=== PATIENT | male | born 1955 | race African-American/Black ===

== ENCOUNTER 2021-05-01 15:08 | Inpatient (IN) | payer OTHER ==
[2021-05-01] MEDS ORDERED: SODIUM CHLORIDE 2,313 ML IV ONE (16:30)
[2021-05-01] MEDS ORDERED: PIPERACILLIN/TAZOBACTAM 4.5 GM VIAL IVPB ONE (16:31)
[2021-05-01] MEDS ORDERED: VANCOMYCIN 1,000 MG in DEXTROSE 5%-WATER - 250 ML IVPB ONE (16:31)
[2021-05-01] MEDS ORDERED: VANCOMYCIN 1 GRAM (PRE-DOCKED) 1,000 MG/250 ML BAG IVPB ONE (16:40)
[2021-05-01] MEDS ORDERED: PIPERACILLIN/TAZOB 4.5 GM 4.5 GM/100 ML BAG IVPB ONE (16:40)
[2021-05-01 18:06] LABS: BASO % 0.8 % (0-2.0); EOS % 4.8 % (0-4.5); HEMATOCRIT 34.9 % (35.4-49); HEMOGLOBIN 11.3 GM/dL (11.7-16.9); LYMPH % 12.3 % (8-40); MCH 25.9 pg (25.7-33.7); MCHC 32.4 g/dl (32.0-35.9); MEAN PLT VOLUME 7.1 fl (7.5-11.1); MONO % 12.2 % (3.8-10.2); NEUT % 69.9 % (42.8-82.8); PLATELET COUNT 203 10^3/uL (134-434); RBC 4.37 M/mm3 (4.00-5.60); RDW 14.5 % (11.9-15.9); WHITE BLOOD COUNT 5.8 K/mm3 (4.0-10.0)
[2021-05-01 18:10] LABS: EPI CELLS >36 /uL (0-25.1); HYALINE CASTS 59 /uL (0-3.1); URINE APPEARANCE TURBID; URINE BACTERIA >9,000 /uL (0-1359); URINE BILIRUBIN NEGATIVE (NEGATIVE); URINE COLOR YELLOW; URINE GLUCOSE (UA) NEGATIVE (NEGATIVE); URINE KETONE NEGATIVE (NEGATIVE); URINE LEUK ESTERASE 3+ (NEGATIVE); URINE NITRITE POSITIVE (NEGATIVE); URINE PROTEIN 2+ (NEGATIVE); URINE UROBILINOGEN 0.2 mg/dL (0.2-1.0); URINE WBC 26550 /uL (0-25.8)
[2021-05-01 18:14] LABS: INR 1.19 (0.83-1.09); PROTHROMBIN TIME (PATIENT) 13.3 SEC (9.7-13.0)
[2021-05-01 18:16] LABS: ACTIVATED PTT 37.3 SECONDS (25.2-36.5)
[2021-05-01 18:25] LABS: URINE RBC 149.3 /uL (0-23.9)
[2021-05-01 18:31] LABS: CHLORIDE 104 mmol/L (98-107); SODIUM 138 mmol/L (136-145)
[2021-05-01 18:32] LABS: ANION GAP 9 MMOL/L (8-16); BLOOD UREA NITROGEN 10.2 mg/dL (7-18); CO2 25 mmol/L (21-32); GLUCOSE,RANDOM 90 mg/dL (74-106)
[2021-05-01 18:36] LABS: CREATININE 1.4 mg/dL (0.55-1.3); SGPT/ALT < 6 U/L (13-61)
[2021-05-01 18:37] LABS: SGOT/AST 13 U/L (15-37)
[2021-05-01 18:38] LABS: ALK PHOS 44 U/L (45-117); BILIRUBIN,TOTAL 1.4 mg/dL (0.2-1); TOT PROT 7.6 g/dl (6.4-8.2)
[2021-05-01] MEDS ORDERED: ENOXAPARIN NA (PORCINE) 80 MG/0.8 ML DISP.SYRIN SQ SCH (22:30)
[2021-05-01] MEDS ORDERED: SODIUM CHLORIDE 1,000 ML IV SCH (22:30)
[2021-05-01] MEDS ORDERED: HEPARIN NA (PORCINE) 5,000 UNITS/ML 1ML VIAL IVPUSH PRN (23:59)
[2021-05-02] MEDS ORDERED: HEPARIN INFUSION - 25,000 UNITS/500 ML INFUS.BAG IVPB ONE (00:42)
[2021-05-02] MEDS ORDERED: HEPARIN NA (PORCINE) 5,000 UNITS/ML 1ML VIAL ONE (00:42)
[2021-05-02] MEDS: HEPARIN INFUSION - 25,000 UNITS/500 ML INFUS.BAG IVPB SCH (00:48)
[2021-05-02] MEDS: HEPARIN NA (PORCINE) 5,000 UNITS/ML 1ML VIAL IVPUSH PRN ×2 (00:48→21:10)
[2021-05-02] MEDS ORDERED: PIPERACILLIN/TAZOBACTAM 3.375 GM VIAL IVPB ONE ×3 (01:50→17:30)
[2021-05-02] MEDS ORDERED: DEXTROSE 5%-WATER - 50 ML IVPB ONE ×3 (01:51→17:30)
[2021-05-02] MEDS: PIPERACILLIN/TAZOB 3.375 GM 3.375 GM in DEXTROSE 5%-WATER - 50 ML IVPB SCH ×3 (01:57→17:34)
[2021-05-02] MEDS ORDERED: ZINC OXIDE/PANTHENOL/VITAMIN E 56 GM TUBE TP SCH (04:00)
[2021-05-02] MEDS ORDERED: ACETAMINOPHEN 325 MG TABLET (FP) PO PRN (05:22)
[2021-05-02] MEDS ORDERED: VANCOMYCIN 1 GM in D5W (PRE-DOCKED) 1,000 MG/250 ML IVPB SCH (07:00)
[2021-05-02] MEDS ORDERED: PT OWN MED DRAWER 7, Y5N ONE ×2 (09:17→14:49)
[2021-05-02] MEDS: POLYETHYLENE GLYCOL (HEALTHYLAX) 3350 17 GM PACKET PO SCH (09:22)
[2021-05-02] MEDS: PANTOPRAZOLE 40 MG TABLET PO SCH (09:23)
[2021-05-02] MEDS: ZINC OXIDE/PANTHENOL/VITAMIN E 56 GM TUBE TP SCH (09:24)
[2021-05-02] MEDS ORDERED: FLU VACC QS2021-22(6MOS UP)/PF 60 MCG/0.5 ML SYRINGE IM ONE (10:00)
[2021-05-02 10:32] LABS: BASO % 0.5 % (0-2.0); EOS % 5.9 % (0-4.5); HEMATOCRIT 33.3 % (35.4-49); LYMPH % 10.6 % (8-40); MCH 26.4 pg (25.7-33.7); MCHC 32.9 g/dl (32.0-35.9); MEAN CELL VOLUME 80.4 fl (80-96); MEAN PLT VOLUME 7.7 fl (7.5-11.1); MONO % 14.8 % (3.8-10.2); NEUT % 68.2 % (42.8-82.8); PLATELET COUNT 193 10^3/uL (134-434); RBC 4.14 M/mm3 (4.00-5.60); RDW 14.5 % (11.9-15.9); WHITE BLOOD COUNT 5.7 K/mm3 (4.0-10.0)
[2021-05-02 11:36] LABS: ALBUMIN 2.5 g/dl (3.4-5.0); ALK PHOS 41 U/L (45-117); ANION GAP 9 MMOL/L (8-16); BILIRUBIN,TOTAL 1.2 mg/dL (0.2-1); BLOOD UREA NITROGEN 9.4 mg/dL (7-18); CALCIUM 8.5 mg/dL (8.5-10.1); CHLORIDE 113 mmol/L (98-107); CO2 22 mmol/L (21-32); CREATININE 1.5 mg/dL (0.55-1.3); GLUCOSE,RANDOM 103 mg/dL (74-106); MAGNESIUM 2.1 mg/dL (1.8-2.4); PHOSPHOROUS 3.2 mg/dL (2.5-4.9); SGOT/AST 12 U/L (15-37); SGPT/ALT < 6 U/L (13-61); SODIUM 143 mmol/L (136-145); TOT PROT 7.4 g/dl (6.4-8.2)
[2021-05-02 14:06] LABS: IRON SERUM 23 ug/dL (50-175); TOTAL IRON BINDING CAPACITY 217 ug/dL (250-450)
[2021-05-02] MEDS: TAMSULOSIN HCL 0.4 MG CAP PO SCH (14:17)
[2021-05-02] MEDS: LACTATED RINGERS SOLUTION 1,000 ML/1,000 ML INFUS.BAG IV SCH (14:18)
[2021-05-02] MEDS ORDERED: SENNOSIDES 8.6MG TABLET (FP) PO SCH (22:00)
[2021-05-03] MEDS ORDERED: PIPERACILLIN/TAZOBACTAM 3.375 GM VIAL IVPB ONE ×4 (00:27→17:08)
[2021-05-03] MEDS ORDERED: DEXTROSE 5%-WATER - 50 ML IVPB ONE ×3 (00:27→17:09)
[2021-05-03] MEDS: PIPERACILLIN/TAZOB 3.375 GM 3.375 GM in DEXTROSE 5%-WATER - 50 ML IVPB SCH ×3 (01:04→17:27)
[2021-05-03] MEDS: HEPARIN INFUSION - 25,000 UNITS/500 ML INFUS.BAG IVPB SCH ×3 (05:33→15:49)
[2021-05-03] MEDS: LACTATED RINGERS SOLUTION 1,000 ML/1,000 ML INFUS.BAG IV SCH ×2 (06:37→11:35)
[2021-05-03] MEDS ORDERED: VANCOMYCIN 1 GM in D5W (PRE-DOCKED) 1,000 MG/250 ML IVPB SCH (07:00)
[2021-05-03] MEDS: TAMSULOSIN HCL 0.4 MG CAP PO SCH (09:05)
[2021-05-03] MEDS: POLYETHYLENE GLYCOL (HEALTHYLAX) 3350 17 GM PACKET PO SCH (09:05)
[2021-05-03] MEDS: PANTOPRAZOLE 40 MG TABLET PO SCH (09:05)
[2021-05-03] MEDS ORDERED: ceFAZolin SODIUM 1 GM VIAL IVPB ONE ×2 (09:07→10:18)
[2021-05-03 09:34] LABS: HEMATOCRIT 31.2 % (35.4-49); HEMOGLOBIN 10.2 GM/dL (11.7-16.9); MCH 26.6 pg (25.7-33.7); MCHC 32.6 g/dl (32.0-35.9); MEAN CELL VOLUME 81.5 fl (80-96); MEAN PLT VOLUME 8.4 fl (7.5-11.1); PLATELET COUNT 204 10^3/uL (134-434); RBC 3.82 M/mm3 (4.00-5.60); RDW 14.7 % (11.9-15.9); WHITE BLOOD COUNT 4.1 K/mm3 (4.0-10.0)
[2021-05-03] MEDS ORDERED: MIDAZOLAM HCL 2 MG/2 ML SINGLE DOSE VIAL ONE (10:11)
[2021-05-03] MEDS ORDERED: DEXAMETHASONE SOD PHOSPHATE 4 MG/1 ML VIAL ONE (10:11)
[2021-05-03] MEDS ORDERED: PROPOFOL 20 ML ONE ×2 (10:11)
[2021-05-03] MEDS ORDERED: KETOROLAC TROMETHAMINE 30 MG/1 ML VIAL ONE (10:11)
[2021-05-03 10:34] LABS: BLOOD UREA NITROGEN 8.1 mg/dL (7-18); CALCIUM 8.2 mg/dL (8.5-10.1)
[2021-05-03 10:37] LABS: CREATININE 1.3 mg/dL (0.55-1.3)
[2021-05-03] MEDS ORDERED: oxyCODONE HCL 5 MG TABLET PO PRN (10:52)
[2021-05-03] MEDS ORDERED: ONDANSETRON 4 MG/2 ML VIAL IVPUSH PRN ×2 (10:52→11:32)
[2021-05-03] MEDS ORDERED: PROMETHAZINE HCL 25 MG/1 ML VIAL IVPUSH PRN ×2 (10:52→11:32)
[2021-05-03] MEDS: ZINC OXIDE/PANTHENOL/VITAMIN E 56 GM TUBE TP SCH (10:57)
[2021-05-03] MEDS ORDERED: HEPARIN NA (PORCINE) 5,000 UNITS/ML 1ML VIAL IVPUSH PRN ×2 (11:32)
[2021-05-03] MEDS ORDERED: HYDROmorphone HCl 2 MG/ML VIAL ONE (11:37)
[2021-05-03] MEDS ORDERED: HYDROmorphone HCl 2 MG/ML VIAL IVPUSH ONE ×2 (11:40→14:00)
[2021-05-03] MEDS ORDERED: HEPARIN INFUSION - 25,000 UNITS/500 ML INFUS.BAG IVPB ONE (11:52)
[2021-05-03] MEDS ORDERED: ACETAMINOPHEN 325 MG TABLET (FP) PO PRN (13:17)
[2021-05-03 16:43] VITALS: BMI 20.5
[2021-05-03] MEDS: SENNOSIDES 8.6MG TABLET (FP) PO SCH (22:18)
[2021-05-04] MEDS ORDERED: PIPERACILLIN/TAZOBACTAM 3.375 GM VIAL IVPB ONE ×3 (01:16→17:17)
[2021-05-04] MEDS ORDERED: DEXTROSE 5%-WATER - 50 ML IVPB ONE ×3 (01:16→17:17)
[2021-05-04] MEDS: PIPERACILLIN/TAZOB 3.375 GM 3.375 GM in DEXTROSE 5%-WATER - 50 ML IVPB SCH ×3 (02:01→17:25)
[2021-05-04] MEDS: LACTATED RINGERS SOLUTION 1,000 ML/1,000 ML INFUS.BAG IV SCH ×2 (08:46→11:30)
[2021-05-04] MEDS: TAMSULOSIN HCL 0.4 MG CAP PO SCH (08:47)
[2021-05-04] MEDS ORDERED: PT OWN MED DRAWER 7, Y5N ONE ×4 (09:03→17:17)
[2021-05-04 09:09] LABS: HEMATOCRIT 32.2 % (35.4-49); HEMOGLOBIN 10.6 GM/dL (11.7-16.9); MCH 26.5 pg (25.7-33.7); MCHC 32.8 g/dl (32.0-35.9); MEAN CELL VOLUME 80.8 fl (80-96); MEAN PLT VOLUME 7.7 fl (7.5-11.1); PLATELET COUNT 184 10^3/uL (134-434); RBC 3.99 M/mm3 (4.00-5.60); RDW 14.5 % (11.9-15.9); WHITE BLOOD COUNT 3.9 K/mm3 (4.0-10.0)
[2021-05-04] MEDS: POLYETHYLENE GLYCOL (HEALTHYLAX) 3350 17 GM PACKET PO SCH (09:15)
[2021-05-04] MEDS: PANTOPRAZOLE 40 MG TABLET PO SCH (09:18)
[2021-05-04] MEDS: HEPARIN INFUSION - 25,000 UNITS/500 ML INFUS.BAG IVPB SCH ×3 (09:31→17:54)
[2021-05-04 11:00] LABS: BLOOD UREA NITROGEN 11.5 mg/dL (7-18); CALCIUM 8.6 mg/dL (8.5-10.1); CREATININE 1.3 mg/dL (0.55-1.3); MAGNESIUM 2.1 mg/dL (1.8-2.4); PHOSPHOROUS 3.9 mg/dL (2.5-4.9)
[2021-05-04] MEDS: KETOROLAC TROMETHAMINE 10 MG TABLET PO SCH ×2 (13:01→17:25)
[2021-05-04] MEDS: ZINC OXIDE/PANTHENOL/VITAMIN E 56 GM TUBE TP SCH (13:04)
[2021-05-04] MEDS ORDERED: oxyCODONE HCL 5 MG TABLET PO PRN (14:53)
[2021-05-05] MEDS: SENNOSIDES 8.6MG TABLET (FP) PO SCH ×2 (00:01→21:55)
[2021-05-05] MEDS ORDERED: DEXTROSE 5%-WATER - 50 ML IVPB ONE ×3 (01:40→17:50)
[2021-05-05] MEDS ORDERED: PIPERACILLIN/TAZOBACTAM 3.375 GM VIAL IVPB ONE ×3 (01:40→17:50)
[2021-05-05] MEDS ORDERED: PT OWN MED DRAWER 7, Y5N ONE ×3 (02:02→12:14)
[2021-05-05] MEDS: PIPERACILLIN/TAZOB 3.375 GM 3.375 GM in DEXTROSE 5%-WATER - 50 ML IVPB SCH ×3 (02:09→18:41)
[2021-05-05] MEDS: KETOROLAC TROMETHAMINE 10 MG TABLET PO SCH ×5 (02:10→22:00)
[2021-05-05 08:34] LABS: HEMATOCRIT 29.3 % (35.4-49); HEMOGLOBIN 9.7 GM/dL (11.7-16.9); MCH 26.7 pg (25.7-33.7); MCHC 33.2 g/dl (32.0-35.9); MEAN CELL VOLUME 80.6 fl (80-96); MEAN PLT VOLUME 7.3 fl (7.5-11.1); PLATELET COUNT 176 10^3/uL (134-434); RBC 3.63 M/mm3 (4.00-5.60); RDW 14.4 % (11.9-15.9); WHITE BLOOD COUNT 3.5 K/mm3 (4.0-10.0)
[2021-05-05 09:29] LABS: BLOOD UREA NITROGEN 9.4 mg/dL (7-18); CALCIUM 7.9 mg/dL (8.5-10.1); CREATININE 1.3 mg/dL (0.55-1.3)
[2021-05-05] MEDS: ZINC OXIDE/PANTHENOL/VITAMIN E 56 GM TUBE TP SCH ×2 (10:06→19:02)
[2021-05-05] MEDS: TAMSULOSIN HCL 0.4 MG CAP PO SCH (10:06)
[2021-05-05] MEDS: POLYETHYLENE GLYCOL (HEALTHYLAX) 3350 17 GM PACKET PO SCH (10:07)
[2021-05-05] MEDS: PANTOPRAZOLE 40 MG TABLET PO SCH (10:07)
[2021-05-05] MEDS ORDERED: POTASSIUM CHLORIDE TABS 20 MEQ TABLET.ER (FP) PO ONE (10:13)
[2021-05-05] MEDS: LACTATED RINGERS SOLUTION 1,000 ML/1,000 ML INFUS.BAG IV SCH (13:14)
[2021-05-05] MEDS: HEPARIN INFUSION - 25,000 UNITS/500 ML INFUS.BAG IVPB SCH (13:15)
[2021-05-05] MEDS ORDERED: NAPH,MB-DB/K PH,MBDB POWDER PACKET PO SCH (22:00)
[2021-05-06] MEDS ORDERED: DEXTROSE 5%-WATER - 50 ML IVPB ONE ×3 (01:56→17:52)
[2021-05-06] MEDS ORDERED: PIPERACILLIN/TAZOBACTAM 3.375 GM VIAL IVPB ONE ×3 (01:56→17:51)
[2021-05-06] MEDS: PIPERACILLIN/TAZOB 3.375 GM 3.375 GM in DEXTROSE 5%-WATER - 50 ML IVPB SCH ×3 (01:58→18:07)
[2021-05-06] MEDS: LACTATED RINGERS SOLUTION 1,000 ML/1,000 ML INFUS.BAG IV SCH ×2 (02:02→12:53)
[2021-05-06] MEDS: KETOROLAC TROMETHAMINE 10 MG TABLET PO SCH ×4 (05:07→23:59)
[2021-05-06 09:22] LABS: HEMATOCRIT 33.1 % (35.4-49); HEMOGLOBIN 10.7 GM/dL (11.7-16.9); MCH 26.4 pg (25.7-33.7); MCHC 32.3 g/dl (32.0-35.9); MEAN CELL VOLUME 81.8 fl (80-96); MEAN PLT VOLUME 7.9 fl (7.5-11.1); PLATELET COUNT 179 10^3/uL (134-434); RBC 4.04 M/mm3 (4.00-5.60); RDW 14.3 % (11.9-15.9); WHITE BLOOD COUNT 3.9 K/mm3 (4.0-10.0)
[2021-05-06] MEDS: TAMSULOSIN HCL 0.4 MG CAP PO SCH (09:32)
[2021-05-06] MEDS: PANTOPRAZOLE 40 MG TABLET PO SCH (09:32)
[2021-05-06] MEDS: POLYETHYLENE GLYCOL (HEALTHYLAX) 3350 17 GM PACKET PO SCH (09:33)
[2021-05-06] MEDS: ZINC OXIDE/PANTHENOL/VITAMIN E 56 GM TUBE TP SCH (09:37)
[2021-05-06 09:46] LABS: BLOOD UREA NITROGEN 7.8 mg/dL (7-18); CALCIUM 8.5 mg/dL (8.5-10.1)
[2021-05-06 09:50] LABS: CREATININE 1.1 mg/dL (0.55-1.3); PHOSPHOROUS 3.2 mg/dL (2.5-4.9)
[2021-05-06] MEDS ORDERED: PT OWN MED DRAWER 7, Y5N ONE ×3 (12:36→21:39)
[2021-05-06] MEDS: HEPARIN INFUSION - 25,000 UNITS/500 ML INFUS.BAG IVPB SCH (12:53)
[2021-05-06] MEDS: SENNOSIDES 8.6MG TABLET (FP) PO SCH (23:59)
[2021-05-07] MEDS ORDERED: DEXTROSE 5%-WATER - 50 ML IVPB ONE ×3 (01:59→16:51)
[2021-05-07] MEDS ORDERED: PIPERACILLIN/TAZOBACTAM 3.375 GM VIAL IVPB ONE ×3 (01:59→16:51)
[2021-05-07] MEDS: PIPERACILLIN/TAZOB 3.375 GM 3.375 GM in DEXTROSE 5%-WATER - 50 ML IVPB SCH ×3 (02:23→17:00)
[2021-05-07] MEDS: KETOROLAC TROMETHAMINE 10 MG TABLET PO SCH ×4 (04:16→22:57)
[2021-05-07] MEDS: HEPARIN INFUSION - 25,000 UNITS/500 ML INFUS.BAG IVPB SCH ×2 (08:01→12:06)
[2021-05-07 09:10] LABS: HEMATOCRIT 31.4 % (35.4-49); HEMOGLOBIN 10.4 GM/dL (11.7-16.9); MCH 26.6 pg (25.7-33.7); MCHC 33.2 g/dl (32.0-35.9); MEAN CELL VOLUME 80.1 fl (80-96); MEAN PLT VOLUME 7.4 fl (7.5-11.1); PLATELET COUNT 185 10^3/uL (134-434); RBC 3.92 M/mm3 (4.00-5.60); RDW 14.4 % (11.9-15.9); WHITE BLOOD COUNT 4.2 K/mm3 (4.0-10.0)
[2021-05-07] MEDS: PANTOPRAZOLE 40 MG TABLET PO SCH (09:28)
[2021-05-07] MEDS: ZINC OXIDE/PANTHENOL/VITAMIN E 56 GM TUBE TP SCH (09:28)
[2021-05-07] MEDS: TAMSULOSIN HCL 0.4 MG CAP PO SCH (09:28)
[2021-05-07] MEDS: POLYETHYLENE GLYCOL (HEALTHYLAX) 3350 17 GM PACKET PO SCH (09:28)
[2021-05-07 09:41] LABS: BLOOD UREA NITROGEN 9.7 mg/dL (7-18)
[2021-05-07 09:45] LABS: CREATININE 1.3 mg/dL (0.55-1.3)
[2021-05-07 09:47] LABS: CALCIUM 8.6 mg/dL (8.5-10.1)
[2021-05-07] MEDS ORDERED: PT OWN MED DRAWER 7, Y5N ONE ×2 (11:48→17:23)
[2021-05-07] MEDS: SENNOSIDES 8.6MG TABLET (FP) PO SCH (21:32)
[2021-05-08] MEDS ORDERED: PIPERACILLIN/TAZOBACTAM 3.375 GM VIAL IVPB ONE ×3 (01:20→16:39)
[2021-05-08] MEDS ORDERED: DEXTROSE 5%-WATER - 50 ML IVPB ONE ×3 (01:21→16:39)
[2021-05-08] MEDS: PIPERACILLIN/TAZOB 3.375 GM 3.375 GM in DEXTROSE 5%-WATER - 50 ML IVPB SCH ×3 (01:54→17:37)
[2021-05-08] MEDS: KETOROLAC TROMETHAMINE 10 MG TABLET PO SCH ×2 (05:55→12:02)
[2021-05-08] MEDS: ASCORBIC ACID 500 MG TABLET (FP) PO SCH (09:52)
[2021-05-08] MEDS: PANTOPRAZOLE 40 MG TABLET PO SCH (09:53)
[2021-05-08] MEDS: AMINO ACIDS/PROTEIN HYDROLYS 30 ML LIQUID.PKT PO SCH (09:53)
[2021-05-08] MEDS: POLYETHYLENE GLYCOL (HEALTHYLAX) 3350 17 GM PACKET PO SCH (09:53)
[2021-05-08] MEDS: TAMSULOSIN HCL 0.4 MG CAP PO SCH (09:53)
[2021-05-08 10:31] LABS: HEMATOCRIT 32.5 % (35.4-49); HEMOGLOBIN 10.7 GM/dL (11.7-16.9); MCH 26.6 pg (25.7-33.7); MCHC 32.9 g/dl (32.0-35.9); MEAN CELL VOLUME 81.1 fl (80-96); MEAN PLT VOLUME 7.1 fl (7.5-11.1); PLATELET COUNT 184 10^3/uL (134-434); RDW 14.6 % (11.9-15.9); WHITE BLOOD COUNT 4.7 K/mm3 (4.0-10.0)
[2021-05-08] MEDS ORDERED: KETOROLAC TROMETHAMINE 10 MG TABLET PO PRN (11:08)
[2021-05-08] MEDS ORDERED: ACETAMINOPHEN 325 MG TABLET (FP) PO PRN (11:29)
[2021-05-08 12:00] LABS: BLOOD UREA NITROGEN 14.4 mg/dL (7-18)
[2021-05-08 12:01] LABS: CALCIUM 8.6 mg/dL (8.5-10.1); CREATININE 1.2 mg/dL (0.55-1.3)
[2021-05-08] MEDS: HEPARIN INFUSION - 25,000 UNITS/500 ML INFUS.BAG IVPB SCH (16:30)
[2021-05-08] MEDS: OXYBUTYNIN CHLORIDE 5 MG TABLET PO SCH ×2 (17:36→21:00)
[2021-05-08] MEDS: ZINC OXIDE/PANTHENOL/VITAMIN E 56 GM TUBE TP SCH (17:37)
[2021-05-08] MEDS ORDERED: PT OWN MED DRAWER 7, Y5N ONE (20:37)
[2021-05-08] MEDS: SENNOSIDES 8.6MG TABLET (FP) PO SCH (21:00)
[2021-05-09] MEDS ORDERED: PIPERACILLIN/TAZOBACTAM 3.375 GM VIAL IVPB ONE ×3 (02:14→16:25)
[2021-05-09] MEDS ORDERED: DEXTROSE 5%-WATER - 50 ML IVPB ONE ×3 (02:14→16:25)
[2021-05-09] MEDS: PIPERACILLIN/TAZOB 3.375 GM 3.375 GM in DEXTROSE 5%-WATER - 50 ML IVPB SCH ×3 (02:17→18:16)
[2021-05-09 04:23] LABS: BASO % 0.8 % (0-2.0); EOS % 9.8 % (0-4.5); LYMPH % 23.2 % (8-40); MCH 26.9 pg (25.7-33.7); MCHC 33.2 g/dl (32.0-35.9); MEAN CELL VOLUME 81.2 fl (80-96); MONO % 12.1 % (3.8-10.2); NEUT % 54.1 % (42.8-82.8); PLATELET COUNT 188 10^3/uL (134-434); RBC 4.07 M/mm3 (4.00-5.60); RDW 14.8 % (11.9-15.9)
[2021-05-09] MEDS ORDERED: SODIUM CHLORIDE 1,000 ML IV STA (04:38)
[2021-05-09 04:48] LABS: CALCIUM 8.4 mg/dL (8.5-10.1)
[2021-05-09 04:49] LABS: ALBUMIN 2.5 g/dl (3.4-5.0)
[2021-05-09 04:52] LABS: CREATININE 1.5 mg/dL (0.55-1.3)
[2021-05-09 04:53] LABS: BILIRUBIN,TOTAL 0.5 mg/dL (0.2-1); TOT PROT 6.7 g/dl (6.4-8.2)
[2021-05-09] MEDS ORDERED: PT OWN MED DRAWER 7, Y5N ONE ×2 (09:30→21:42)
[2021-05-09] MEDS: POLYETHYLENE GLYCOL (HEALTHYLAX) 3350 17 GM PACKET PO SCH (09:33)
[2021-05-09] MEDS: OXYBUTYNIN CHLORIDE 5 MG TABLET PO SCH ×2 (09:33→22:19)
[2021-05-09] MEDS: AMINO ACIDS/PROTEIN HYDROLYS 30 ML LIQUID.PKT PO SCH (09:33)
[2021-05-09] MEDS: ASCORBIC ACID 500 MG TABLET (FP) PO SCH (09:33)
[2021-05-09] MEDS: PANTOPRAZOLE 40 MG TABLET PO SCH (09:33)
[2021-05-09] MEDS: TAMSULOSIN HCL 0.4 MG CAP PO SCH (09:33)
[2021-05-09] MEDS ORDERED: KCL 10 MEQ IVPB 10 MEQ/100 ML INFUS.BAG IVPB SCH (10:00)
[2021-05-09 10:12] LABS: HEMATOCRIT 34.9 % (35.4-49); HEMOGLOBIN 11.4 GM/dL (11.7-16.9); MCH 26.8 pg (25.7-33.7); MCHC 32.8 g/dl (32.0-35.9); MEAN CELL VOLUME 81.7 fl (80-96); MEAN PLT VOLUME 7.3 fl (7.5-11.1); PLATELET COUNT 193 10^3/uL (134-434); RBC 4.27 M/mm3 (4.00-5.60); RDW 14.9 % (11.9-15.9); WHITE BLOOD COUNT 5.1 K/mm3 (4.0-10.0)
[2021-05-09] MEDS ORDERED: POTASSIUM CHLORIDE TABS 20 MEQ TABLET.ER (FP) PO ONE (10:27)
[2021-05-09] MEDS ORDERED: LACTATED RINGERS SOLUTION 1,000 ML/1,000 ML INFUS.BAG IV STA (10:29)
[2021-05-09] MEDS: morphine SULFATE 4 MG/ML VIAL IVPUSH PRN ×2 (10:57→15:28)
[2021-05-09 10:58] LABS: BLOOD UREA NITROGEN 17.4 mg/dL (7-18); CREATININE 1.3 mg/dL (0.55-1.3)
[2021-05-09] MEDS ORDERED: HYDROmorphone HCl 2 MG/ML VIAL IVPB ONE (12:30)
[2021-05-09] MEDS: LACTATED RINGERS SOLUTION 1,000 ML/1,000 ML INFUS.BAG IV SCH (12:39)
[2021-05-09 16:39] LABS: BASO % 0.7 % (0-2.0); EOS % 3.6 % (0-4.5); HEMATOCRIT 36.6 % (35.4-49); HEMOGLOBIN 11.9 GM/dL (11.7-16.9); LYMPH % 11.6 % (8-40); MCHC 32.6 g/dl (32.0-35.9); MEAN CELL VOLUME 82.7 fl (80-96); MEAN PLT VOLUME 7.5 fl (7.5-11.1); MONO % 10.2 % (3.8-10.2); NEUT % 73.9 % (42.8-82.8); PLATELET COUNT 211 10^3/uL (134-434); RBC 4.43 M/mm3 (4.00-5.60); RDW 14.9 % (11.9-15.9); WHITE BLOOD COUNT 8.2 K/mm3 (4.0-10.0)
[2021-05-09] MEDS: ZINC OXIDE/PANTHENOL/VITAMIN E 56 GM TUBE TP SCH (16:53)
[2021-05-09] MEDS: HEPARIN INFUSION - 25,000 UNITS/500 ML INFUS.BAG IVPB SCH (18:16)
[2021-05-09] MEDS: SENNOSIDES 8.6MG TABLET (FP) PO SCH (21:48)
[2021-05-10] MEDS ORDERED: DEXTROSE 5%-WATER - 50 ML IVPB ONE ×3 (02:08→17:33)
[2021-05-10] MEDS ORDERED: PIPERACILLIN/TAZOBACTAM 3.375 GM VIAL IVPB ONE ×3 (02:08→17:33)
[2021-05-10] MEDS: PIPERACILLIN/TAZOB 3.375 GM 3.375 GM in DEXTROSE 5%-WATER - 50 ML IVPB SCH ×3 (02:16→17:36)
[2021-05-10 10:09] LABS: BLOOD UREA NITROGEN 19.3 mg/dL (7-18)
[2021-05-10 10:10] LABS: ALBUMIN 2.5 g/dl (3.4-5.0); MAGNESIUM 2.1 mg/dL (1.8-2.4)
[2021-05-10 10:12] LABS: PHOSPHOROUS 4.6 mg/dL (2.5-4.9)
[2021-05-10 10:13] LABS: CREATININE 1.8 mg/dL (0.55-1.3); TOT PROT 6.7 g/dl (6.4-8.2)
[2021-05-10 10:26] LABS: BILIRUBIN,TOTAL 0.7 mg/dL (0.2-1)
[2021-05-10] MEDS: morphine SULFATE 4 MG/ML VIAL IVPUSH PRN (10:30)
[2021-05-10] MEDS: TAMSULOSIN HCL 0.4 MG CAP PO SCH (10:42)
[2021-05-10] MEDS: OXYBUTYNIN CHLORIDE 5 MG TABLET PO SCH (10:42)
[2021-05-10] MEDS: AMINO ACIDS/PROTEIN HYDROLYS 30 ML LIQUID.PKT PO SCH (10:42)
[2021-05-10] MEDS: POLYETHYLENE GLYCOL (HEALTHYLAX) 3350 17 GM PACKET PO SCH (10:42)
[2021-05-10] MEDS: ZINC OXIDE/PANTHENOL/VITAMIN E 56 GM TUBE TP SCH (10:42)
[2021-05-10] MEDS: PANTOPRAZOLE 40 MG TABLET PO SCH (10:42)
[2021-05-10] MEDS: ASCORBIC ACID 500 MG TABLET (FP) PO SCH (10:43)
[2021-05-10 12:13] LABS: HEMATOCRIT 31.1 % (35.4-49); HEMOGLOBIN 10.1 GM/dL (11.7-16.9); MCH 26.8 pg (25.7-33.7); MCHC 32.5 g/dl (32.0-35.9); MEAN CELL VOLUME 82.4 fl (80-96); MEAN PLT VOLUME 7.3 fl (7.5-11.1); PLATELET COUNT 173 10^3/uL (134-434); RBC 3.78 M/mm3 (4.00-5.60); RDW 15.3 % (11.9-15.9); WHITE BLOOD COUNT 5.7 K/mm3 (4.0-10.0)
[2021-05-10] MEDS: LACTATED RINGERS SOLUTION 1,000 ML/1,000 ML INFUS.BAG IV SCH (12:58)
[2021-05-10] MEDS ORDERED: PROPOFOL 20 ML ONE (14:30)
[2021-05-10] MEDS ORDERED: MIDAZOLAM HCL 2 MG/2 ML SINGLE DOSE VIAL ONE (14:30)
[2021-05-10] MEDS ORDERED: ceFAZolin SODIUM 1 GM VIAL IVPB ONE (14:55)
[2021-05-10] MEDS ORDERED: DEXAMETHASONE SOD PHOSPHATE 4 MG/1 ML VIAL ONE (14:55)
[2021-05-10] MEDS ORDERED: KETOROLAC TROMETHAMINE 30 MG/1 ML VIAL ONE (14:55)
[2021-05-10] MEDS ORDERED: ceFAZolin SODIUM 1 GM VIAL ONE (14:55)
[2021-05-10] MEDS ORDERED: ACETAMINOPHEN 325 MG TABLET (FP) PO PRN (16:24)
[2021-05-10] MEDS ORDERED: LACTATED RINGERS SOLUTION 1,000 ML/1,000 ML INFUS.BAG IV SCH (16:24)
[2021-05-10] MEDS ORDERED: PT OWN MED DRAWER 7, Y5N ONE (21:24)
[2021-05-11] MEDS: OXYBUTYNIN CHLORIDE 5 MG TABLET PO SCH ×3 (00:50→21:00)
[2021-05-11] MEDS: SENNOSIDES 8.6MG TABLET (FP) PO SCH ×2 (00:51→21:05)
[2021-05-11] MEDS ORDERED: PIPERACILLIN/TAZOBACTAM 3.375 GM VIAL IVPB ONE ×3 (01:43→18:05)
[2021-05-11] MEDS ORDERED: DEXTROSE 5%-WATER - 50 ML IVPB ONE ×3 (01:44→18:05)
[2021-05-11] MEDS: PIPERACILLIN/TAZOB 3.375 GM 3.375 GM in DEXTROSE 5%-WATER - 50 ML IVPB SCH ×3 (02:20→18:19)
[2021-05-11 10:01] LABS: BLOOD UREA NITROGEN 16.8 mg/dL (7-18); CALCIUM 8.7 mg/dL (8.5-10.1)
[2021-05-11 10:04] LABS: CREATININE 1.6 mg/dL (0.55-1.3)
[2021-05-11 10:23] LABS: HEMATOCRIT 28.6 % (35.4-49); HEMOGLOBIN 9.3 GM/dL (11.7-16.9); MCH 26.9 pg (25.7-33.7); MCHC 32.4 g/dl (32.0-35.9); MEAN PLT VOLUME 8.1 fl (7.5-11.1); PLATELET COUNT 167 10^3/uL (134-434); RBC 3.44 M/mm3 (4.00-5.60); RDW 15.2 % (11.9-15.9); WHITE BLOOD COUNT 4.5 K/mm3 (4.0-10.0)
[2021-05-11] MEDS: POLYETHYLENE GLYCOL (HEALTHYLAX) 3350 17 GM PACKET PO SCH (10:53)
[2021-05-11] MEDS: AMINO ACIDS/PROTEIN HYDROLYS 30 ML LIQUID.PKT PO SCH (10:53)
[2021-05-11] MEDS: ASCORBIC ACID 500 MG TABLET (FP) PO SCH (10:53)
[2021-05-11] MEDS: TAMSULOSIN HCL 0.4 MG CAP PO SCH (10:53)
[2021-05-11] MEDS: PANTOPRAZOLE 40 MG TABLET PO SCH (10:53)
[2021-05-11] MEDS ORDERED: PT OWN MED DRAWER 7, Y5N ONE (10:54)
[2021-05-11] MEDS: ZINC OXIDE/PANTHENOL/VITAMIN E 56 GM TUBE TP SCH (11:03)
[2021-05-11] MEDS ORDERED: LACTATED RINGERS SOLUTION 1,000 ML/1,000 ML INFUS.BAG IV SCH (14:30)
[2021-05-11] MEDS: morphine SULFATE 4 MG/ML VIAL IVPUSH PRN (16:26)
[2021-05-11] MEDS: LACTATED RINGERS SOLUTION 1,000 ML/1,000 ML INFUS.BAG IV SCH (16:30)
[2021-05-12] MEDS ORDERED: DEXTROSE 5%-WATER - 50 ML IVPB ONE ×3 (01:03→17:47)
[2021-05-12] MEDS ORDERED: PIPERACILLIN/TAZOBACTAM 3.375 GM VIAL IVPB ONE ×3 (01:03→17:47)
[2021-05-12] MEDS: PIPERACILLIN/TAZOB 3.375 GM 3.375 GM in DEXTROSE 5%-WATER - 50 ML IVPB SCH ×3 (01:03→18:18)
[2021-05-12] MEDS: LACTATED RINGERS SOLUTION 1,000 ML/1,000 ML INFUS.BAG IV SCH ×2 (05:55→15:00)
[2021-05-12] MEDS ORDERED: PT OWN MED DRAWER 7, Y5N ONE (09:05)
[2021-05-12] MEDS: ASCORBIC ACID 500 MG TABLET (FP) PO SCH (09:17)
[2021-05-12] MEDS: TAMSULOSIN HCL 0.4 MG CAP PO SCH (09:17)
[2021-05-12] MEDS: PANTOPRAZOLE 40 MG TABLET PO SCH (09:17)
[2021-05-12] MEDS: AMINO ACIDS/PROTEIN HYDROLYS 30 ML LIQUID.PKT PO SCH (09:17)
[2021-05-12] MEDS: OXYBUTYNIN CHLORIDE 5 MG TABLET PO SCH ×2 (09:18→21:29)
[2021-05-12] MEDS: POLYETHYLENE GLYCOL (HEALTHYLAX) 3350 17 GM PACKET PO SCH (09:19)
[2021-05-12 09:55] LABS: HEMATOCRIT 26.5 % (35.4-49); HEMOGLOBIN 8.6 GM/dL (11.7-16.9); MCH 26.9 pg (25.7-33.7); MCHC 32.4 g/dl (32.0-35.9); MEAN CELL VOLUME 82.9 fl (80-96); MEAN PLT VOLUME 7.9 fl (7.5-11.1); PLATELET COUNT 154 10^3/uL (134-434); RDW 15.7 % (11.9-15.9)
[2021-05-12 10:12] LABS: CALCIUM 8.4 mg/dL (8.5-10.1)
[2021-05-12 10:13] LABS: BLOOD UREA NITROGEN 18.9 mg/dL (7-18)
[2021-05-12 10:16] LABS: CREATININE 1.4 mg/dL (0.55-1.3)
[2021-05-12] MEDS: ZINC OXIDE/PANTHENOL/VITAMIN E 56 GM TUBE TP SCH (12:26)
[2021-05-12] MEDS: SENNOSIDES 8.6MG TABLET (FP) PO SCH (21:30)
[2021-05-13] MEDS ORDERED: PIPERACILLIN/TAZOBACTAM 3.375 GM VIAL IVPB ONE ×2 (01:26→09:59)
[2021-05-13] MEDS ORDERED: DEXTROSE 5%-WATER - 50 ML IVPB ONE ×2 (01:26→09:59)
[2021-05-13] MEDS: PIPERACILLIN/TAZOB 3.375 GM 3.375 GM in DEXTROSE 5%-WATER - 50 ML IVPB SCH ×2 (01:28→10:09)
[2021-05-13 09:23] LABS: HEMATOCRIT 29.2 % (35.4-49); HEMOGLOBIN 9.4 GM/dL (11.7-16.9); MCH 26.9 pg (25.7-33.7); MCHC 32.3 g/dl (32.0-35.9); MEAN CELL VOLUME 83.3 fl (80-96); MEAN PLT VOLUME 7.8 fl (7.5-11.1); PLATELET COUNT 171 10^3/uL (134-434); RBC 3.51 M/mm3 (4.00-5.60); RDW 16.1 % (11.9-15.9); WHITE BLOOD COUNT 4.7 K/mm3 (4.0-10.0)
[2021-05-13 09:56] LABS: ALBUMIN 2.4 g/dl (3.4-5.0); BLOOD UREA NITROGEN 19.7 mg/dL (7-18); CREATININE 1.3 mg/dL (0.55-1.3); PHOSPHOROUS 3.9 mg/dL (2.5-4.9)
[2021-05-13 09:57] LABS: BILIRUBIN,TOTAL 0.6 mg/dL (0.2-1); MAGNESIUM 1.8 mg/dL (1.8-2.4); TOT PROT 6.3 g/dl (6.4-8.2)
[2021-05-13] MEDS ORDERED: PT OWN MED DRAWER 7, Y5N ONE ×2 (09:59→10:05)
[2021-05-13] MEDS: morphine SULFATE 4 MG/ML VIAL IVPUSH PRN ×2 (10:05→14:28)
[2021-05-13] MEDS: LACTATED RINGERS SOLUTION 1,000 ML/1,000 ML INFUS.BAG IV SCH ×2 (10:09→14:30)
[2021-05-13] MEDS: PANTOPRAZOLE 40 MG TABLET PO SCH (10:11)
[2021-05-13] MEDS: AMINO ACIDS/PROTEIN HYDROLYS 30 ML LIQUID.PKT PO SCH (10:11)
[2021-05-13] MEDS: POLYETHYLENE GLYCOL (HEALTHYLAX) 3350 17 GM PACKET PO SCH (10:11)
[2021-05-13] MEDS: TAMSULOSIN HCL 0.4 MG CAP PO SCH (10:11)
[2021-05-13] MEDS: ASCORBIC ACID 500 MG TABLET (FP) PO SCH (10:11)
[2021-05-13] MEDS: OXYBUTYNIN CHLORIDE 5 MG TABLET PO SCH (10:12)
[2021-05-13] MEDS: ZINC OXIDE/PANTHENOL/VITAMIN E 56 GM TUBE TP SCH (11:56)
[2021-05-13 15:17] VITALS: BP 142/81; PULSE 102; TEMP 98.4
[2021-05-24 10:40] LABS: SIZE 3X2
[2021-05-24 10:41] LABS: WEIGHT 14
[2021-05-24 10:42] LABS: CA HYDROGEN PHOS. 20%; CA OXALATE MONOHYDR. 40%
== END 2021-05-13 17:55 | disposition home or self-care (01) | DRG 698 ==
LOC: JER 15:08 → JERBED 22:38 → J8W 05-02 01:44 → J5S 05-04 18:52
PROVIDERS: ATTEND Internal Medicine
PROC: 0TJB8ZZ Inspection of Bladder, Via Natural or Artificial Opening Endoscopic (ICD-10-PCS; 2021-05-03)
PROC: 06H03DZ Insertion of Intraluminal Device into Inferior Vena Cava, Percutaneous Approach (ICD-10-PCS; principal; 2021-05-03 09:00)
PROC: 0TCD8ZZ Extirpation of Matter from Urethra, Via Natural or Artificial Opening Endoscopic (ICD-10-PCS; 2021-05-10)
PROC: 0TCB8ZZ Extirpation of Matter from Bladder, Via Natural or Artificial Opening Endoscopic (ICD-10-PCS; 2021-05-10 16:30)
DX: T83.518A Infection and inflammatory reaction due to other urinary catheter, initial encounter (principal); L89.613 Pressure ulcer of right heel, stage 3; A41.9 Sepsis, unspecified organism; N39.0 Urinary tract infection, site not specified; I82.411 Acute embolism and thrombosis of right femoral vein; N17.9 Acute kidney failure, unspecified; G82.20 Paraplegia, unspecified; N13.6 Pyonephrosis; N21.0 Calculus in bladder; Y83.9 Surgical procedure, unspecified as the cause of abnormal reaction of the patient, or of later complication, without mention of misadventure at the time of the procedure; R31.0 Gross hematuria
CPT/HCPCS: 36415; 37191; 51600; 71045-TC-FY; 73610-TC-LT-FY; 73630-TC-LT; 74177-TC; 74430-TC-FY; 78315-TC; 80048; 80053; 81003; 82272; 82360; 82728; 83540; 83550; 83605; 83735; 84100; 84484; 85025; 85027; 85610; 85651; 85730; 86140; 86850; 86900; 86901; 87040; 87070; 87075; 87086; 87205; 88300-TC; 90686; 93005; 93010; 93971-TC; 94010; 94760; 97161-GP; 99285-25; A9503; C9803; G0008; G2251; J1644; Q9967; U0003; U0005

== ENCOUNTER 2021-05-17 12:34 | Emergency (ER) | payer OTHER ==
[2021-05-17] MEDS ORDERED: ACETAMINOPHEN 1000 MG/100 ML VIAL IVPB ONE (13:10)
[2021-05-17] MEDS ORDERED: ACETAMINOPHEN 500 MG TABLET (FP) PO ONE (14:01)
[2021-05-17] MEDS ORDERED: ACETAMINOPHEN 500 MG TABLET (FP) ONE (14:03)
[2021-05-17 14:17] VITALS: BP 120/70; BMI 20.5
[2021-05-17 14:30] LABS: ALBUMIN 3.4 g/dl (3.4-5.0); BILIRUBIN,TOTAL 0.8 mg/dl (0.2-1); TOT PROT 7.1 g/dl (6.4-8.2)
[2021-05-17 16:32] LABS: BASO % 0.8 % (0-2.0); EOS % 7.4 % (0-4.5); HEMATOCRIT 33.1 % (35.4-49); HEMOGLOBIN 10.7 GM/dL (11.7-16.9); LYMPH % 17.9 % (8-40); MCH 27.1 pg (25.7-33.7); MCHC 32.5 g/dl (32.0-35.9); MEAN CELL VOLUME 83.5 fl (80-96); MEAN PLT VOLUME 7.8 fl (7.5-11.1); MONO % 10.5 % (3.8-10.2); NEUT % 63.4 % (42.8-82.8); PLATELET COUNT 214 10^3/uL (134-434); RBC 3.96 M/mm3 (4.00-5.60); RDW 17.4 % (11.9-15.9); WHITE BLOOD COUNT 4.6 K/mm3 (4.0-10.0)
[2021-05-17] MEDS ORDERED: ERTAPENEM SODIUM 1 GM in SODIUM CHLORIDE 50 ML IVPB ONE (16:55)
[2021-05-17] MEDS ORDERED: ERTAPENEM SODIUM 1 GM VIAL ONE (17:20)
== END 2021-05-17 20:47 | disposition home or self-care (01) ==
LOC: FER 12:34
PROC: 3E0337Z Introduction of Electrolytic and Water Balance Substance into Peripheral Vein, Percutaneous Approach (ICD-10-PCS; principal; 2021-05-17)
PROC: 3E03329 Introduction of Other Anti-infective into Peripheral Vein, Percutaneous Approach (ICD-10-PCS; 2021-05-17)
DX: R31.0 Gross hematuria (principal)
CPT/HCPCS: 36415; 74176-TC; 80053; 85025; 99284-25

== ENCOUNTER 2021-06-23 13:25 | Inpatient (IN) | payer OTHER ==
[2021-06-23] MEDS ORDERED: VANCOMYCIN 1 GM in D5W (PRE-DOCKED) 1,000 MG/250 ML IVPB ONE (13:55)
[2021-06-23] MEDS ORDERED: PIPERACILLIN/TAZOB 3.375 GM 3.375 GM in DEXTROSE 5%-WATER - 50 ML IVPB ONE (13:57)
[2021-06-23] MEDS ORDERED: PIPERACILLIN/TAZOB 3.375 GM 3.375 GM/50 ML BAG IVPB ONE ×2 (14:36→21:05)
[2021-06-23] MEDS ORDERED: VANCOMYCIN 1 GRAM (PRE-DOCKED) 1,000 MG/250 ML BAG IVPB ONE (14:36)
[2021-06-23 15:30] LABS: BASO % 0.5 % (0-2.0); EOS % 6.9 % (0-4.5); HEMATOCRIT 34.3 % (35.4-49); HEMOGLOBIN 11.2 GM/dL (11.7-16.9); LYMPH % 17.2 % (8-40); MCH 26.2 pg (25.7-33.7); MCHC 32.6 g/dl (32.0-35.9); MEAN CELL VOLUME 80.3 fl (80-96); MEAN PLT VOLUME 7.7 fl (7.5-11.1); MONO % 10.6 % (3.8-10.2); NEUT % 64.8 % (42.8-82.8); PLATELET COUNT 237 10^3/uL (134-434); RBC 4.27 M/mm3 (4.00-5.60); RDW 15.3 % (11.9-15.9); WHITE BLOOD COUNT 4.1 K/mm3 (4.0-10.0)
[2021-06-23 16:03] LABS: CHLORIDE 104 mmol/L (98-107); SODIUM 136 mmol/L (136-145)
[2021-06-23 16:05] LABS: CALCIUM 8.8 mg/dL (8.5-10.1)
[2021-06-23 16:06] LABS: ALBUMIN 2.8 g/dl (3.4-5.0); BLOOD UREA NITROGEN 16.6 mg/dL (7-18); CO2 27 mmol/L (21-32); GLUCOSE,RANDOM 74 mg/dL (74-106)
[2021-06-23 16:09] LABS: SGOT/AST 71 U/L (15-37); SGPT/ALT 9 U/L (13-61)
[2021-06-23 16:11] LABS: TOT PROT 7.9 g/dl (6.4-8.2)
[2021-06-23 16:12] LABS: ALK PHOS 50 U/L (45-117)
[2021-06-23 16:14] LABS: ANION GAP 5 MMOL/L (8-16)
[2021-06-23 17:58] LABS: CALCIUM 8.7 mg/dL (8.5-10.1)
[2021-06-23 17:59] LABS: BLOOD UREA NITROGEN 15.9 mg/dL (7-18)
[2021-06-23 18:02] LABS: CREATININE 0.9 mg/dL (0.55-1.3)
[2021-06-23] MEDS ORDERED: APIXABAN 5 MG TABLET ONE (21:05)
[2021-06-23] MEDS: PIPERACILLIN/TAZOB 3.375 GM 3.375 GM in DEXTROSE 5%-WATER - 50 ML IVPB SCH (21:26)
[2021-06-23] MEDS: APIXABAN 5 MG TABLET PO SCH (21:26)
[2021-06-23] MEDS: OXYBUTYNIN CHLORIDE 5 MG TABLET PO SCH (21:26)
[2021-06-23 22:10] LABS: INR 1.48 (0.83-1.09); PROTHROMBIN TIME (PATIENT) 17.1 SEC (9.7-13.0)
[2021-06-24] MEDS ORDERED: ACETAMINOPHEN 1000 MG/100 ML BAG IVPB ONE (02:44)
[2021-06-24] MEDS ORDERED: DEXTROSE 5%-WATER - 50 ML IVPB ONE ×3 (05:07→17:17)
[2021-06-24] MEDS ORDERED: PIPERACILLIN/TAZOBACTAM 3.375 GM VIAL IVPB ONE ×3 (05:07→17:17)
[2021-06-24] MEDS: PIPERACILLIN/TAZOB 3.375 GM 3.375 GM in DEXTROSE 5%-WATER - 50 ML IVPB SCH ×6 (05:18→17:53)
[2021-06-24] MEDS ORDERED: VANCOMYCIN 1 GM in D5W (PRE-DOCKED) 1,000 MG/250 ML IVPB SCH (10:00)
[2021-06-24] MEDS ORDERED: VANCOMYCIN 1 GRAM (PRE-DOCKED) 1,000 MG/250 ML BAG IVPB ONE (10:00)
[2021-06-24] MEDS ORDERED: SODIUM CHLORIDE 0.9% 500 ML INFUS.BAG IV ONE (10:16)
[2021-06-24] MEDS: APIXABAN 5 MG TABLET PO SCH (10:23)
[2021-06-24] MEDS: OXYBUTYNIN CHLORIDE 5 MG TABLET PO SCH ×3 (10:23→21:35)
[2021-06-24] MEDS: TAMSULOSIN HCL 0.4 MG CAP PO SCH (10:23)
[2021-06-24] MEDS: POLYETHYLENE GLYCOL (HEALTHYLAX) 3350 17 GM PACKET PO SCH (10:23)
[2021-06-24 12:39] LABS: BASO % 0.6 % (0-2.0); EOS % 9.2 % (0-4.5); HEMATOCRIT 33.8 % (35.4-49); HEMOGLOBIN 10.7 GM/dL (11.7-16.9); LYMPH % 11.6 % (8-40); MCH 25.7 pg (25.7-33.7); MCHC 31.6 g/dl (32.0-35.9); MEAN CELL VOLUME 81.5 fl (80-96); MEAN PLT VOLUME 7.6 fl (7.5-11.1); NEUT % 66.6 % (42.8-82.8); PLATELET COUNT 240 10^3/uL (134-434); RBC 4.15 M/mm3 (4.00-5.60); RDW 14.6 % (11.9-15.9); WHITE BLOOD COUNT 3.9 K/mm3 (4.0-10.0)
[2021-06-24 12:59] LABS: CALCIUM 8.5 mg/dL (8.5-10.1)
[2021-06-24 13:00] LABS: BLOOD UREA NITROGEN 17.4 mg/dL (7-18); MAGNESIUM 2.1 mg/dL (1.8-2.4)
[2021-06-24 13:03] LABS: PHOSPHOROUS 3.5 mg/dL (2.5-4.9)
[2021-06-24] MEDS: ACETAMINOPHEN 1000 MG/100 ML BAG IVPB PRN (15:12)
[2021-06-24] MEDS ORDERED: SODIUM CHLORIDE 1,000 ML IV STA ×2 (16:13→16:15)
[2021-06-24] MEDS ORDERED: LACTATED RINGERS SOLUTION 1,000 ML/1,000 ML INFUS.BAG IV SCH (18:45)
[2021-06-24] MEDS: ENOXAPARIN NA (PORCINE) 60 MG/0.6 ML DISP.SYRIN SQ SCH (21:25)
[2021-06-25] MEDS ORDERED: DEXTROSE 5%-WATER - 50 ML IVPB ONE ×3 (01:21→17:21)
[2021-06-25] MEDS ORDERED: PIPERACILLIN/TAZOBACTAM 3.375 GM VIAL IVPB ONE ×3 (01:21→17:20)
[2021-06-25] MEDS: PIPERACILLIN/TAZOB 3.375 GM 3.375 GM in DEXTROSE 5%-WATER - 50 ML IVPB SCH ×3 (01:24→17:32)
[2021-06-25] MEDS: TAMSULOSIN HCL 0.4 MG CAP PO SCH (08:42)
[2021-06-25] MEDS: ACETAMINOPHEN 1000 MG/100 ML BAG IVPB PRN (08:46)
[2021-06-25] MEDS: POLYETHYLENE GLYCOL (HEALTHYLAX) 3350 17 GM PACKET PO SCH (09:37)
[2021-06-25] MEDS: OXYBUTYNIN CHLORIDE 5 MG TABLET PO SCH ×2 (09:37→21:11)
[2021-06-25] MEDS: ENOXAPARIN NA (PORCINE) 60 MG/0.6 ML DISP.SYRIN SQ SCH ×2 (09:37→21:11)
[2021-06-25 13:58] VITALS: BMI 20.9
[2021-06-25] MEDS: AMINO ACIDS/PROTEIN HYDROLYS 30 ML LIQUID.PKT PO SCH (17:31)
[2021-06-25] MEDS: ASCORBIC ACID 500 MG TABLET (FP) PO SCH (21:10)
[2021-06-26] MEDS ORDERED: PIPERACILLIN/TAZOBACTAM 3.375 GM VIAL IVPB ONE ×3 (00:38→16:06)
[2021-06-26] MEDS ORDERED: DEXTROSE 5%-WATER - 50 ML IVPB ONE ×3 (00:38→16:06)
[2021-06-26] MEDS: PIPERACILLIN/TAZOB 3.375 GM 3.375 GM in DEXTROSE 5%-WATER - 50 ML IVPB SCH ×3 (01:08→17:48)
[2021-06-26] MEDS: TAMSULOSIN HCL 0.4 MG CAP PO SCH (07:44)
[2021-06-26] MEDS: AMINO ACIDS/PROTEIN HYDROLYS 30 ML LIQUID.PKT PO SCH ×2 (07:44→17:46)
[2021-06-26 09:39] LABS: BASO % 0.6 % (0-2.0); EOS % 10.2 % (0-4.5); HEMATOCRIT 32.8 % (35.4-49); HEMOGLOBIN 10.3 GM/dL (11.7-16.9); LYMPH % 14.4 % (8-40); MCH 25.7 pg (25.7-33.7); MCHC 31.4 g/dl (32.0-35.9); MEAN CELL VOLUME 81.7 fl (80-96); MEAN PLT VOLUME 7.6 fl (7.5-11.1); MONO % 10.6 % (3.8-10.2); NEUT % 64.2 % (42.8-82.8); PLATELET COUNT 238 10^3/uL (134-434); RBC 4.01 M/mm3 (4.00-5.60); RDW 15.1 % (11.9-15.9); WHITE BLOOD COUNT 3.9 K/mm3 (4.0-10.0)
[2021-06-26 10:03] LABS: BLOOD UREA NITROGEN 12.5 mg/dL (7-18)
[2021-06-26] MEDS: MULTIVIT-MINERALS ORAL LIQUID PO SCH (10:38)
[2021-06-26] MEDS: OXYBUTYNIN CHLORIDE 5 MG TABLET PO SCH ×2 (10:39→21:03)
[2021-06-26] MEDS: POLYETHYLENE GLYCOL (HEALTHYLAX) 3350 17 GM PACKET PO SCH (10:39)
[2021-06-26] MEDS: ENOXAPARIN NA (PORCINE) 60 MG/0.6 ML DISP.SYRIN SQ SCH (10:40)
[2021-06-26] MEDS: ASCORBIC ACID 500 MG TABLET (FP) PO SCH ×2 (10:40→21:02)
[2021-06-27] MEDS ORDERED: PIPERACILLIN/TAZOBACTAM 3.375 GM VIAL IVPB ONE ×3 (00:41→17:24)
[2021-06-27] MEDS ORDERED: DEXTROSE 5%-WATER - 50 ML IVPB ONE ×3 (00:41→17:24)
[2021-06-27] MEDS: PIPERACILLIN/TAZOB 3.375 GM 3.375 GM in DEXTROSE 5%-WATER - 50 ML IVPB SCH ×3 (00:59→17:50)
[2021-06-27] MEDS: AMINO ACIDS/PROTEIN HYDROLYS 30 ML LIQUID.PKT PO SCH ×2 (08:55→17:50)
[2021-06-27] MEDS: TAMSULOSIN HCL 0.4 MG CAP PO SCH (08:55)
[2021-06-27 09:46] LABS: BASO % 0.4 % (0-2.0); EOS % 10.3 % (0-4.5); HEMATOCRIT 33.3 % (35.4-49); HEMOGLOBIN 10.4 GM/dL (11.7-16.9); LYMPH % 17.5 % (8-40); MCH 25.4 pg (25.7-33.7); MCHC 31.2 g/dl (32.0-35.9); MEAN CELL VOLUME 81.4 fl (80-96); MEAN PLT VOLUME 7.5 fl (7.5-11.1); NEUT % 60.8 % (42.8-82.8); PLATELET COUNT 234 10^3/uL (134-434); RBC 4.09 M/mm3 (4.00-5.60); RDW 15.3 % (11.9-15.9); WHITE BLOOD COUNT 3.6 K/mm3 (4.0-10.0)
[2021-06-27] MEDS: ASCORBIC ACID 500 MG TABLET (FP) PO SCH ×2 (09:55→21:13)
[2021-06-27] MEDS: OXYBUTYNIN CHLORIDE 5 MG TABLET PO SCH ×2 (09:55→21:13)
[2021-06-27] MEDS: POLYETHYLENE GLYCOL (HEALTHYLAX) 3350 17 GM PACKET PO SCH (09:57)
[2021-06-27] MEDS: MULTIVIT-MINERALS ORAL LIQUID PO SCH (09:57)
[2021-06-27] MEDS ORDERED: ENOXAPARIN NA (PORCINE) 60 MG/0.6 ML DISP.SYRIN SQ SCH (10:00)
[2021-06-27 10:01] LABS: BLOOD UREA NITROGEN 16.7 mg/dL (7-18); CALCIUM 8.7 mg/dL (8.5-10.1)
[2021-06-27 12:11] LABS: EPI CELLS 19 /uL (0-25.1); HYALINE CASTS 5 /uL (0-3.1); PH,URINE 8.5 (5.0-8.0); URINE APPEARANCE CLOUDY; URINE BACTERIA 139 /uL (0-1359); URINE BILIRUBIN NEGATIVE (NEGATIVE); URINE COLOR RED; URINE GLUCOSE (UA) NEGATIVE (NEGATIVE); URINE KETONE NEGATIVE (NEGATIVE); URINE LEUK ESTERASE 3+ (NEGATIVE); URINE NITRITE NEGATIVE (NEGATIVE); URINE PROTEIN TRACE (NEGATIVE); URINE RBC 3825 /uL (0-23.9); URINE UROBILINOGEN 0.2 mg/dL (0.2-1.0); URINE WBC 1701 /uL (0-25.8)
[2021-06-27 17:32] LABS: URINE CRYSTALS 0-2 /hpf
[2021-06-28] MEDS ORDERED: PIPERACILLIN/TAZOBACTAM 3.375 GM VIAL IVPB ONE ×3 (02:12→17:13)
[2021-06-28] MEDS ORDERED: DEXTROSE 5%-WATER - 50 ML IVPB ONE ×3 (02:12→17:13)
[2021-06-28] MEDS: PIPERACILLIN/TAZOB 3.375 GM 3.375 GM in DEXTROSE 5%-WATER - 50 ML IVPB SCH ×3 (02:15→17:46)
[2021-06-28] MEDS: TAMSULOSIN HCL 0.4 MG CAP PO SCH (08:28)
[2021-06-28] MEDS: AMINO ACIDS/PROTEIN HYDROLYS 30 ML LIQUID.PKT PO SCH ×2 (08:28→17:47)
[2021-06-28 09:46] LABS: BASO % 0.5 % (0-2.0); EOS % 10.1 % (0-4.5); HEMATOCRIT 32.8 % (35.4-49); HEMOGLOBIN 10.7 GM/dL (11.7-16.9); LYMPH % 15.6 % (8-40); MCH 26.4 pg (25.7-33.7); MCHC 32.5 g/dl (32.0-35.9); MEAN CELL VOLUME 81.2 fl (80-96); MONO % 13.6 % (3.8-10.2); NEUT % 60.2 % (42.8-82.8); PLATELET COUNT 227 10^3/uL (134-434); RBC 4.04 M/mm3 (4.00-5.60); RDW 15.4 % (11.9-15.9); WHITE BLOOD COUNT 3.6 K/mm3 (4.0-10.0)
[2021-06-28 10:05] LABS: CALCIUM 8.8 mg/dL (8.5-10.1)
[2021-06-28 10:06] LABS: BLOOD UREA NITROGEN 21.7 mg/dL (7-18)
[2021-06-28 10:10] LABS: CREATININE 1.1 mg/dL (0.55-1.3)
[2021-06-28] MEDS: POLYETHYLENE GLYCOL (HEALTHYLAX) 3350 17 GM PACKET PO SCH (10:40)
[2021-06-28] MEDS: MULTIVIT-MINERALS ORAL LIQUID PO SCH (10:40)
[2021-06-28] MEDS: OXYBUTYNIN CHLORIDE 5 MG TABLET PO SCH ×3 (10:40→21:58)
[2021-06-28] MEDS: ASCORBIC ACID 500 MG TABLET (FP) PO SCH ×2 (10:40→21:55)
[2021-06-29] MEDS ORDERED: DEXTROSE 5%-WATER - 50 ML IVPB ONE ×3 (02:11→18:25)
[2021-06-29] MEDS ORDERED: PIPERACILLIN/TAZOBACTAM 3.375 GM VIAL IVPB ONE ×3 (02:11→18:25)
[2021-06-29] MEDS: PIPERACILLIN/TAZOB 3.375 GM 3.375 GM in DEXTROSE 5%-WATER - 50 ML IVPB SCH ×3 (03:00→18:50)
[2021-06-29 08:41] LABS: BASO % 0.4 % (0-2.0); EOS % 9.1 % (0-4.5); HEMATOCRIT 32.9 % (35.4-49); HEMOGLOBIN 10.4 GM/dL (11.7-16.9); MCH 25.8 pg (25.7-33.7); MCHC 31.6 g/dl (32.0-35.9); MEAN CELL VOLUME 81.5 fl (80-96); MEAN PLT VOLUME 7.4 fl (7.5-11.1); NEUT % 63.5 % (42.8-82.8); PLATELET COUNT 234 10^3/uL (134-434); RBC 4.04 M/mm3 (4.00-5.60); RDW 15.1 % (11.9-15.9); WHITE BLOOD COUNT 4.6 K/mm3 (4.0-10.0)
[2021-06-29 08:46] LABS: BLOOD UREA NITROGEN 27.9 mg/dL (7-18); CALCIUM 8.6 mg/dL (8.5-10.1)
[2021-06-29 08:50] LABS: CREATININE 1.1 mg/dL (0.55-1.3)
[2021-06-29] MEDS: MULTIVIT-MINERALS ORAL LIQUID PO SCH (10:09)
[2021-06-29] MEDS: TAMSULOSIN HCL 0.4 MG CAP PO SCH (10:09)
[2021-06-29] MEDS: POLYETHYLENE GLYCOL (HEALTHYLAX) 3350 17 GM PACKET PO SCH (10:09)
[2021-06-29] MEDS: ASCORBIC ACID 500 MG TABLET (FP) PO SCH ×2 (10:09→21:05)
[2021-06-29] MEDS: AMINO ACIDS/PROTEIN HYDROLYS 30 ML LIQUID.PKT PO SCH ×2 (10:09→17:41)
[2021-06-29] MEDS: OXYBUTYNIN CHLORIDE 5 MG TABLET PO SCH ×2 (10:09→21:05)
[2021-06-29] MEDS ORDERED: LIDOCAINE HCL 2% (20ML MULTI-DOSE VIAL) ONE (12:31)
[2021-06-29] MEDS ORDERED: MIDAZOLAM HCL 2 MG/2 ML SINGLE DOSE VIAL ONE ×3 (13:18→14:35)
[2021-06-29] MEDS ORDERED: ONDANSETRON 4 MG/2 ML VIAL IVPUSH PRN ×2 (15:20→16:30)
[2021-06-29] MEDS ORDERED: LACTATED RINGERS SOLUTION 1,000 ML IV SCH (15:30)
[2021-06-29] MEDS: LACTATED RINGERS SOLUTION 1,000 ML IV SCH (18:52)
[2021-06-30] MEDS ORDERED: PIPERACILLIN/TAZOBACTAM 3.375 GM VIAL IVPB ONE ×3 (01:06→17:00)
[2021-06-30] MEDS ORDERED: DEXTROSE 5%-WATER - 50 ML IVPB ONE ×3 (01:07→17:01)
[2021-06-30] MEDS: PIPERACILLIN/TAZOB 3.375 GM 3.375 GM in DEXTROSE 5%-WATER - 50 ML IVPB SCH ×3 (01:26→17:04)
[2021-06-30] MEDS: LACTATED RINGERS SOLUTION 1,000 ML IV SCH ×3 (05:00→20:54)
[2021-06-30] MEDS ORDERED: TAMSULOSIN HCL 0.4 MG CAP PO SCH (08:30)
[2021-06-30 08:46] LABS: BASO % 0.5 % (0-2.0); EOS % 8.8 % (0-4.5); HEMATOCRIT 27.3 % (35.4-49); HEMOGLOBIN 8.5 GM/dL (11.7-16.9); LYMPH % 13.5 % (8-40); MCH 25.5 pg (25.7-33.7); MCHC 31.2 g/dl (32.0-35.9); MEAN CELL VOLUME 81.9 fl (80-96); MEAN PLT VOLUME 7.7 fl (7.5-11.1); MONO % 14.3 % (3.8-10.2); NEUT % 62.9 % (42.8-82.8); PLATELET COUNT 200 10^3/uL (134-434); RBC 3.33 M/mm3 (4.00-5.60); RDW 15.2 % (11.9-15.9); WHITE BLOOD COUNT 4.9 K/mm3 (4.0-10.0)
[2021-06-30 08:48] LABS: CALCIUM 8.6 mg/dL (8.5-10.1)
[2021-06-30] MEDS: AMINO ACIDS/PROTEIN HYDROLYS 30 ML LIQUID.PKT PO SCH ×2 (10:50→16:58)
[2021-06-30] MEDS: MULTIVIT-MINERALS ORAL LIQUID PO SCH (10:51)
[2021-06-30] MEDS: OXYBUTYNIN CHLORIDE 5 MG TABLET PO SCH ×2 (10:52→21:04)
[2021-06-30] MEDS: ASCORBIC ACID 500 MG TABLET (FP) PO SCH ×2 (10:53→21:04)
[2021-06-30] MEDS: POLYETHYLENE GLYCOL (HEALTHYLAX) 3350 17 GM PACKET PO SCH (11:33)
[2021-07-01] MEDS ORDERED: PIPERACILLIN/TAZOBACTAM 3.375 GM VIAL IVPB ONE ×3 (01:15→17:04)
[2021-07-01] MEDS ORDERED: DEXTROSE 5%-WATER - 50 ML IVPB ONE ×3 (01:15→17:04)
[2021-07-01] MEDS: PIPERACILLIN/TAZOB 3.375 GM 3.375 GM in DEXTROSE 5%-WATER - 50 ML IVPB SCH ×3 (01:18→17:09)
[2021-07-01] MEDS: LACTATED RINGERS SOLUTION 1,000 ML IV SCH ×3 (04:11→17:10)
[2021-07-01] MEDS: AMINO ACIDS/PROTEIN HYDROLYS 30 ML LIQUID.PKT PO SCH ×2 (09:03→17:09)
[2021-07-01] MEDS: ASCORBIC ACID 500 MG TABLET (FP) PO SCH ×2 (09:47→21:38)
[2021-07-01] MEDS: OXYBUTYNIN CHLORIDE 5 MG TABLET PO SCH ×2 (09:47→21:38)
[2021-07-01] MEDS: ZINC SULFATE 220 MG CAPSULE (FP) PO SCH (09:47)
[2021-07-01] MEDS: MULTIVIT-MINERALS ORAL LIQUID PO SCH (09:47)
[2021-07-01] MEDS: POLYETHYLENE GLYCOL (HEALTHYLAX) 3350 17 GM PACKET PO SCH (09:48)
[2021-07-01 09:59] LABS: BASO % 0.5 % (0-2.0); EOS % 8.2 % (0-4.5); HEMATOCRIT 25.7 % (35.4-49); HEMOGLOBIN 8.2 GM/dL (11.7-16.9); LYMPH % 15.1 % (8-40); MCH 26.1 pg (25.7-33.7); MCHC 31.7 g/dl (32.0-35.9); MEAN CELL VOLUME 82.4 fl (80-96); MEAN PLT VOLUME 7.7 fl (7.5-11.1); MONO % 12.1 % (3.8-10.2); NEUT % 64.1 % (42.8-82.8); PLATELET COUNT 192 10^3/uL (134-434); RBC 3.12 M/mm3 (4.00-5.60); RDW 15.2 % (11.9-15.9); WHITE BLOOD COUNT 5.1 K/mm3 (4.0-10.0)
[2021-07-01] MEDS ORDERED: ZINC SULFATE 220 MG CAPSULE (FP) PO SCH (10:00)
[2021-07-01 10:27] LABS: CALCIUM 8.3 mg/dL (8.5-10.1)
[2021-07-01 10:28] LABS: BLOOD UREA NITROGEN 19.8 mg/dL (7-18)
[2021-07-02] MEDS ORDERED: DEXTROSE 5%-WATER - 50 ML IVPB ONE ×2 (01:56→09:36)
[2021-07-02] MEDS ORDERED: PIPERACILLIN/TAZOBACTAM 3.375 GM VIAL IVPB ONE ×2 (01:56→09:36)
[2021-07-02] MEDS: PIPERACILLIN/TAZOB 3.375 GM 3.375 GM in DEXTROSE 5%-WATER - 50 ML IVPB SCH ×3 (02:00→18:26)
[2021-07-02] MEDS: LACTATED RINGERS SOLUTION 1,000 ML IV SCH ×3 (05:02→20:03)
[2021-07-02] MEDS: AMINO ACIDS/PROTEIN HYDROLYS 30 ML LIQUID.PKT PO SCH ×2 (08:31→16:54)
[2021-07-02] MEDS: OXYBUTYNIN CHLORIDE 5 MG TABLET PO SCH ×2 (09:46→21:09)
[2021-07-02] MEDS: POLYETHYLENE GLYCOL (HEALTHYLAX) 3350 17 GM PACKET PO SCH (09:46)
[2021-07-02] MEDS: MULTIVIT-MINERALS ORAL LIQUID PO SCH (09:46)
[2021-07-02] MEDS: ASCORBIC ACID 500 MG TABLET (FP) PO SCH ×2 (09:47→21:08)
[2021-07-02] MEDS: ZINC SULFATE 220 MG CAPSULE (FP) PO SCH (09:47)
[2021-07-02 12:08] LABS: BASO % 0.5 % (0-2.0); EOS % 8.7 % (0-4.5); HEMATOCRIT 24.6 % (35.4-49); HEMOGLOBIN 7.9 GM/dL (11.7-16.9); LYMPH % 14.8 % (8-40); MCH 26.2 pg (25.7-33.7); MEAN CELL VOLUME 81.7 fl (80-96); MEAN PLT VOLUME 7.4 fl (7.5-11.1); MONO % 12.2 % (3.8-10.2); NEUT % 63.8 % (42.8-82.8); PLATELET COUNT 193 10^3/uL (134-434); RBC 3.02 M/mm3 (4.00-5.60); RDW 15.6 % (11.9-15.9); WHITE BLOOD COUNT 4.4 K/mm3 (4.0-10.0)
[2021-07-02 12:30] LABS: BLOOD UREA NITROGEN 19.5 mg/dL (7-18); CALCIUM 8.8 mg/dL (8.5-10.1)
[2021-07-02] MEDS ORDERED: ROCURONIUM BROMIDE 50 MG/5 ML SYRINGE ONE (16:32)
[2021-07-02] MEDS ORDERED: MIDAZOLAM HCL 2 MG/2 ML SINGLE DOSE VIAL ONE (16:32)
[2021-07-02] MEDS ORDERED: PROPOFOL 20 ML ONE (16:33)
[2021-07-02] MEDS ORDERED: ceFAZolin SODIUM 1 GM VIAL IVPB ONE (16:51)
[2021-07-02] MEDS ORDERED: LACTATED RINGERS SOLUTION 1,000 ML IV SCH (18:00)
[2021-07-03] MEDS ORDERED: DEXTROSE 5%-WATER - 50 ML IVPB ONE ×3 (00:58→17:15)
[2021-07-03] MEDS ORDERED: PIPERACILLIN/TAZOBACTAM 3.375 GM VIAL IVPB ONE ×3 (00:58→17:15)
[2021-07-03] MEDS: LACTATED RINGERS SOLUTION 1,000 ML IV SCH ×3 (01:04→21:08)
[2021-07-03] MEDS: PIPERACILLIN/TAZOB 3.375 GM 3.375 GM in DEXTROSE 5%-WATER - 50 ML IVPB SCH ×3 (01:04→17:27)
[2021-07-03] MEDS: ACETAMINOPHEN 325 MG TABLET (FP) PO PRN ×2 (02:29→22:24)
[2021-07-03] MEDS: AMINO ACIDS/PROTEIN HYDROLYS 30 ML LIQUID.PKT PO SCH ×2 (08:52→17:27)
[2021-07-03] MEDS: TAMSULOSIN HCL 0.4 MG CAP PO SCH (08:52)
[2021-07-03] MEDS: ZINC SULFATE 220 MG CAPSULE (FP) PO SCH (09:46)
[2021-07-03] MEDS: POLYETHYLENE GLYCOL (HEALTHYLAX) 3350 17 GM PACKET PO SCH (09:46)
[2021-07-03] MEDS: ASCORBIC ACID 500 MG TABLET (FP) PO SCH ×2 (09:46→21:08)
[2021-07-03] MEDS: OXYBUTYNIN CHLORIDE 5 MG TABLET PO SCH ×2 (09:49→21:09)
[2021-07-03] MEDS: MULTIVIT-MINERALS ORAL LIQUID PO SCH (09:49)
[2021-07-03 10:10] LABS: BASO % 0.3 % (0-2.0); EOS % 5.4 % (0-4.5); HEMATOCRIT 24.8 % (35.4-49); HEMOGLOBIN 7.8 GM/dL (11.7-16.9); LYMPH % 10.5 % (8-40); MCH 25.9 pg (25.7-33.7); MCHC 31.5 g/dl (32.0-35.9); MEAN CELL VOLUME 82.2 fl (80-96); MEAN PLT VOLUME 7.8 fl (7.5-11.1); MONO % 11.3 % (3.8-10.2); NEUT % 72.5 % (42.8-82.8); PLATELET COUNT 203 10^3/uL (134-434); RBC 3.02 M/mm3 (4.00-5.60); RDW 15.6 % (11.9-15.9); WHITE BLOOD COUNT 6.1 K/mm3 (4.0-10.0)
[2021-07-03 11:11] LABS: CALCIUM 8.8 mg/dL (8.5-10.1)
[2021-07-03 11:12] LABS: BLOOD UREA NITROGEN 19.7 mg/dL (7-18)
[2021-07-03 11:15] LABS: CREATININE 1.2 mg/dL (0.55-1.3); PHOSPHOROUS 4.1 mg/dL (2.5-4.9)
[2021-07-03 11:25] LABS: MAGNESIUM 2.1 mg/dL (1.8-2.4)
[2021-07-04] MEDS ORDERED: PIPERACILLIN/TAZOBACTAM 3.375 GM VIAL IVPB ONE ×3 (00:39→16:54)
[2021-07-04] MEDS ORDERED: DEXTROSE 5%-WATER - 50 ML IVPB ONE ×3 (00:39→16:54)
[2021-07-04] MEDS: PIPERACILLIN/TAZOB 3.375 GM 3.375 GM in DEXTROSE 5%-WATER - 50 ML IVPB SCH ×3 (01:02→17:06)
[2021-07-04] MEDS: TAMSULOSIN HCL 0.4 MG CAP PO SCH (09:14)
[2021-07-04] MEDS: MULTIVIT-MINERALS ORAL LIQUID PO SCH (09:14)
[2021-07-04] MEDS: ASCORBIC ACID 500 MG TABLET (FP) PO SCH ×2 (09:14→21:51)
[2021-07-04] MEDS: ZINC SULFATE 220 MG CAPSULE (FP) PO SCH (09:14)
[2021-07-04] MEDS: OXYBUTYNIN CHLORIDE 5 MG TABLET PO SCH ×2 (09:14→21:51)
[2021-07-04] MEDS: POLYETHYLENE GLYCOL (HEALTHYLAX) 3350 17 GM PACKET PO SCH (09:15)
[2021-07-04] MEDS: AMINO ACIDS/PROTEIN HYDROLYS 30 ML LIQUID.PKT PO SCH ×2 (09:15→17:05)
[2021-07-04 11:42] LABS: BASO % 0.4 % (0-2.0); HEMATOCRIT 24.5 % (35.4-49); HEMOGLOBIN 7.8 GM/dL (11.7-16.9); LYMPH % 12.5 % (8-40); MCH 26.1 pg (25.7-33.7); MCHC 31.9 g/dl (32.0-35.9); MEAN CELL VOLUME 81.6 fl (80-96); MEAN PLT VOLUME 7.7 fl (7.5-11.1); MONO % 14.5 % (3.8-10.2); NEUT % 63.6 % (42.8-82.8); PLATELET COUNT 202 10^3/uL (134-434); RDW 15.8 % (11.9-15.9); WHITE BLOOD COUNT 4.3 K/mm3 (4.0-10.0)
[2021-07-04 12:03] LABS: BLOOD UREA NITROGEN 17.1 mg/dL (7-18)
[2021-07-04 12:06] LABS: PHOSPHOROUS 3.6 mg/dL (2.5-4.9)
[2021-07-04] MEDS: LACTATED RINGERS SOLUTION 1,000 ML IV SCH (20:22)
[2021-07-05] MEDS ORDERED: PIPERACILLIN/TAZOBACTAM 3.375 GM VIAL IVPB ONE ×3 (00:52→17:11)
[2021-07-05] MEDS ORDERED: DEXTROSE 5%-WATER - 50 ML IVPB ONE ×3 (00:53→17:11)
[2021-07-05] MEDS: PIPERACILLIN/TAZOB 3.375 GM 3.375 GM in DEXTROSE 5%-WATER - 50 ML IVPB SCH ×3 (01:02→17:22)
[2021-07-05] MEDS: LACTATED RINGERS SOLUTION 1,000 ML IV SCH ×2 (09:06→15:21)
[2021-07-05] MEDS: AMINO ACIDS/PROTEIN HYDROLYS 30 ML LIQUID.PKT PO SCH ×2 (09:08→17:22)
[2021-07-05] MEDS: ZINC SULFATE 220 MG CAPSULE (FP) PO SCH (09:14)
[2021-07-05] MEDS: MULTIVIT-MINERALS ORAL LIQUID PO SCH (09:15)
[2021-07-05] MEDS: ASCORBIC ACID 500 MG TABLET (FP) PO SCH ×2 (09:15→21:05)
[2021-07-05] MEDS: OXYBUTYNIN CHLORIDE 5 MG TABLET PO SCH ×2 (09:15→21:05)
[2021-07-05] MEDS: TAMSULOSIN HCL 0.4 MG CAP PO SCH (09:15)
[2021-07-05] MEDS: POLYETHYLENE GLYCOL (HEALTHYLAX) 3350 17 GM PACKET PO SCH (09:15)
[2021-07-05 09:34] LABS: BASO % 0.4 % (0-2.0); EOS % 9.3 % (0-4.5); HEMATOCRIT 23.4 % (35.4-49); HEMOGLOBIN 7.6 GM/dL (11.7-16.9); MCH 26.3 pg (25.7-33.7); MCHC 32.4 g/dl (32.0-35.9); MEAN CELL VOLUME 81.3 fl (80-96); MEAN PLT VOLUME 7.5 fl (7.5-11.1); MONO % 13.4 % (3.8-10.2); NEUT % 62.9 % (42.8-82.8); PLATELET COUNT 194 10^3/uL (134-434); RBC 2.88 M/mm3 (4.00-5.60); RDW 15.8 % (11.9-15.9); WHITE BLOOD COUNT 4.7 K/mm3 (4.0-10.0)
[2021-07-05 10:00] LABS: CALCIUM 8.6 mg/dL (8.5-10.1)
[2021-07-05 10:01] LABS: BLOOD UREA NITROGEN 20.8 mg/dL (7-18); MAGNESIUM 1.9 mg/dL (1.8-2.4)
[2021-07-05 10:04] LABS: CREATININE 1.1 mg/dL (0.55-1.3); PHOSPHOROUS 3.9 mg/dL (2.5-4.9)
[2021-07-06] MEDS ORDERED: DEXTROSE 5%-WATER - 50 ML IVPB ONE ×3 (00:42→17:02)
[2021-07-06] MEDS ORDERED: PIPERACILLIN/TAZOBACTAM 3.375 GM VIAL IVPB ONE ×3 (00:42→17:02)
[2021-07-06] MEDS: PIPERACILLIN/TAZOB 3.375 GM 3.375 GM in DEXTROSE 5%-WATER - 50 ML IVPB SCH ×3 (01:02→17:43)
[2021-07-06] MEDS: AMINO ACIDS/PROTEIN HYDROLYS 30 ML LIQUID.PKT PO SCH ×2 (08:57→17:00)
[2021-07-06] MEDS: TAMSULOSIN HCL 0.4 MG CAP PO SCH (09:04)
[2021-07-06] MEDS: MULTIVIT-MINERALS ORAL LIQUID PO SCH (09:47)
[2021-07-06] MEDS: OXYBUTYNIN CHLORIDE 5 MG TABLET PO SCH ×2 (09:49→21:28)
[2021-07-06] MEDS: POLYETHYLENE GLYCOL (HEALTHYLAX) 3350 17 GM PACKET PO SCH (09:50)
[2021-07-06] MEDS: ASCORBIC ACID 500 MG TABLET (FP) PO SCH ×2 (09:50→21:28)
[2021-07-06] MEDS: ZINC SULFATE 220 MG CAPSULE (FP) PO SCH (09:50)
[2021-07-06] MEDS ORDERED: APIXABAN 5 MG TABLET PO SCH (10:00)
[2021-07-06 10:17] LABS: CALCIUM 8.8 mg/dL (8.5-10.1)
[2021-07-06 10:18] LABS: BLOOD UREA NITROGEN 20.6 mg/dL (7-18)
[2021-07-06 10:21] LABS: CREATININE 0.9 mg/dL (0.55-1.3)
[2021-07-06 11:16] LABS: BASO % 0.4 % (0-2.0); EOS % 9.5 % (0-4.5); HEMATOCRIT 24.7 % (35.4-49); LYMPH % 13.7 % (8-40); MCH 26.3 pg (25.7-33.7); MCHC 32.4 g/dl (32.0-35.9); MEAN CELL VOLUME 81.3 fl (80-96); MEAN PLT VOLUME 7.9 fl (7.5-11.1); MONO % 11.6 % (3.8-10.2); NEUT % 64.8 % (42.8-82.8); PLATELET COUNT 216 10^3/uL (134-434); RBC 3.04 M/mm3 (4.00-5.60); RDW 15.7 % (11.9-15.9); WHITE BLOOD COUNT 4.8 K/mm3 (4.0-10.0)
[2021-07-06] MEDS: LACTATED RINGERS SOLUTION 1,000 ML IV SCH ×2 (12:59→17:46)
[2021-07-07] MEDS ORDERED: PIPERACILLIN/TAZOBACTAM 3.375 GM VIAL IVPB ONE ×3 (01:17→17:03)
[2021-07-07] MEDS ORDERED: DEXTROSE 5%-WATER - 50 ML IVPB ONE ×3 (01:18→17:04)
[2021-07-07] MEDS: PIPERACILLIN/TAZOB 3.375 GM 3.375 GM in DEXTROSE 5%-WATER - 50 ML IVPB SCH ×3 (01:21→17:59)
[2021-07-07] MEDS: TAMSULOSIN HCL 0.4 MG CAP PO SCH (08:04)
[2021-07-07] MEDS: AMINO ACIDS/PROTEIN HYDROLYS 30 ML LIQUID.PKT PO SCH ×2 (08:04→17:59)
[2021-07-07 09:56] LABS: BASO % 0.5 % (0-2.0); EOS % 9.3 % (0-4.5); HEMATOCRIT 25.2 % (35.4-49); HEMOGLOBIN 8.1 GM/dL (11.7-16.9); LYMPH % 13.9 % (8-40); MCH 26.1 pg (25.7-33.7); MCHC 32.1 g/dl (32.0-35.9); MEAN CELL VOLUME 81.3 fl (80-96); MEAN PLT VOLUME 7.6 fl (7.5-11.1); MONO % 11.8 % (3.8-10.2); NEUT % 64.5 % (42.8-82.8); PLATELET COUNT 231 10^3/uL (134-434); RDW 15.9 % (11.9-15.9); WHITE BLOOD COUNT 5.2 K/mm3 (4.0-10.0)
[2021-07-07 10:02] LABS: INR 1.14 (0.83-1.09); PROTHROMBIN TIME (PATIENT) 13.1 SEC (9.7-13.0)
[2021-07-07 10:08] LABS: SARS-CoV-2 NAA Not Detected (Not Detected)
[2021-07-07 10:10] LABS: CALCIUM 9.1 mg/dL (8.5-10.1)
[2021-07-07 10:11] LABS: BLOOD UREA NITROGEN 22.4 mg/dL (7-18)
[2021-07-07 10:14] LABS: CREATININE 1.1 mg/dL (0.55-1.3)
[2021-07-07] MEDS: POLYETHYLENE GLYCOL (HEALTHYLAX) 3350 17 GM PACKET PO SCH (10:31)
[2021-07-07] MEDS: OXYBUTYNIN CHLORIDE 5 MG TABLET PO SCH ×2 (10:32→21:28)
[2021-07-07] MEDS: ZINC SULFATE 220 MG CAPSULE (FP) PO SCH (10:33)
[2021-07-07] MEDS: ASCORBIC ACID 500 MG TABLET (FP) PO SCH ×2 (10:33→21:28)
[2021-07-07] MEDS: MULTIVIT-MINERALS ORAL LIQUID PO SCH ×2 (10:56→11:34)
[2021-07-07] MEDS: LACTATED RINGERS SOLUTION 1,000 ML IV SCH (17:02)
[2021-07-08] MEDS: PIPERACILLIN/TAZOB 3.375 GM 3.375 GM in DEXTROSE 5%-WATER - 50 ML IVPB SCH ×3 (02:09→17:31)
[2021-07-08] MEDS: LACTATED RINGERS SOLUTION 1,000 ML IV SCH (06:41)
[2021-07-08 09:20] LABS: BASO % 0.5 % (0-2.0); EOS % 9.1 % (0-4.5); HEMATOCRIT 25.7 % (35.4-49); HEMOGLOBIN 8.2 GM/dL (11.7-16.9); LYMPH % 14.3 % (8-40); MCH 26.2 pg (25.7-33.7); MCHC 31.8 g/dl (32.0-35.9); MEAN CELL VOLUME 82.2 fl (80-96); MEAN PLT VOLUME 7.5 fl (7.5-11.1); MONO % 9.4 % (3.8-10.2); NEUT % 66.7 % (42.8-82.8); PLATELET COUNT 215 10^3/uL (134-434); RBC 3.12 M/mm3 (4.00-5.60); RDW 15.9 % (11.9-15.9); WHITE BLOOD COUNT 4.9 K/mm3 (4.0-10.0)
[2021-07-08 09:47] LABS: BLOOD UREA NITROGEN 23.5 mg/dL (7-18)
[2021-07-08 09:50] LABS: CREATININE 1.1 mg/dL (0.55-1.3)
[2021-07-08] MEDS: TAMSULOSIN HCL 0.4 MG CAP PO SCH (09:56)
[2021-07-08] MEDS: AMINO ACIDS/PROTEIN HYDROLYS 30 ML LIQUID.PKT PO SCH ×2 (09:56→17:31)
[2021-07-08] MEDS: POLYETHYLENE GLYCOL (HEALTHYLAX) 3350 17 GM PACKET PO SCH (09:57)
[2021-07-08] MEDS: ASCORBIC ACID 500 MG TABLET (FP) PO SCH ×2 (09:57→21:27)
[2021-07-08] MEDS: OXYBUTYNIN CHLORIDE 5 MG TABLET PO SCH ×2 (09:57→21:27)
[2021-07-08] MEDS: MULTIVIT-MINERALS ORAL LIQUID PO SCH (09:57)
[2021-07-08] MEDS: ZINC SULFATE 220 MG CAPSULE (FP) PO SCH (09:57)
[2021-07-08] MEDS ORDERED: PIPERACILLIN/TAZOBACTAM 3.375 GM VIAL IVPB ONE (17:29)
[2021-07-08] MEDS ORDERED: DEXTROSE 5%-WATER - 50 ML IVPB ONE (17:29)
[2021-07-09] MEDS ORDERED: PIPERACILLIN/TAZOBACTAM 3.375 GM VIAL IVPB ONE ×4 (02:07→23:19)
[2021-07-09] MEDS ORDERED: DEXTROSE 5%-WATER - 50 ML IVPB ONE ×4 (02:08→23:19)
[2021-07-09] MEDS: PIPERACILLIN/TAZOB 3.375 GM 3.375 GM in DEXTROSE 5%-WATER - 50 ML IVPB SCH ×3 (02:18→17:13)
[2021-07-09] MEDS: TAMSULOSIN HCL 0.4 MG CAP PO SCH (07:54)
[2021-07-09] MEDS: AMINO ACIDS/PROTEIN HYDROLYS 30 ML LIQUID.PKT PO SCH ×2 (07:54→17:13)
[2021-07-09] MEDS: POLYETHYLENE GLYCOL (HEALTHYLAX) 3350 17 GM PACKET PO SCH (10:03)
[2021-07-09] MEDS: OXYBUTYNIN CHLORIDE 5 MG TABLET PO SCH ×2 (10:03→21:21)
[2021-07-09] MEDS: ASCORBIC ACID 500 MG TABLET (FP) PO SCH ×2 (10:03→21:21)
[2021-07-09] MEDS: ZINC SULFATE 220 MG CAPSULE (FP) PO SCH (10:03)
[2021-07-09] MEDS: MULTIVIT-MINERALS ORAL LIQUID PO SCH (10:03)
[2021-07-09 10:04] LABS: BASO % 0.5 % (0-2.0); EOS % 9.7 % (0-4.5); HEMATOCRIT 26.5 % (35.4-49); HEMOGLOBIN 8.3 GM/dL (11.7-16.9); LYMPH % 13.8 % (8-40); MCH 26.1 pg (25.7-33.7); MCHC 31.4 g/dl (32.0-35.9); MEAN CELL VOLUME 83.1 fl (80-96); MEAN PLT VOLUME 7.9 fl (7.5-11.1); MONO % 9.8 % (3.8-10.2); NEUT % 66.2 % (42.8-82.8); PLATELET COUNT 227 10^3/uL (134-434); RBC 3.18 M/mm3 (4.00-5.60); RDW 15.9 % (11.9-15.9); WHITE BLOOD COUNT 4.9 K/mm3 (4.0-10.0)
[2021-07-09 10:46] LABS: CALCIUM 8.7 mg/dL (8.5-10.1)
[2021-07-09 10:47] LABS: BLOOD UREA NITROGEN 22.7 mg/dL (7-18)
[2021-07-09 10:49] LABS: CREATININE 1.1 mg/dL (0.55-1.3)
[2021-07-10] MEDS: PIPERACILLIN/TAZOB 3.375 GM 3.375 GM in DEXTROSE 5%-WATER - 50 ML IVPB SCH ×2 (01:00→10:10)
[2021-07-10 05:19] VITALS: BP 94/57; PULSE 79; TEMP 97.8
[2021-07-10] MEDS: AMINO ACIDS/PROTEIN HYDROLYS 30 ML LIQUID.PKT PO SCH (08:24)
[2021-07-10] MEDS: TAMSULOSIN HCL 0.4 MG CAP PO SCH (08:24)
[2021-07-10] MEDS ORDERED: DEXTROSE 5%-WATER - 50 ML IVPB ONE (09:45)
[2021-07-10] MEDS ORDERED: PIPERACILLIN/TAZOBACTAM 3.375 GM VIAL IVPB ONE (09:45)
[2021-07-10] MEDS: ASCORBIC ACID 500 MG TABLET (FP) PO SCH (10:10)
[2021-07-10] MEDS: ZINC SULFATE 220 MG CAPSULE (FP) PO SCH (10:10)
[2021-07-10] MEDS: POLYETHYLENE GLYCOL (HEALTHYLAX) 3350 17 GM PACKET PO SCH (10:11)
[2021-07-10] MEDS: MULTIVIT-MINERALS ORAL LIQUID PO SCH (10:13)
[2021-07-10] MEDS: OXYBUTYNIN CHLORIDE 5 MG TABLET PO SCH (10:13)
[2021-07-13 11:07] LABS: SIZE 8X6
[2021-07-13 11:08] LABS: CA OXALATE MONOHYDR. 60%; WEIGHT 714 MG
== END 2021-07-10 15:03 | disposition home or self-care (01) | DRG 463 ==
LOC: JER 13:25 → JERBED 14:33 → J6S 22:52
PROVIDERS: ADMIT Internal Medicine; ATTEND Internal Medicine
PROC: 0T9B70Z Drainage of Bladder with Drainage Device, Via Natural or Artificial Opening (ICD-10-PCS; 2021-06-26)
PROC: 0QBM0ZZ Excision of Left Tarsal, Open Approach (ICD-10-PCS; 2021-06-29)
PROC: 0HRNXK3 Replacement of Left Foot Skin with Nonautologous Tissue Substitute, Full Thickness, External Approach (ICD-10-PCS; principal; 2021-06-29 13:00)
PROC: 0TCB8ZZ Extirpation of Matter from Bladder, Via Natural or Artificial Opening Endoscopic (ICD-10-PCS; 2021-07-02)
PROC: 02HV33Z Insertion of Infusion Device into Superior Vena Cava, Percutaneous Approach (ICD-10-PCS; 2021-07-08)
PROC: B548ZZA Ultrasonography of Superior Vena Cava, Guidance (ICD-10-PCS; 2021-07-08)
DX: M86.8X7 Other osteomyelitis, ankle and foot (principal); L89.624 Pressure ulcer of left heel, stage 4; G82.20 Paraplegia, unspecified; N39.0 Urinary tract infection, site not specified; D64.9 Anemia, unspecified; N40.0 Benign prostatic hyperplasia without lower urinary tract symptoms; Z86.718 Personal history of other venous thrombosis and embolism; N21.0 Calculus in bladder; R31.0 Gross hematuria; I95.9 Hypotension, unspecified
CPT/HCPCS: 36415; 36569; 73630-TC-LT; 77001-TC-FY; 80048; 80053; 81003; 82360; 82962; 83735; 84100; 85025; 85610; 85730; 86850; 86900; 86901; 87040; 87070; 87075; 87086; 87186; 87205; 88300-TC; 88304-TC; 88305-TC; 88311-TC; 93005; 93010; 94760; 97161-GP; 99285-25; C1751; C9803; G0463-25; U0003; U0005

== ENCOUNTER 2023-01-09 16:16 | Inpatient (IN) | payer OTHER ==
[2023-01-09 16:48] VITALS: BMI 24.3
[2023-01-09] MEDS ORDERED: FAMOTIDINE 20 MG/50 ML IVPB 20 MG/50 ML MG IVPB ONE ×2 (17:40→17:53)
[2023-01-09] MEDS ORDERED: ACETAMINOPHEN 1000 MG/100 ML BAG IVPB ONE (17:40)
[2023-01-09] MEDS ORDERED: ACETAMINOPHEN INJECTION 100 ML IVPB ONE (17:53)
[2023-01-09 18:17] LABS: BASO % 0.6 % (0-2.0); HEMATOCRIT 39.7 % (35.4-49); HEMOGLOBIN 12.7 GM/dL (11.7-16.9); LYMPH % 18.3 % (8-40); MCH 27.5 pg (25.7-33.7); MEAN CELL VOLUME 85.9 fl (80-96); MEAN PLT VOLUME 7.3 fl (7.5-11.1); MONO % 11.7 % (3.8-10.2); NEUT % 59.4 % (42.8-82.8); PLATELET COUNT 302 10^3/uL (134-434); RBC 4.62 M/mm3 (4.00-5.60); WHITE BLOOD COUNT 5.3 K/mm3 (4.0-10.0)
[2023-01-09 18:46] LABS: POTASSIUM 4.2 mmol/L (3.5-5.1)
[2023-01-09 18:48] LABS: ALBUMIN 2.8 g/dl (3.4-5.0); CALCIUM 9.2 mg/dL (8.5-10.1)
[2023-01-09 18:49] LABS: BLOOD UREA NITROGEN 12.3 mg/dL (7-18)
[2023-01-09 18:51] LABS: CREATININE 1.5 mg/dL (0.55-1.3)
[2023-01-09 18:53] LABS: TOT PROT 9.7 g/dl (6.4-8.2)
[2023-01-09] MEDS ORDERED: LACTATED RINGERS SOLUTION 1000 ML INFUS.BAG IV ONE (19:37)
[2023-01-09] MEDS ORDERED: morphine CARPU-JECT 2 MG/1 ML DISP.SYRIN IVPUSH ONE ×2 (21:36→22:44)
[2023-01-09] MEDS ORDERED: LIDOCAINE HCL 2% JELLY 11 ML TP ONE (21:40)
[2023-01-09 23:24] LABS: EPI CELLS >36 /uL (0-25.1); HYALINE CASTS 1 /uL (0-3.1); PH,URINE 6.5 (5.0-8.0); URINE APPEARANCE TURBID; URINE BACTERIA 5405 /uL (0-1359); URINE BILIRUBIN NEGATIVE (NEGATIVE); URINE COLOR YELLOW; URINE GLUCOSE (UA) NEGATIVE (NEGATIVE); URINE KETONE NEGATIVE (NEGATIVE); URINE LEUK ESTERASE 3+ (NEGATIVE); URINE NITRITE POSITIVE (NEGATIVE); URINE PROTEIN 2+ (NEGATIVE); URINE UROBILINOGEN 0.2 mg/dL (0.2-1.0); URINE WBC 8106 /uL (0-25.8)
[2023-01-09] MEDS ORDERED: CEFTRIAXONE 1,000 MG in DEXTROSE 5%-WATER - 50 ML IVPB ONE (23:28)
[2023-01-09 23:44] LABS: URINE RBC 393.6 /uL (0-23.9)
[2023-01-09 23:45] LABS: YEAST NONE SEEN (NEGATIVE)
[2023-01-10] MEDS ORDERED: CEFTRIAXONE 1 GM/50 ML BAG ONE ×2 (00:26→10:42)
[2023-01-10] MEDS ORDERED: HEPARIN NA (PORCINE) 5,000 UNITS/ML 1ML VIAL ONE (05:07)
[2023-01-10] MEDS ORDERED: HEPARIN NA (PORCINE) 5,000 UNITS/ML 1ML VIAL SQ SCH (06:00)
[2023-01-10] MEDS ORDERED: POLYETHYLENE GLYCOL (HEALTHYLAX) 3350 17 GM PACKET ONE (06:56)
[2023-01-10] MEDS: POLYETHYLENE GLYCOL (HEALTHYLAX) 3350 17 GM PACKET PO SCH ×2 (06:57→21:57)
[2023-01-10 07:35] LABS: BASO % 0.4 % (0-2.0); EOS % 6.7 % (0-4.5); HEMATOCRIT 34.6 % (35.4-49); HEMOGLOBIN 10.9 GM/dL (11.7-16.9); MCH 26.8 pg (25.7-33.7); MCHC 31.4 g/dl (32.0-35.9); MEAN CELL VOLUME 85.4 fl (80-96); MEAN PLT VOLUME 7.7 fl (7.5-11.1); MONO % 13.4 % (3.8-10.2); NEUT % 68.5 % (42.8-82.8); PLATELET COUNT 260 10^3/uL (134-434); RBC 4.05 M/mm3 (4.00-5.60); RDW 13.9 % (11.9-15.9); WHITE BLOOD COUNT 7.2 K/mm3 (4.0-10.0)
[2023-01-10 08:21] LABS: POTASSIUM 4.4 mmol/L (3.5-5.1)
[2023-01-10 08:48] LABS: CALCIUM 8.8 mg/dL (8.5-10.1)
[2023-01-10 08:49] LABS: ALBUMIN 2.3 g/dl (3.4-5.0); MAGNESIUM 2.1 mg/dL (1.8-2.4)
[2023-01-10 08:52] LABS: CREATININE 1.5 mg/dL (0.55-1.3); PHOSPHOROUS 4.9 mg/dL (2.5-4.9)
[2023-01-10 08:53] LABS: BILIRUBIN,TOTAL 0.9 mg/dL (0.2-1)
[2023-01-10] MEDS ORDERED: CEFTRIAXONE 1 GM in DEXTROSE 5%-WATER - 50 ML IVPB SCH (10:00)
[2023-01-10] MEDS ORDERED: PIPERACILLIN/TAZOB 3.375 GM 3.375 GM in DEXTROSE 5%-WATER - 50 ML IVPB ONE (14:40)
[2023-01-10] MEDS ORDERED: ACETAMINOPHEN INJECTION 100 ML IVPB ONE (15:53)
[2023-01-10] MEDS ORDERED: PIPERACILLIN/TAZOB 3.375 GM 3.375 GM/50 ML BAG IVPB ONE ×2 (16:02→16:06)
[2023-01-10] MEDS ORDERED: ACETAMINOPHEN 1000 MG/100 ML BAG IVPB ONE (17:57)
[2023-01-11] MEDS ORDERED: PIPERACILLIN/TAZOB 3.375 GM 3.375 GM in DEXTROSE 5%-WATER - 50 ML IVPB ONE (08:49)
[2023-01-11] MEDS: POLYETHYLENE GLYCOL (HEALTHYLAX) 3350 17 GM PACKET PO SCH ×2 (09:23→21:57)
[2023-01-11] MEDS ORDERED: COLLAGENASE CLOSTRIDIUM HIST. 30 GRAMS TUBE TP SCH (11:00)
[2023-01-11] MEDS: MINERAL OIL/PET HY-PHL TOPICAL OINTMENT 454 GM JAR TP SCH (14:44)
[2023-01-11] MEDS: DOXYCYCLINE HYCLATE 100 MG CAPSULE PO SCH (17:36)
[2023-01-11] MEDS: OXYBUTYNIN CHLORIDE 5 MG TABLET PO SCH (21:57)
[2023-01-11] MEDS ORDERED: HEPARIN NA (PORCINE) 5,000 UNITS/ML 1ML VIAL SQ SCH (22:00)
[2023-01-12 09:22] LABS: BASO % 0.4 % (0-2.0); EOS % 11.4 % (0-4.5); HEMATOCRIT 33.3 % (35.4-49); HEMOGLOBIN 10.7 GM/dL (11.7-16.9); LYMPH % 7.5 % (8-40); MCH 27.5 pg (25.7-33.7); MCHC 32.3 g/dl (32.0-35.9); MEAN CELL VOLUME 85.4 fl (80-96); MEAN PLT VOLUME 7.5 fl (7.5-11.1); NEUT % 67.7 % (42.8-82.8); PLATELET COUNT 219 10^3/uL (134-434); WHITE BLOOD COUNT 6.2 K/mm3 (4.0-10.0)
[2023-01-12] MEDS: POLYETHYLENE GLYCOL (HEALTHYLAX) 3350 17 GM PACKET PO SCH ×2 (09:23→21:49)
[2023-01-12] MEDS: DOXYCYCLINE HYCLATE 100 MG CAPSULE PO SCH ×2 (09:23→17:44)
[2023-01-12] MEDS: AMINO ACIDS/PROTEIN HYDROLYS 30 ML LIQUID.PKT PO SCH (09:23)
[2023-01-12] MEDS: OXYBUTYNIN CHLORIDE 5 MG TABLET PO SCH ×2 (09:23→21:49)
[2023-01-12 09:42] LABS: POTASSIUM 4.1 mmol/L (3.5-5.1)
[2023-01-12 09:50] LABS: BLOOD UREA NITROGEN 19.4 mg/dL (7-18); CREATININE 1.4 mg/dL (0.55-1.3)
[2023-01-12 09:51] LABS: ALBUMIN 2.2 g/dl (3.4-5.0); CALCIUM 8.3 mg/dL (8.5-10.1)
[2023-01-12 09:52] LABS: BILIRUBIN,TOTAL 0.4 mg/dL (0.2-1); TOT PROT 7.5 g/dl (6.4-8.2)
[2023-01-12] MEDS ORDERED: ACETAMINOPHEN 325 MG TABLET (FP) PO PRN (11:01)
[2023-01-12] MEDS ORDERED: ACETAMINOPHEN 1000 MG/100 ML BAG IVPB PRN (11:34)
[2023-01-12] MEDS: MINERAL OIL/PET HY-PHL TOPICAL OINTMENT 454 GM JAR TP SCH (11:50)
[2023-01-12] MEDS: COLLAGENASE CLOSTRIDIUM HIST. 30 GRAMS TUBE TP SCH (16:07)
[2023-01-13] MEDS: AMINO ACIDS/PROTEIN HYDROLYS 30 ML LIQUID.PKT PO SCH (10:54)
[2023-01-13] MEDS: POLYETHYLENE GLYCOL (HEALTHYLAX) 3350 17 GM PACKET PO SCH (10:54)
[2023-01-13] MEDS: DOXYCYCLINE HYCLATE 100 MG CAPSULE PO SCH ×2 (10:54→17:42)
[2023-01-13] MEDS: OXYBUTYNIN CHLORIDE 5 MG TABLET PO SCH (10:54)
[2023-01-13] MEDS: COLLAGENASE CLOSTRIDIUM HIST. 30 GRAMS TUBE TP SCH (10:55)
[2023-01-13] MEDS: MINERAL OIL/PET HY-PHL TOPICAL OINTMENT 454 GM JAR TP SCH (10:56)
[2023-01-13 12:35] LABS: BASO % 0.3 % (0-2.0); EOS % 10.4 % (0-4.5); HEMATOCRIT 34.4 % (35.4-49); HEMOGLOBIN 11.2 GM/dL (11.7-16.9); LYMPH % 17.4 % (8-40); MCH 28.1 pg (25.7-33.7); MCHC 32.6 g/dl (32.0-35.9); MEAN CELL VOLUME 86.3 fl (80-96); MEAN PLT VOLUME 7.6 fl (7.5-11.1); MONO % 10.5 % (3.8-10.2); NEUT % 61.4 % (42.8-82.8); PLATELET COUNT 233 10^3/uL (134-434); RBC 3.99 M/mm3 (4.00-5.60); RDW 14.1 % (11.9-15.9)
[2023-01-13 12:58] LABS: POTASSIUM 4.1 mmol/L (3.5-5.1)
[2023-01-13 13:02] LABS: ALBUMIN 2.4 g/dl (3.4-5.0); BLOOD UREA NITROGEN 20.4 mg/dL (7-18); MAGNESIUM 1.9 mg/dL (1.8-2.4)
[2023-01-13 13:04] LABS: ANISOCYTOSIS 0; HELMET CELLS 0; HOWELL-JOLLY BODIES 0; MACROCYTOSIS 0; OVALOCYTE 0; ROULEAU 0; SICKELED CELLS 0; TARGET CELLS 0; TEAR DROP CELLS 0; TOXIC GRANULATION 0
[2023-01-13 13:06] LABS: CREATININE 1.2 mg/dL (0.55-1.3)
[2023-01-13 13:07] LABS: TOT PROT 8.1 g/dl (6.4-8.2)
[2023-01-13 13:08] LABS: BILIRUBIN,TOTAL 0.5 mg/dL (0.2-1)
[2023-01-13 14:44] VITALS: BP 84/60; PULSE 90; RESP 16; TEMP 97.7
== END 2023-01-13 18:00 | disposition home health service (06) | DRG 699 ==
LOC: JER 16:16 → JERBED 23:49 → J8W 01-10 21:11 → OBSVTOIN 01-11 09:53
PROVIDERS: ADMIT Internal Medicine; ATTEND Nurse Practitioner Acute Care
PROC: 0T2BX0Z Change Drainage Device in Bladder, External Approach (ICD-10-PCS; principal; 2023-01-10)
DX: T83.511A Infection and inflammatory reaction due to indwelling urethral catheter, initial encounter (principal); G82.20 Paraplegia, unspecified; N17.9 Acute kidney failure, unspecified; N13.6 Pyonephrosis; L97.528 Non-pressure chronic ulcer of other part of left foot with other specified severity; Y84.6 Urinary catheterization as the cause of abnormal reaction of the patient, or of later complication, without mention of misadventure at the time of the procedure; N31.9 Neuromuscular dysfunction of bladder, unspecified; K44.9 Diaphragmatic hernia without obstruction or gangrene; K80.20 Calculus of gallbladder without cholecystitis without obstruction; N18.9 Chronic kidney disease, unspecified; R31.9 Hematuria, unspecified; E55.9 Vitamin D deficiency, unspecified; L89.626 Pressure-induced deep tissue damage of left heel; Z93.3 Colostomy status; Y92.89 Other specified places as the place of occurrence of the external cause; Z99.3 Dependence on wheelchair
CPT/HCPCS: 36415; 73630-TC-LT; 74176-TC; 80053; 81003; 83605; 83690; 83735; 84100; 84484; 85025; 86140; 87040; 87086; 87186; 93005; 93010; 93926-TC; 97161-GP; 99285-25; G0378; J1644

== ENCOUNTER 2023-01-21 13:49 | Inpatient (IN) | payer OTHER ==
[2023-01-21] MEDS ORDERED: ACETAMINOPHEN 1000 MG/100 ML BAG IVPB ONE ×3 (14:40→18:13)
[2023-01-21] MEDS ORDERED: ACETAMINOPHEN INJECTION 100 ML IVPB ONE ×3 (15:08→18:20)
[2023-01-21] MEDS ORDERED: SODIUM CHLORIDE 1,000 ML IV STA ×3 (15:15→18:14)
[2023-01-21 15:28] LABS: BASO % 0.9 % (0-2.0); EOS % 4.5 % (0-4.5); HEMATOCRIT 37.5 % (35.4-49); HEMOGLOBIN 12.2 GM/dL (11.7-16.9); MCH 27.6 pg (25.7-33.7); MCHC 32.6 g/dl (32.0-35.9); MEAN CELL VOLUME 84.5 fl (80-96); MONO % 8.4 % (3.8-10.2); NEUT % 72.2 % (42.8-82.8); PLATELET COUNT 260 10^3/uL (134-434); RBC 4.43 M/mm3 (4.00-5.60); RDW 14.6 % (11.9-15.9); WHITE BLOOD COUNT 7.1 K/mm3 (4.0-10.0)
[2023-01-21 15:55] LABS: POTASSIUM 3.7 mmol/L (3.5-5.1)
[2023-01-21 15:58] LABS: ALBUMIN 2.6 g/dl (3.4-5.0); BLOOD UREA NITROGEN 22.8 mg/dL (7-18); CALCIUM 8.6 mg/dL (8.5-10.1)
[2023-01-21 16:01] LABS: CREATININE 1.2 mg/dL (0.55-1.3); PHOSPHOROUS 3.8 mg/dL (2.5-4.9)
[2023-01-21 16:03] LABS: BILIRUBIN,TOTAL 1.2 mg/dL (0.2-1); TOT PROT 8.4 g/dl (6.4-8.2)
[2023-01-21 16:14] LABS: EPI CELLS >36 /uL (0-25.1); HYALINE CASTS 26 /uL (0-3.1); PH,URINE 5.5 (5.0-8.0); URINE APPEARANCE TURBID; URINE BACTERIA 35 /uL (0-1359); URINE BILIRUBIN NEGATIVE (NEGATIVE); URINE COLOR RED; URINE GLUCOSE (UA) NEGATIVE (NEGATIVE); URINE KETONE 1+ (NEGATIVE); URINE LEUK ESTERASE 3+ (NEGATIVE); URINE NITRITE NEGATIVE (NEGATIVE); URINE PROTEIN 2+ (NEGATIVE); URINE UROBILINOGEN 0.2 mg/dL (0.2-1.0); URINE WBC 15394 /uL (0-25.8)
[2023-01-21] MEDS ORDERED: PIPERACILLIN/TAZOB 3.375 GM 3.375 GM in DEXTROSE 5%-WATER - 50 ML IVPB ONE (16:15)
[2023-01-21] MEDS ORDERED: VANCOMYCIN 1,000 MG in DEXTROSE 5%-WATER - 250 ML IVPB ONE (16:15)
[2023-01-21] MEDS ORDERED: PIPERACILLIN/TAZOB 3.375 GM 3.375 GM/50 ML BAG IVPB ONE (16:20)
[2023-01-21] MEDS ORDERED: PIPERACILLIN/TAZOB 4.5 GM 4.5 GM/100 ML BAG IVPB ONE (16:47)
[2023-01-21] MEDS ORDERED: VANCOMYCIN 1 GRAM (PRE-DOCKED) 1,000 MG/250 ML BAG IVPB ONE (16:47)
[2023-01-21 16:54] LABS: URINE RBC 13271.4 /uL (0-23.9); YEAST OCCASIONAL (NEGATIVE)
[2023-01-21] MEDS ORDERED: OXYBUTYNIN CHLORIDE 5 MG TABLET PO ONE (18:24)
[2023-01-21] MEDS ORDERED: SODIUM CHLORIDE 1,000 ML IV SCH ×2 (21:45→22:19)
[2023-01-21] MEDS ORDERED: POLYETHYLENE GLYCOL (HEALTHYLAX) 3350 17 GM PACKET PO SCH (22:30)
[2023-01-21] MEDS ORDERED: ACETAMINOPHEN 1000 MG/100 ML BAG IVPB PRN (23:56)
[2023-01-22] MEDS ORDERED: ACETAMINOPHEN INJECTION 100 ML IVPB ONE (00:14)
[2023-01-22] MEDS: LACTULOSE 20 GM/30 ML UDC (FOR ORAL USE ONLY) PO SCH ×3 (09:02→22:53)
[2023-01-22 09:09] LABS: HEMATOCRIT 35.2 % (35.4-49); HEMOGLOBIN 11.3 GM/dL (11.7-16.9); MCH 27.7 pg (25.7-33.7); MCHC 32.1 g/dl (32.0-35.9); MEAN CELL VOLUME 86.4 fl (80-96); MEAN PLT VOLUME 7.8 fl (7.5-11.1); PLATELET COUNT 238 10^3/uL (134-434); RBC 4.07 M/mm3 (4.00-5.60); RDW 14.5 % (11.9-15.9); WHITE BLOOD COUNT 7.6 K/mm3 (4.0-10.0)
[2023-01-22 09:28] LABS: POTASSIUM 3.7 mmol/L (3.5-5.1)
[2023-01-22 09:31] LABS: CALCIUM 8.3 mg/dL (8.5-10.1)
[2023-01-22 09:32] LABS: ALBUMIN 2.2 g/dl (3.4-5.0)
[2023-01-22 09:34] LABS: BLOOD UREA NITROGEN 19.8 mg/dL (7-18)
[2023-01-22 09:35] LABS: PHOSPHOROUS 3.1 mg/dL (2.5-4.9)
[2023-01-22 09:37] LABS: CREATININE 1.2 mg/dL (0.55-1.3); TOT PROT 7.4 g/dl (6.4-8.2)
[2023-01-22 09:39] LABS: MAGNESIUM 1.5 mg/dL (1.8-2.4)
[2023-01-22] MEDS: SIMETHICONE 80 MG TAB.CHEW (FP) PO SCH ×4 (09:52→22:52)
[2023-01-22] MEDS: MAGNESIUM HYDROX 2400MG/30ML ORAL SUSPENSION 30 ML CUP PO SCH (09:52)
[2023-01-22] MEDS ORDERED: DOXYCYCLINE HYCLATE 100 MG CAPSULE PO SCH (10:00)
[2023-01-22] MEDS ORDERED: ENOXAPARIN NA (PORCINE) 40 MG/0.4 ML DISP.SYRIN SQ SCH (10:00)
[2023-01-22] MEDS: CEFTRIAXONE 1 GM in DEXTROSE 5%-WATER - 50 ML IVPB SCH (11:41)
[2023-01-22] MEDS: COLLAGENASE CLOSTRIDIUM HIST. 30 GRAMS TUBE TP SCH (11:41)
[2023-01-22] MEDS: SENNOSIDES 8.8 MG/5 ML SYRUP PO SCH (23:13)
[2023-01-23] MEDS: LACTULOSE 20 GM/30 ML UDC (FOR ORAL USE ONLY) PO SCH ×3 (05:59→21:06)
[2023-01-23] MEDS: MAGNESIUM HYDROX 2400MG/30ML ORAL SUSPENSION 30 ML CUP PO SCH (10:58)
[2023-01-23] MEDS: CEFTRIAXONE 1 GM in DEXTROSE 5%-WATER - 50 ML IVPB SCH (10:58)
[2023-01-23] MEDS: SIMETHICONE 80 MG TAB.CHEW (FP) PO SCH ×4 (10:58→21:06)
[2023-01-23] MEDS: COLLAGENASE CLOSTRIDIUM HIST. 30 GRAMS TUBE TP SCH (10:59)
[2023-01-23 15:12] VITALS: BMI 23.6
[2023-01-23] MEDS: AMINO ACIDS/PROTEIN HYDROLYS 30 ML LIQUID.PKT PO SCH (18:30)
[2023-01-23] MEDS: SENNOSIDES 8.8 MG/5 ML SYRUP PO SCH (21:09)
[2023-01-24] MEDS: LACTULOSE 20 GM/30 ML UDC (FOR ORAL USE ONLY) PO SCH ×3 (05:17→21:35)
[2023-01-24] MEDS: AMINO ACIDS/PROTEIN HYDROLYS 30 ML LIQUID.PKT PO SCH ×2 (07:49→18:59)
[2023-01-24] MEDS ORDERED: DEXTROSE 5%-0.45% SALINE 1,000 ML IV SCH (08:30)
[2023-01-24] MEDS: CEFTRIAXONE 1 GM in DEXTROSE 5%-WATER - 50 ML IVPB SCH (09:50)
[2023-01-24] MEDS: SIMETHICONE 80 MG TAB.CHEW (FP) PO SCH ×4 (09:51→21:35)
[2023-01-24] MEDS: MAGNESIUM HYDROX 2400MG/30ML ORAL SUSPENSION 30 ML CUP PO SCH (09:51)
[2023-01-24] MEDS: COLLAGENASE CLOSTRIDIUM HIST. 30 GRAMS TUBE TP SCH (09:51)
[2023-01-24 09:53] LABS: INR 1.22 (0.83-1.09); PROTHROMBIN TIME (PATIENT) 14.1 SEC (9.7-13.0)
[2023-01-24 09:57] LABS: BASO % 0.6 % (0-2.0); EOS % 14.3 % (0-4.5); HEMATOCRIT 36.8 % (35.4-49); HEMOGLOBIN 11.5 GM/dL (11.7-16.9); LYMPH % 13.3 % (8-40); MCH 27.5 pg (25.7-33.7); MCHC 31.3 g/dl (32.0-35.9); MEAN CELL VOLUME 87.8 fl (80-96); MEAN PLT VOLUME 8.3 fl (7.5-11.1); MONO % 8.5 % (3.8-10.2); NEUT % 63.3 % (42.8-82.8); PLATELET COUNT 221 10^3/uL (134-434); RDW 15.2 % (11.9-15.9); WHITE BLOOD COUNT 6.7 K/mm3 (4.0-10.0)
[2023-01-24] MEDS ORDERED: MULTIVITAMINS (DAILY MVI) TABLET (FP) PO SCH (10:00)
[2023-01-24 10:07] LABS: POTASSIUM 3.9 mmol/L (3.5-5.1)
[2023-01-24 10:21] LABS: CALCIUM 8.6 mg/dL (8.5-10.1)
[2023-01-24 10:22] LABS: ALBUMIN 2.2 g/dl (3.4-5.0); BLOOD UREA NITROGEN 17.8 mg/dL (7-18)
[2023-01-24 10:25] LABS: CREATININE 1.2 mg/dL (0.55-1.3)
[2023-01-24 10:26] LABS: BILIRUBIN,TOTAL 0.5 mg/dL (0.2-1)
[2023-01-24 10:27] LABS: TOT PROT 7.8 g/dl (6.4-8.2)
[2023-01-24] MEDS ORDERED: HEPARIN NA (PORCINE) 5,000 UNITS/ML 1ML VIAL SQ SCH (14:00)
[2023-01-24] MEDS ORDERED: LIDOCAINE HCL 1%, 10 MG/ML (20ML VIAL) ONE (14:22)
[2023-01-24] MEDS ORDERED: MIDAZOLAM HCL 2 MG/2 ML SINGLE DOSE VIAL ONE (14:29)
[2023-01-24] MEDS ORDERED: PROPOFOL 20 ML ONE (14:29)
[2023-01-24] MEDS ORDERED: ONDANSETRON 4 MG/2 ML VIAL ONE (14:55)
[2023-01-24] MEDS ORDERED: DEXAMETHASONE SOD PHOSPHATE 4 MG/1 ML VIAL ONE (15:00)
[2023-01-24] MEDS ORDERED: LIDOCAINE HCL 1%, 10 MG/ML (20ML VIAL) NR ONE (15:10)
[2023-01-24] MEDS ORDERED: ONDANSETRON 4 MG/2 ML VIAL IVPUSH PRN (15:43)
[2023-01-24] MEDS ORDERED: oxyCODONE HCL 5 MG TABLET PO PRN (15:43)
[2023-01-24] MEDS ORDERED: LACTATED RINGERS SOLUTION 1,000 ML IV SCH (15:45)
[2023-01-24] MEDS: HEPARIN NA (PORCINE) 5,000 UNITS/ML 1ML VIAL SQ SCH (21:36)
[2023-01-24] MEDS: SENNOSIDES 8.8 MG/5 ML SYRUP PO SCH (21:37)
[2023-01-25] MEDS: HEPARIN NA (PORCINE) 5,000 UNITS/ML 1ML VIAL SQ SCH ×3 (05:44→21:59)
[2023-01-25] MEDS: LACTULOSE 20 GM/30 ML UDC (FOR ORAL USE ONLY) PO SCH ×2 (05:44→14:30)
[2023-01-25] MEDS ORDERED: MAGNESIUM HYDROX 2400MG/30ML ORAL SUSPENSION 30 ML CUP PO SCH (10:00)
[2023-01-25] MEDS: ACETAMINOPHEN 1000 MG/100 ML BAG IVPB SCH ×3 (10:00→21:59)
[2023-01-25 10:33] LABS: BASO % 0.2 % (0-2.0); EOS % 0.5 % (0-4.5); HEMATOCRIT 34.6 % (35.4-49); HEMOGLOBIN 11.2 GM/dL (11.7-16.9); LYMPH % 4.9 % (8-40); MCH 27.8 pg (25.7-33.7); MCHC 32.5 g/dl (32.0-35.9); MEAN CELL VOLUME 85.5 fl (80-96); MONO % 4.5 % (3.8-10.2); NEUT % 89.9 % (42.8-82.8); PLATELET COUNT 193 10^3/uL (134-434); RBC 4.05 M/mm3 (4.00-5.60); RDW 15.3 % (11.9-15.9); WHITE BLOOD COUNT 13.2 K/mm3 (4.0-10.0)
[2023-01-25 10:47] LABS: POTASSIUM 3.9 mmol/L (3.5-5.1)
[2023-01-25 10:50] LABS: ALBUMIN 2.3 g/dl (3.4-5.0); BLOOD UREA NITROGEN 15.7 mg/dL (7-18)
[2023-01-25 10:53] LABS: CREATININE 1.3 mg/dL (0.55-1.3)
[2023-01-25 10:55] LABS: BILIRUBIN,TOTAL 0.5 mg/dL (0.2-1); TOT PROT 7.8 g/dl (6.4-8.2)
[2023-01-25] MEDS: CEFTRIAXONE 1 GM in DEXTROSE 5%-WATER - 50 ML IVPB SCH (11:22)
[2023-01-25] MEDS: AMINO ACIDS/PROTEIN HYDROLYS 30 ML LIQUID.PKT PO SCH ×2 (11:23→17:29)
[2023-01-25] MEDS: MULTIVITAMINS (DAILY MVI) TABLET (FP) PO SCH (11:23)
[2023-01-25] MEDS: SIMETHICONE 80 MG TAB.CHEW (FP) PO SCH ×4 (11:23→22:01)
[2023-01-25 13:35] VITALS: RESP 18
[2023-01-25] MEDS: COLLAGENASE CLOSTRIDIUM HIST. 30 GRAMS TUBE TP SCH (17:31)
[2023-01-25] MEDS: SENNOSIDES 8.8 MG/5 ML SYRUP PO SCH (21:57)
[2023-01-26] MEDS: ACETAMINOPHEN 1000 MG/100 ML BAG IVPB SCH (03:05)
[2023-01-26] MEDS: HEPARIN NA (PORCINE) 5,000 UNITS/ML 1ML VIAL SQ SCH ×3 (05:44→22:01)
[2023-01-26] MEDS: AMINO ACIDS/PROTEIN HYDROLYS 30 ML LIQUID.PKT PO SCH ×2 (08:48→17:11)
[2023-01-26] MEDS: SIMETHICONE 80 MG TAB.CHEW (FP) PO SCH ×4 (10:02→22:01)
[2023-01-26] MEDS: CEFTRIAXONE 1 GM in DEXTROSE 5%-WATER - 50 ML IVPB SCH (10:03)
[2023-01-26] MEDS: MULTIVITAMINS (DAILY MVI) TABLET (FP) PO SCH (10:03)
[2023-01-26] MEDS: FLUCONAZOLE 100 MG TABLET (UD) PO SCH (10:04)
[2023-01-26 10:11] LABS: BASO % 0.4 % (0-2.0); EOS % 6.2 % (0-4.5); HEMATOCRIT 31.6 % (35.4-49); LYMPH % 12.1 % (8-40); MCH 27.3 pg (25.7-33.7); MCHC 31.5 g/dl (32.0-35.9); MEAN CELL VOLUME 86.7 fl (80-96); MEAN PLT VOLUME 8.1 fl (7.5-11.1); MONO % 13.5 % (3.8-10.2); NEUT % 67.8 % (42.8-82.8); PLATELET COUNT 170 10^3/uL (134-434); RBC 3.65 M/mm3 (4.00-5.60); WHITE BLOOD COUNT 7.2 K/mm3 (4.0-10.0)
[2023-01-26 10:27] LABS: POTASSIUM 3.8 mmol/L (3.5-5.1)
[2023-01-26 10:32] LABS: BLOOD UREA NITROGEN 19.2 mg/dL (7-18)
[2023-01-26 10:35] LABS: CREATININE 1.2 mg/dL (0.55-1.3)
[2023-01-26 10:37] LABS: BILIRUBIN,TOTAL 0.4 mg/dL (0.2-1); TOT PROT 6.8 g/dl (6.4-8.2)
[2023-01-26] MEDS ORDERED: SODIUM CHLORIDE 500 ML IV STA (13:34)
[2023-01-26] MEDS: COLLAGENASE CLOSTRIDIUM HIST. 30 GRAMS TUBE TP SCH (13:50)
[2023-01-26] MEDS ORDERED: LACTATED RINGERS SOLUTION 1,000 ML/1,000 ML INFUS.BAG IV SCH (14:30)
[2023-01-26] MEDS: AMOX TR/POT CLAV 875MG/125MG TABLETS (FP) PO SCH (17:11)
[2023-01-26] MEDS: SENNOSIDES 8.8 MG/5 ML SYRUP PO SCH (23:20)
[2023-01-27] MEDS: HEPARIN NA (PORCINE) 5,000 UNITS/ML 1ML VIAL SQ SCH ×2 (06:11→07:35)
[2023-01-27 07:33] VITALS: BP 122/66; PULSE 81; TEMP 98.4
[2023-01-27 09:38] LABS: HEMATOCRIT 31.5 % (35.4-49); HEMOGLOBIN 10.4 GM/dL (11.7-16.9); MCH 27.9 pg (25.7-33.7); MCHC 33.1 g/dl (32.0-35.9); MEAN CELL VOLUME 84.4 fl (80-96); MEAN PLT VOLUME 7.7 fl (7.5-11.1); PLATELET COUNT 173 10^3/uL (134-434); RBC 3.74 M/mm3 (4.00-5.60); RDW 15.1 % (11.9-15.9); WHITE BLOOD COUNT 6.3 K/mm3 (4.0-10.0)
[2023-01-27 09:56] LABS: POTASSIUM 3.6 mmol/L (3.5-5.1)
[2023-01-27] MEDS: AMINO ACIDS/PROTEIN HYDROLYS 30 ML LIQUID.PKT PO SCH (09:57)
[2023-01-27] MEDS: MULTIVITAMINS (DAILY MVI) TABLET (FP) PO SCH (09:58)
[2023-01-27] MEDS: AMOX TR/POT CLAV 875MG/125MG TABLETS (FP) PO SCH (09:58)
[2023-01-27] MEDS: SIMETHICONE 80 MG TAB.CHEW (FP) PO SCH (09:58)
[2023-01-27] MEDS: COLLAGENASE CLOSTRIDIUM HIST. 30 GRAMS TUBE TP SCH (09:59)
[2023-01-27] MEDS: FLUCONAZOLE 100 MG TABLET (UD) PO SCH (10:16)
[2023-01-27 10:21] LABS: CALCIUM 8.2 mg/dL (8.5-10.1)
[2023-01-27 10:22] LABS: BLOOD UREA NITROGEN 21.2 mg/dL (7-18)
[2023-01-27 10:25] LABS: CREATININE 1.1 mg/dL (0.55-1.3)
[2023-01-27 10:27] LABS: BILIRUBIN,TOTAL 0.4 mg/dL (0.2-1)
== END 2023-01-27 13:24 | disposition home or self-care (01) | DRG 699 ==
LOC: JER 13:49 → JERBED 16:22 → J5S 01-22 05:38 → J8W 01-26 22:46
PROVIDERS: ADMIT Internal Medicine; ATTEND Internal Medicine
PROC: 0T9B40Z Drainage of Bladder with Drainage Device, Percutaneous Endoscopic Approach (ICD-10-PCS; 2023-01-24)
PROC: 0T2BX0Z Change Drainage Device in Bladder, External Approach (ICD-10-PCS; principal; 2023-01-24 15:00)
PROC: 0TJB8ZZ Inspection of Bladder, Via Natural or Artificial Opening Endoscopic (ICD-10-PCS; 2023-01-24 15:00)
DX: T83.511A Infection and inflammatory reaction due to indwelling urethral catheter, initial encounter (principal); G82.20 Paraplegia, unspecified; N39.0 Urinary tract infection, site not specified; N20.0 Calculus of kidney; K59.00 Constipation, unspecified; N31.9 Neuromuscular dysfunction of bladder, unspecified; R33.8 Other retention of urine; Y92.89 Other specified places as the place of occurrence of the external cause
CPT/HCPCS: 36415; 73630-TC-RT-FY; 80053; 81003; 83605; 83735; 84100; 84484; 85025; 85027; 85610; 86850; 86900; 86901; 87040; 87077; 87086; 93005; 93010; 94760; 97162-GP; 99285-25; J1644

== ENCOUNTER 2023-04-06 12:18 | Inpatient (IN) | payer OTHER ==
[2023-04-06] MEDS ORDERED: VANCOMYCIN 1,000 MG in DEXTROSE 5%-WATER - 250 ML IVPB ONE (13:10)
[2023-04-06] MEDS ORDERED: PIPERACILLIN/TAZOB 4.5 GM 4.5 GM in DEXTROSE 5%-WATER 100 ML IVPB ONE (13:12)
[2023-04-06] MEDS ORDERED: ACETAMINOPHEN 1000 MG/100 ML BAG IVPB ONE (13:45)
[2023-04-06] MEDS ORDERED: LACTATED RINGERS SOLUTION 1000 ML INFUS.BAG IV ONE (13:45)
[2023-04-06 14:41] LABS: EPI CELLS 15 /uL (0-25.1); HYALINE CASTS 1 /uL (0-3.1); URINE APPEARANCE TURBID; URINE BACTERIA 6001 /uL (0-1359); URINE BILIRUBIN NEGATIVE (NEGATIVE); URINE COLOR YELLOW; URINE GLUCOSE (UA) NEGATIVE (NEGATIVE); URINE KETONE NEGATIVE (NEGATIVE); URINE LEUK ESTERASE 3+ (NEGATIVE); URINE NITRITE NEGATIVE (NEGATIVE); URINE PROTEIN 2+ (NEGATIVE); URINE UROBILINOGEN 0.2 mg/dL (0.2-1.0); URINE WBC 5228 /uL (0-25.8)
[2023-04-06 14:45] LABS: BASO % 0.9 % (0-2.0); EOS % 4.3 % (0-4.5); HEMATOCRIT 35.1 % (35.4-49); HEMOGLOBIN 11.3 GM/dL (11.7-16.9); LYMPH % 10.6 % (8-40); MCH 26.5 pg (25.7-33.7); MCHC 32.2 g/dl (32.0-35.9); MEAN CELL VOLUME 82.5 fl (80-96); MEAN PLT VOLUME 7.4 fl (7.5-11.1); NEUT % 73.2 % (42.8-82.8); PLATELET COUNT 360 10^3/uL (134-434); RBC 4.26 M/mm3 (4.00-5.60); RDW 13.9 % (11.9-15.9); WHITE BLOOD COUNT 11.5 K/mm3 (4.0-10.0)
[2023-04-06 14:52] LABS: INR 1.23 (0.83-1.09); PROTHROMBIN TIME (PATIENT) 14.2 SEC (9.7-13.0)
[2023-04-06 14:54] LABS: ACTIVATED PTT 23.8 SECONDS (25.2-36.5)
[2023-04-06 15:06] LABS: CHLORIDE 96 mmol/L (98-107); POTASSIUM 4.8 mmol/L (3.5-5.1); SODIUM 128 mmol/L (136-145)
[2023-04-06 15:09] LABS: CALCIUM 9.4 mg/dL (8.5-10.1)
[2023-04-06 15:10] LABS: ALBUMIN 2.4 g/dl (3.4-5.0); ANION GAP 5 mmol/L (4-13); BLOOD UREA NITROGEN 41.7 mg/dL (7-18); CO2 28 mmol/L (21-32); GLUCOSE,RANDOM 110 mg/dL (74-106); MAGNESIUM 2.3 mg/dL (1.8-2.4)
[2023-04-06 15:11] LABS: URINE RBC 102 /uL (0-23.9); YEAST NONE SEEN (NEGATIVE)
[2023-04-06 15:13] LABS: CREATININE 1.8 mg/dL (0.55-1.3); PHOSPHOROUS 3.5 mg/dL (2.5-4.9); SGOT/AST 47 U/L (15-37); SGPT/ALT 9 U/L (13-61)
[2023-04-06 15:14] LABS: BILIRUBIN,TOTAL 0.6 mg/dL (0.2-1); TOT PROT 9.4 g/dl (6.4-8.2)
[2023-04-06 15:15] LABS: ALK PHOS 46 U/L (45-117)
[2023-04-06] MEDS ORDERED: ACETAMINOPHEN INJECTION 100 ML IVPB ONE (15:19)
[2023-04-06] MEDS ORDERED: PIPERACILLIN/TAZOB 4.5 GM 4.5 GM/100 ML BAG IVPB ONE (15:19)
[2023-04-06] MEDS ORDERED: VANCOMYCIN 1 GRAM (PRE-DOCKED) 1,000 MG/250 ML BAG IVPB ONE (15:20)
[2023-04-06 21:42] LABS: POTASSIUM 4.6 mmol/L (3.5-5.1)
[2023-04-06 21:44] LABS: ALBUMIN 2.2 g/dl (3.4-5.0); CALCIUM 8.5 mg/dL (8.5-10.1)
[2023-04-06 21:47] LABS: CREATININE 2.3 mg/dL (0.55-1.3)
[2023-04-06 21:49] LABS: BILIRUBIN,TOTAL 0.9 mg/dL (0.2-1); TOT PROT 8.2 g/dl (6.4-8.2)
[2023-04-06 22:30] LABS: HEMATOCRIT 32.2 % (35.4-49); HEMOGLOBIN 10.4 GM/dL (11.7-16.9); MCH 26.5 pg (25.7-33.7); MCHC 32.3 g/dl (32.0-35.9); MEAN CELL VOLUME 82.1 fl (80-96); MEAN PLT VOLUME 6.6 fl (7.5-11.1); PLATELET COUNT 284 10^3/uL (134-434); RBC 3.93 M/mm3 (4.00-5.60); RDW 13.9 % (11.9-15.9)
[2023-04-06 22:55] LABS: CHLORIDE 96 mmol/L (98-107); POTASSIUM 4.6 mmol/L (3.5-5.1); SODIUM 128 mmol/L (136-145)
[2023-04-06 22:57] LABS: ALBUMIN 2.2 g/dl (3.4-5.0)
[2023-04-06 22:58] LABS: ANION GAP 5 mmol/L (4-13); CO2 27 mmol/L (21-32)
[2023-04-06 23:00] LABS: CREATININE 2.5 mg/dL (0.55-1.3); PHOSPHOROUS 3.8 mg/dL (2.5-4.9); SGOT/AST 31 U/L (15-37); SGPT/ALT 6 U/L (13-61)
[2023-04-06 23:01] LABS: TOT PROT 8.5 g/dl (6.4-8.2)
[2023-04-06 23:03] LABS: ALK PHOS 49 U/L (45-117); BLOOD UREA NITROGEN 46.6 mg/dL (7-18)
[2023-04-06 23:04] LABS: GLUCOSE,RANDOM 104 mg/dL (74-106)
[2023-04-06] MEDS ORDERED: morphine CARPU-JECT 4 MG/1 ML DISP.SYRIN IVPUSH ONE (23:08)
[2023-04-07] MEDS ORDERED: SODIUM CHLORIDE 1,000 ML IV SCH (00:15)
[2023-04-07] MEDS ORDERED: ACETAMINOPHEN 1000 MG/100 ML BAG IVPB ONE ×2 (00:24→06:00)
[2023-04-07] MEDS ORDERED: ACETAMINOPHEN INJECTION 100 ML IVPB ONE (00:37)
[2023-04-07] MEDS ORDERED: morphine SULFATE 4 MG/ML VIAL ONE (00:40)
[2023-04-07] MEDS ORDERED: LACTATED RINGERS SOLUTION 1,000 ML/1,000 ML INFUS.BAG IV STA (00:46)
[2023-04-07] MEDS ORDERED: ACETAMINOPHEN 1000 MG/100 ML BAG IVPB PRN (00:47)
[2023-04-07] MEDS ORDERED: LACTATED RINGERS SOLUTION 1,000 ML/1,000 ML INFUS.BAG IV SCH (01:00)
[2023-04-07] MEDS ORDERED: SODIUM CHLORIDE 1,000 ML IV STA ×2 (01:30→05:43)
[2023-04-07] MEDS ORDERED: NOREPINEPHRINE BITARTRATE 4 MG/4 ML ML IV ONE (03:30)
[2023-04-07] MEDS ORDERED: NOREPINEPHRINE BITARTRATE 4,000 MCG in DEXTROSE 5%-WATER - 496 ML IV SCH ×3 (03:30→12:00)
[2023-04-07] MEDS ORDERED: PIPERACILLIN/TAZOB 3.375 GM 3.375 GM in DEXTROSE 5%-WATER - 50 ML IVPB ONE (04:11)
[2023-04-07] MEDS ORDERED: OXYBUTYNIN CHLORIDE 5 MG TABLET PO ONE (04:13)
[2023-04-07] MEDS: SODIUM CHLORIDE 1,000 ML IV SCH ×3 (04:35→22:36)
[2023-04-07 05:07] LABS: LACTIC ACID 8.3 mmol/L (0.4-2.0)
[2023-04-07 05:10] VITALS: BMI 19.3
[2023-04-07 05:41] LABS: POTASSIUM 5.1 mmol/L (3.5-5.1)
[2023-04-07 05:43] LABS: ALBUMIN 1.9 g/dl (3.4-5.0); CALCIUM 8.6 mg/dL (8.5-10.1)
[2023-04-07 05:44] LABS: BLOOD UREA NITROGEN 46.8 mg/dL (7-18); MAGNESIUM 1.8 mg/dL (1.8-2.4)
[2023-04-07 05:46] LABS: CREATININE 3.4 mg/dL (0.55-1.3)
[2023-04-07 05:47] LABS: PHOSPHOROUS 3.7 mg/dL (2.5-4.9)
[2023-04-07 05:48] LABS: TOT PROT 7.6 g/dl (6.4-8.2)
[2023-04-07] MEDS ORDERED: VANCOMYCIN/WATER FOR INJ (PEG) 1,000 MG/200 ML BAG IVPB ONE (06:00)
[2023-04-07] MEDS ORDERED: HEPARIN NA (PORCINE) 5,000 UNITS/ML 1ML VIAL SQ SCH (06:00)
[2023-04-07] MEDS ORDERED: MEROPENEM 1 GM in DEXTROSE 5%-WATER 100 ML IVPB ONE (06:00)
[2023-04-07 06:50] LABS: HEMATOCRIT 34.3 % (35.4-49); HEMOGLOBIN 10.8 GM/dL (11.7-16.9); MCH 27.1 pg (25.7-33.7); MCHC 31.6 g/dl (32.0-35.9); MEAN CELL VOLUME 85.7 fl (80-96); MEAN PLT VOLUME 7.5 fl (7.5-11.1); PLATELET COUNT 287 10^3/uL (134-434); WHITE BLOOD COUNT 16.7 K/mm3 (4.0-10.0)
[2023-04-07 09:02] LABS: ANISOCYTOSIS 0; MACROCYTOSIS 0
[2023-04-07] MEDS ORDERED: FLU VACCINE (FLULAVAL) PF 60 MCG/0.5 ML SYRINGE 2023-2024 IM ONE (10:00)
[2023-04-07] MEDS ORDERED: MUPIROCIN 2% TOPICAL OINTMENT FOR DECOLONIZATION NS SCH (10:00)
[2023-04-07] MEDS ORDERED: PIPERACILLIN/TAZOB 3.375 GM 3.375 GM in DEXTROSE 5%-WATER - 50 ML IVPB SCH (10:00)
[2023-04-07] MEDS: PIPERACILLIN/TAZOB 2.25 GM 2.25 GM in DEXTROSE 5%-WATER - 50 ML IVPB SCH ×2 (10:58→17:05)
[2023-04-07] MEDS: MUPIROCIN 2% TOPICAL OINTMENT FOR DECOLONIZATION NS SCH ×2 (11:05→21:13)
[2023-04-07] MEDS ORDERED: NOREPINEPHRINE BITARTRATE 16,000 MCG in SODIUM CHLORIDE 484 ML IV SCH (12:00)
[2023-04-07] MEDS: HEPARIN NA (PORCINE) 5,000 UNITS/ML 1ML VIAL SQ SCH ×2 (13:33→21:13)
[2023-04-07] MEDS: ACETAMINOPHEN 1000 MG/100 ML BAG IVPB PRN ×2 (13:51→21:44)
[2023-04-07] MEDS: NOREPINEPHRINE 0.9 % NACL 8 MG/250 ML BAG IVPB SCH (14:08)
[2023-04-07 15:38] LABS: HEMATOCRIT 32.4 % (35.4-49); HEMOGLOBIN 10.3 GM/dL (11.7-16.9); MCH 26.2 pg (25.7-33.7); MCHC 31.8 g/dl (32.0-35.9); MEAN CELL VOLUME 82.6 fl (80-96); PLATELET COUNT 245 10^3/uL (134-434); RBC 3.92 M/mm3 (4.00-5.60); RDW 14.5 % (11.9-15.9)
[2023-04-07 15:50] LABS: WHITE BLOOD COUNT 33.2 K/mm3 (4.0-10.0)
[2023-04-07 15:55] LABS: POTASSIUM 5.3 mmol/L (3.5-5.1)
[2023-04-07 16:01] LABS: ALBUMIN 1.8 g/dl (3.4-5.0); CALCIUM 7.7 mg/dL (8.5-10.1)
[2023-04-07 16:02] LABS: MAGNESIUM 1.6 mg/dL (1.8-2.4)
[2023-04-07 16:04] LABS: PHOSPHOROUS 3.9 mg/dL (2.5-4.9)
[2023-04-07 16:05] LABS: BILIRUBIN,TOTAL 0.9 mg/dL (0.2-1)
[2023-04-07 16:06] LABS: TOT PROT 7.2 g/dl (6.4-8.2)
[2023-04-07 16:11] LABS: LACTIC ACID 3.2 mmol/L (0.4-2.0)
[2023-04-07 16:22] LABS: ANISOCYTOSIS 0; MACROCYTOSIS 0
[2023-04-07] MEDS ORDERED: morphine SULFATE 4 MG/ML VIAL IVPUSH ONE (17:28)
[2023-04-07 19:34] LABS: INR 1.68 (0.83-1.09); PROTHROMBIN TIME (PATIENT) 19.4 SEC (9.7-13.0)
[2023-04-07 19:37] LABS: ACTIVATED PTT 36.7 SECONDS (25.2-36.5); POTASSIUM 5.3 mmol/L (3.5-5.1)
[2023-04-07 19:41] LABS: ALBUMIN 1.8 g/dl (3.4-5.0); BLOOD UREA NITROGEN 49.3 mg/dL (7-18); CALCIUM 7.5 mg/dL (8.5-10.1); MAGNESIUM 1.5 mg/dL (1.8-2.4)
[2023-04-07 19:44] LABS: CREATININE 4.2 mg/dL (0.55-1.3); PHOSPHOROUS 4.2 mg/dL (2.5-4.9)
[2023-04-07 19:46] LABS: BILIRUBIN,TOTAL 0.8 mg/dL (0.2-1); TOT PROT 7.2 g/dl (6.4-8.2)
[2023-04-07 19:58] LABS: LACTIC ACID 2.8 mmol/L (0.4-2.0)
[2023-04-07] MEDS ORDERED: MAGNESIUM 1GM/D5W - 1 GM/100 ML IVPB IVPB ONE (21:15)
[2023-04-07] MEDS ORDERED: CHLORHEXIDINE GLUCONATE 4% CLEANSER FOR DECOLONIZATION TP SCH (22:00)
[2023-04-07 22:01] LABS: BASO % 0.1 % (0-2.0); EOS % 0.1 % (0-4.5); HEMATOCRIT 33.2 % (35.4-49); HEMOGLOBIN 10.7 GM/dL (11.7-16.9); LYMPH % 0.9 % (8-40); MCH 26.4 pg (25.7-33.7); MCHC 32.2 g/dl (32.0-35.9); MEAN PLT VOLUME 6.6 fl (7.5-11.1); MONO % 2.2 % (3.8-10.2); NEUT % 96.7 % (42.8-82.8); PLATELET COUNT 226 10^3/uL (134-434); RBC 4.04 M/mm3 (4.00-5.60); RDW 14.3 % (11.9-15.9)
[2023-04-07 22:09] LABS: WHITE BLOOD COUNT 32.1 K/mm3 (4.0-10.0)
[2023-04-07] MEDS ORDERED: HYDROmorphone HCl 2 MG/ML VIAL IVPUSH ONE (22:20)
[2023-04-07] MEDS: TAMSULOSIN HCL 0.4 MG CAP PO SCH (22:36)
[2023-04-07 22:37] LABS: ANISOCYTOSIS 1+; MACROCYTOSIS 1+
[2023-04-07] MEDS: CHLORHEXIDINE GLUCONATE 4% CLEANSER FOR DECOLONIZATION TP SCH (22:37)
[2023-04-08 00:17] LABS: HEMATOCRIT 32.3 % (35.4-49); HEMOGLOBIN 10.3 GM/dL (11.7-16.9); MCH 26.4 pg (25.7-33.7); MEAN CELL VOLUME 82.7 fl (80-96); MEAN PLT VOLUME 6.7 fl (7.5-11.1); PLATELET COUNT 215 10^3/uL (134-434); RBC 3.91 M/mm3 (4.00-5.60); RDW 14.3 % (11.9-15.9)
[2023-04-08] MEDS ORDERED: VASOPRESSIN 20 UNITS/ML VIAL IV ONE (00:27)
[2023-04-08] MEDS: VASOPRESSIN 40 UNITS/100 ML BAG IV SCH (00:30)
[2023-04-08 00:31] LABS: WHITE BLOOD COUNT 31.5 K/mm3 (4.0-10.0)
[2023-04-08 00:52] LABS: CHLORIDE 97 mmol/L (98-107); POTASSIUM 5.6 mmol/L (3.5-5.1); SODIUM 125 mmol/L (136-145)
[2023-04-08 00:55] LABS: ANION GAP 6 mmol/L (4-13); CALCIUM 7.5 mg/dL (8.5-10.1); CO2 21 mmol/L (21-32); GLUCOSE,RANDOM 75 mg/dL (74-106)
[2023-04-08 00:57] LABS: ALBUMIN 1.7 g/dl (3.4-5.0); BLOOD UREA NITROGEN 51.2 mg/dL (7-18); MAGNESIUM 2.1 mg/dL (1.8-2.4)
[2023-04-08 00:59] LABS: CREATININE 4.4 mg/dL (0.55-1.3); PHOSPHOROUS 4.3 mg/dL (2.5-4.9); SGPT/ALT < 6 U/L (13-61)
[2023-04-08 01:00] LABS: SGOT/AST 37 U/L (15-37)
[2023-04-08 01:01] LABS: BILIRUBIN,TOTAL 0.8 mg/dL (0.2-1)
[2023-04-08 01:02] LABS: ALK PHOS 45 U/L (45-117)
[2023-04-08] MEDS ORDERED: DEXTROSE 50%-WATER 25 GM/50 ML DISP.SYRIN IVPUSH ONE ×2 (01:45→09:33)
[2023-04-08] MEDS ORDERED: INSULIN REGULAR HUMAN 100 UNITS/ML *VIAL IVPUSH ONE ×2 (01:45→09:32)
[2023-04-08] MEDS ORDERED: CALCIUM GLUCONATE 10% - 1,000 MG/10 ML VIAL IVPB ONE (01:45)
[2023-04-08] MEDS ORDERED: DEXTROSE 50%-WATER - 25 GM/50 ML VIAL IVPUSH ONE (01:45)
[2023-04-08] MEDS ORDERED: SODIUM ZIRCONIUM CYCLOSILICATE (LOKELMA) 5 GM PACKET PO ONE (01:45)
[2023-04-08] MEDS: PIPERACILLIN/TAZOB 2.25 GM 2.25 GM in DEXTROSE 5%-WATER - 50 ML IVPB SCH ×3 (01:56→18:37)
[2023-04-08] MEDS ORDERED: MAGNESIUM HYDROX 2400MG/30ML ORAL SUSPENSION 30 ML CUP PO ONE (02:33)
[2023-04-08 03:16] LABS: ANISOCYTOSIS 0; MACROCYTOSIS 0; ROULEAU 1+
[2023-04-08] MEDS: HEPARIN NA (PORCINE) 5,000 UNITS/ML 1ML VIAL SQ SCH ×3 (06:38→21:42)
[2023-04-08] MEDS: NOREPINEPHRINE 0.9 % NACL 8 MG/250 ML BAG IVPB SCH ×3 (06:42→20:42)
[2023-04-08] MEDS: SODIUM CHLORIDE 1,000 ML IV SCH (07:19)
[2023-04-08 07:38] LABS: HEMATOCRIT 31.7 % (35.4-49); HEMOGLOBIN 10.1 GM/dL (11.7-16.9); MCH 26.9 pg (25.7-33.7); MCHC 31.7 g/dl (32.0-35.9); MEAN CELL VOLUME 84.9 fl (80-96); MEAN PLT VOLUME 7.4 fl (7.5-11.1); PLATELET COUNT 206 10^3/uL (134-434); RBC 3.74 M/mm3 (4.00-5.60); RDW 14.3 % (11.9-15.9)
[2023-04-08 07:54] LABS: POTASSIUM 5.2 mmol/L (3.5-5.1)
[2023-04-08 08:02] LABS: CALCIUM 7.9 mg/dL (8.5-10.1)
[2023-04-08 08:03] LABS: ALBUMIN 1.7 g/dl (3.4-5.0); BLOOD UREA NITROGEN 52.7 mg/dL (7-18); CREATININE 4.4 mg/dL (0.55-1.3)
[2023-04-08 08:05] LABS: BILIRUBIN,TOTAL 0.7 mg/dL (0.2-1); TOT PROT 7.1 g/dl (6.4-8.2)
[2023-04-08 08:06] LABS: PHOSPHOROUS 4.6 mg/dL (2.5-4.9)
[2023-04-08 08:54] LABS: ANISOCYTOSIS 1+; MACROCYTOSIS 0
[2023-04-08] MEDS ORDERED: METOCLOPRAMIDE HCL INJECTION 10 MG/2 ML VIAL IVPUSH ONE (09:32)
[2023-04-08] MEDS ORDERED: ACETAMINOPHEN 1000 MG/100 ML BAG IVPB ONE (10:00)
[2023-04-08] MEDS: PANTOPRAZOLE SODIUM 40 MG VIAL IVPUSH SCH (10:13)
[2023-04-08] MEDS: SODIUM ZIRCONIUM CYCLOSILICATE (LOKELMA) 5 GM PACKET PO SCH (10:17)
[2023-04-08] MEDS: MUPIROCIN 2% TOPICAL OINTMENT FOR DECOLONIZATION NS SCH ×2 (10:18→21:42)
[2023-04-08] MEDS: TAMSULOSIN HCL 0.4 MG CAP PO SCH ×2 (10:18→18:35)
[2023-04-08] MEDS: POLYETHYLENE GLYCOL (HEALTHYLAX) 3350 17 GM PACKET PO SCH (10:18)
[2023-04-08 11:39] LABS: LACTIC ACID 3.4 mmol/L (0.4-2.0)
[2023-04-08 15:47] LABS: CALCIUM 7.5 mg/dL (8.5-10.1)
[2023-04-08 15:48] LABS: BLOOD UREA NITROGEN 51.6 mg/dL (7-18)
[2023-04-08 15:51] LABS: CREATININE 4.7 mg/dL (0.55-1.3)
[2023-04-08] MEDS: SODIUM BICARBONATE 8.4% - 150 MEQ in DEXTROSE 5%-WATER - 950 ML IVPB SCH (19:00)
[2023-04-08] MEDS ORDERED: FENTANYL CITRATE/PF 50 MCG/ML VIAL ONE (19:26)
[2023-04-08] MEDS ORDERED: MIDAZOLAM HCL 2 MG/2 ML SINGLE DOSE VIAL ONE (19:27)
[2023-04-08] MEDS ORDERED: KETAMINE HCL 200 MG/20 ML VIAL ONE (19:27)
[2023-04-08] MEDS ORDERED: IOHEXOL 300 MG/ML INFUS..BTL IV ONE (20:07)
[2023-04-08] MEDS: CHLORHEXIDINE GLUCONATE 4% CLEANSER FOR DECOLONIZATION TP SCH (21:43)
[2023-04-09] MEDS: VASOPRESSIN 40 UNITS/100 ML BAG IV SCH (02:15)
[2023-04-09] MEDS: NOREPINEPHRINE 0.9 % NACL 8 MG/250 ML BAG IVPB SCH ×2 (02:38→13:47)
[2023-04-09] MEDS: PIPERACILLIN/TAZOB 2.25 GM 2.25 GM in DEXTROSE 5%-WATER - 50 ML IVPB SCH ×3 (02:39→17:16)
[2023-04-09 06:52] LABS: ARTERIAL BLD GAS O2 SATURATION 92.2 % (95-98); ARTERIAL BLOOD GAS BASE EXCESS -4.1 mmol/L (-2-2); ARTERIAL BLOOD GAS PO2 66.2 mmHg (80-100); ARTERIAL BLOOD GAS pH 7.345 (7.350-7.450)
[2023-04-09] MEDS ORDERED: FENTANYL CITRATE/PF 50 MCG/ML VIAL ONE ×2 (07:15→07:36)
[2023-04-09 10:42] LABS: HEMATOCRIT 29.5 % (35.4-49); HEMOGLOBIN 9.3 GM/dL (11.7-16.9); MCH 26.3 pg (25.7-33.7); MCHC 31.4 g/dl (32.0-35.9); MEAN CELL VOLUME 83.7 fl (80-96); MEAN PLT VOLUME 7.6 fl (7.5-11.1); PLATELET COUNT 165 10^3/uL (134-434); RBC 3.53 M/mm3 (4.00-5.60); RDW 14.4 % (11.9-15.9); WHITE BLOOD COUNT 18.7 K/mm3 (4.0-10.0)
[2023-04-09 10:58] LABS: CHLORIDE 98 mmol/L (98-107); POTASSIUM 4.8 mmol/L (3.5-5.1); SODIUM 132 mmol/L (136-145)
[2023-04-09 11:00] LABS: ALBUMIN 1.5 g/dl (3.4-5.0); CALCIUM 7.7 mg/dL (8.5-10.1)
[2023-04-09 11:01] LABS: ANION GAP 12 mmol/L (4-13); BLOOD UREA NITROGEN 53.6 mg/dL (7-18); CO2 22 mmol/L (21-32); GLUCOSE,RANDOM 103 mg/dL (74-106); MAGNESIUM 2.2 mg/dL (1.8-2.4)
[2023-04-09 11:03] LABS: CREATININE 4.8 mg/dL (0.55-1.3); PHOSPHOROUS 4.6 mg/dL (2.5-4.9); SGOT/AST 24 U/L (15-37)
[2023-04-09 11:05] LABS: BILIRUBIN,TOTAL 0.5 mg/dL (0.2-1); TOT PROT 6.2 g/dl (6.4-8.2)
[2023-04-09 11:06] LABS: ALK PHOS 56 U/L (45-117)
[2023-04-09 11:07] LABS: SGPT/ALT < 6 U/L (13-61)
[2023-04-09] MEDS: PANTOPRAZOLE SODIUM 40 MG VIAL IVPUSH SCH (11:16)
[2023-04-09] MEDS: POLYETHYLENE GLYCOL (HEALTHYLAX) 3350 17 GM PACKET PO SCH (11:16)
[2023-04-09] MEDS: MUPIROCIN 2% TOPICAL OINTMENT FOR DECOLONIZATION NS SCH ×2 (11:17→21:16)
[2023-04-09] MEDS: SODIUM BICARBONATE 8.4% - 150 MEQ in DEXTROSE 5%-WATER - 950 ML IVPB SCH (11:17)
[2023-04-09] MEDS: TAMSULOSIN HCL 0.4 MG CAP PO SCH (11:17)
[2023-04-09] MEDS ORDERED: SODIUM CHLORIDE 1,000 ML IV STA ×2 (11:25→17:06)
[2023-04-09 11:36] LABS: LACTIC ACID 4.7 mmol/L (0.4-2.0)
[2023-04-09] MEDS ORDERED: VANCOMYCIN/WATER FOR INJ (PEG) 1,000 MG/200 ML BAG IVPB ONE (12:35)
[2023-04-09] MEDS: SODIUM ZIRCONIUM CYCLOSILICATE (LOKELMA) 5 GM PACKET PO SCH (13:17)
[2023-04-09] MEDS ORDERED: NOREPINEPHRINE BITARTRATE 4 MG/4 ML ML IV ONE (13:33)
[2023-04-09 18:40] LABS: POTASSIUM 4.2 mmol/L (3.5-5.1)
[2023-04-09 18:42] LABS: CALCIUM 7.3 mg/dL (8.5-10.1)
[2023-04-09 18:43] LABS: BLOOD UREA NITROGEN 42.1 mg/dL (7-18)
[2023-04-09 18:45] LABS: CREATININE 3.3 mg/dL (0.55-1.3)
[2023-04-09 18:46] LABS: LACTIC ACID 2.4 mmol/L (0.4-2.0)
[2023-04-09] MEDS: CHLORHEXIDINE GLUCONATE 4% CLEANSER FOR DECOLONIZATION TP SCH (21:15)
[2023-04-10] MEDS: VASOPRESSIN 40 UNITS/100 ML BAG IV SCH ×2 (01:20→15:50)
[2023-04-10] MEDS: PIPERACILLIN/TAZOB 2.25 GM 2.25 GM in DEXTROSE 5%-WATER - 50 ML IVPB SCH ×3 (02:30→17:29)
[2023-04-10] MEDS: SODIUM BICARBONATE 8.4% - 150 MEQ in DEXTROSE 5%-WATER - 950 ML IVPB SCH (02:30)
[2023-04-10] MEDS: NOREPINEPHRINE 0.9 % NACL 8 MG/250 ML BAG IVPB SCH ×2 (04:43→18:17)
[2023-04-10 07:01] LABS: HEMATOCRIT 25.9 % (35.4-49); HEMOGLOBIN 8.1 GM/dL (11.7-16.9); MCH 26.1 pg (25.7-33.7); MCHC 31.4 g/dl (32.0-35.9); MEAN PLT VOLUME 7.3 fl (7.5-11.1); PLATELET COUNT 143 10^3/uL (134-434); RBC 3.12 M/mm3 (4.00-5.60); RDW 14.4 % (11.9-15.9); WHITE BLOOD COUNT 23.4 K/mm3 (4.0-10.0)
[2023-04-10 07:20] LABS: CHLORIDE 105 mmol/L (98-107); POTASSIUM 3.5 mmol/L (3.5-5.1); SODIUM 141 mmol/L (136-145)
[2023-04-10 07:21] LABS: CALCIUM 7.5 mg/dL (8.5-10.1)
[2023-04-10 07:22] LABS: ALBUMIN 1.2 g/dl (3.4-5.0); ANION GAP 7 mmol/L (4-13); CO2 29 mmol/L (21-32); GLUCOSE,RANDOM 114 mg/dL (74-106); MAGNESIUM 1.7 mg/dL (1.8-2.4)
[2023-04-10 07:26] LABS: PHOSPHOROUS 3.5 mg/dL (2.5-4.9); SGOT/AST 45 U/L (15-37)
[2023-04-10 07:27] LABS: BILIRUBIN,TOTAL 0.4 mg/dL (0.2-1); TOT PROT 5.3 g/dl (6.4-8.2)
[2023-04-10 07:28] LABS: ALK PHOS 53 U/L (45-117)
[2023-04-10 07:54] LABS: SGPT/ALT < 6 U/L (13-61)
[2023-04-10] MEDS ORDERED: MAGNESIUM 2GM/50ML STERILE WATER IVPB IVPB ONE (09:00)
[2023-04-10] MEDS: PANTOPRAZOLE SODIUM 40 MG VIAL IVPUSH SCH (10:03)
[2023-04-10] MEDS: SODIUM ZIRCONIUM CYCLOSILICATE (LOKELMA) 5 GM PACKET PO SCH ×2 (10:04→15:49)
[2023-04-10] MEDS: POLYETHYLENE GLYCOL (HEALTHYLAX) 3350 17 GM PACKET PO SCH (10:04)
[2023-04-10] MEDS: MUPIROCIN 2% TOPICAL OINTMENT FOR DECOLONIZATION NS SCH ×2 (10:05→21:25)
[2023-04-10] MEDS ORDERED: SODIUM CHLORIDE 0.45% 1,000 ML IV SCH (14:30)
[2023-04-10] MEDS: AMINO ACIDS 4.25%/D5W 1,000 ML IV SCH (14:31)
[2023-04-10] MEDS: ONDANSETRON 4 MG/2 ML VIAL IVPUSH PRN ×2 (17:41→23:54)
[2023-04-10] MEDS ORDERED: PIPERACILLIN/TAZOBACTAM 2.25 GM VIAL IVPB ONE (21:18)
[2023-04-10] MEDS: HEPARIN NA (PORCINE) 5,000 UNITS/ML 1ML VIAL SQ SCH (21:25)
[2023-04-10] MEDS: CHLORHEXIDINE GLUCONATE 4% CLEANSER FOR DECOLONIZATION TP SCH (21:26)
[2023-04-11] MEDS: VASOPRESSIN 40 UNITS/100 ML BAG IV SCH (01:22)
[2023-04-11] MEDS: PIPERACILLIN/TAZOB 2.25 GM 2.25 GM in DEXTROSE 5%-WATER - 50 ML IVPB SCH ×3 (01:23→17:04)
[2023-04-11] MEDS: ACETAMINOPHEN 1000 MG/100 ML BAG IVPB PRN ×2 (05:59→20:59)
[2023-04-11 07:01] LABS: CHLORIDE 105 mmol/L (98-107); POTASSIUM 3.1 mmol/L (3.5-5.1); SODIUM 139 mmol/L (136-145)
[2023-04-11 07:07] LABS: ALBUMIN 1.2 g/dl (3.4-5.0); ANION GAP 6 mmol/L (4-13); BLOOD UREA NITROGEN 19.2 mg/dL (7-18); CALCIUM 7.3 mg/dL (8.5-10.1); CO2 28 mmol/L (21-32); GLUCOSE,RANDOM 132 mg/dL (74-106); MAGNESIUM 1.7 mg/dL (1.8-2.4)
[2023-04-11 07:09] LABS: PHOSPHOROUS 3.2 mg/dL (2.5-4.9)
[2023-04-11 07:11] LABS: BILIRUBIN,TOTAL 0.4 mg/dL (0.2-1); SGOT/AST 39 U/L (15-37); TOT PROT 5.1 g/dl (6.4-8.2)
[2023-04-11 07:13] LABS: ALK PHOS 56 U/L (45-117); HEMATOCRIT 25.8 % (35.4-49); MCH 26.1 pg (25.7-33.7); MEAN CELL VOLUME 84.1 fl (80-96); MEAN PLT VOLUME 7.6 fl (7.5-11.1); PLATELET COUNT 111 10^3/uL (134-434); RBC 3.07 M/mm3 (4.00-5.60); RDW 14.3 % (11.9-15.9); WHITE BLOOD COUNT 21.2 K/mm3 (4.0-10.0)
[2023-04-11] MEDS ORDERED: POTASSIUM CHLORIDE ORAL LIQUID 20 MEQ/15 ML PO ONE (07:18)
[2023-04-11] MEDS ORDERED: MAGNESIUM SULF 50% (8.12 MEQ/2 ML-1 GM VIAL) IVPB ONE (07:19)
[2023-04-11 07:22] LABS: SGPT/ALT < 6 U/L (13-61)
[2023-04-11 08:59] LABS: ANISOCYTOSIS 0; MACROCYTOSIS 0
[2023-04-11] MEDS: SODIUM ZIRCONIUM CYCLOSILICATE (LOKELMA) 5 GM PACKET PO SCH (09:19)
[2023-04-11] MEDS: PANTOPRAZOLE SODIUM 40 MG VIAL IVPUSH SCH (09:19)
[2023-04-11] MEDS: HEPARIN NA (PORCINE) 5,000 UNITS/ML 1ML VIAL SQ SCH (09:19)
[2023-04-11] MEDS: MUPIROCIN 2% TOPICAL OINTMENT FOR DECOLONIZATION NS SCH ×2 (09:20→21:00)
[2023-04-11] MEDS: POLYETHYLENE GLYCOL (HEALTHYLAX) 3350 17 GM PACKET PO SCH (09:52)
[2023-04-11] MEDS: AMINO ACIDS 4.25%/D5W 1,000 ML IV SCH ×2 (10:03→13:23)
[2023-04-11] MEDS: NOREPINEPHRINE 0.9 % NACL 8 MG/250 ML BAG IVPB SCH (12:00)
[2023-04-11] MEDS: SODIUM CHLORIDE 0.45% 1,000 ML IV SCH (13:23)
[2023-04-11] MEDS ORDERED: TRIMETHOBENZAMIDE HCL 200MG/2ML INJ IM PRN (18:27)
[2023-04-11] MEDS: CHLORHEXIDINE GLUCONATE 4% CLEANSER FOR DECOLONIZATION TP SCH (21:00)
[2023-04-11] MEDS ORDERED: MIDAZOLAM HCL 2 MG/2 ML SINGLE DOSE VIAL ONE (21:31)
[2023-04-12] MEDS: VASOPRESSIN 40 UNITS/100 ML BAG IV SCH (02:05)
[2023-04-12] MEDS: PIPERACILLIN/TAZOB 2.25 GM 2.25 GM in DEXTROSE 5%-WATER - 50 ML IVPB SCH ×3 (02:06→17:01)
[2023-04-12] MEDS: ACETAMINOPHEN 1000 MG/100 ML BAG IVPB PRN ×3 (06:00→21:00)
[2023-04-12] MEDS: ONDANSETRON 4 MG/2 ML VIAL IVPUSH PRN (06:00)
[2023-04-12 07:10] LABS: BASO % 0.2 % (0-2.0); EOS % 0.9 % (0-4.5); HEMATOCRIT 26.4 % (35.4-49); LYMPH % 5.9 % (8-40); MCH 25.5 pg (25.7-33.7); MCHC 30.3 g/dl (32.0-35.9); MEAN CELL VOLUME 83.9 fl (80-96); MEAN PLT VOLUME 7.7 fl (7.5-11.1); PLATELET COUNT 115 10^3/uL (134-434); RBC 3.14 M/mm3 (4.00-5.60); RDW 14.5 % (11.9-15.9); WHITE BLOOD COUNT 12.7 K/mm3 (4.0-10.0)
[2023-04-12 07:27] LABS: CALCIUM 7.8 mg/dL (8.5-10.1)
[2023-04-12 07:28] LABS: ALBUMIN 1.2 g/dl (3.4-5.0); BLOOD UREA NITROGEN 16.9 mg/dL (7-18); MAGNESIUM 2.2 mg/dL (1.8-2.4)
[2023-04-12 07:31] LABS: CREATININE 0.8 mg/dL (0.55-1.3); INR 1.18 (0.83-1.09); PHOSPHOROUS 3.6 mg/dL (2.5-4.9); PROTHROMBIN TIME (PATIENT) 13.7 SEC (9.7-13.0)
[2023-04-12 07:32] LABS: BILIRUBIN,TOTAL 0.4 mg/dL (0.2-1); TOT PROT 5.5 g/dl (6.4-8.2)
[2023-04-12 07:34] LABS: ACTIVATED PTT 34.2 SECONDS (25.2-36.5)
[2023-04-12] MEDS ORDERED: POTASSIUM CHLORIDE ORAL LIQUID 20 MEQ/15 ML PO ONE (08:03)
[2023-04-12] MEDS ORDERED: SODIUM CHLORIDE 250 ML IV STA (08:05)
[2023-04-12] MEDS ORDERED: KCL 10 MEQ IVPB 10 MEQ/100 ML INFUS.BAG IVPB SCH (08:15)
[2023-04-12] MEDS: KCL 10 MEQ IVPB 10 MEQ/100 ML INFUS.BAG IVPB SCH ×3 (08:27→10:31)
[2023-04-12] MEDS: POLYETHYLENE GLYCOL (HEALTHYLAX) 3350 17 GM PACKET PO SCH (09:25)
[2023-04-12] MEDS: PANTOPRAZOLE SODIUM 40 MG VIAL IVPUSH SCH (09:25)
[2023-04-12] MEDS ORDERED: AMINO ACIDS 4.25%/D5W 1,000 ML IV SCH (10:00)
[2023-04-12] MEDS: POTASSIUM CHLORIDE 20 MEQ in AMINO ACIDS 4.25%/D5W 1,000 ML IV SCH (11:16)
[2023-04-12] MEDS: NOREPINEPHRINE 0.9 % NACL 8 MG/250 ML BAG IVPB SCH (13:44)
[2023-04-12] MEDS: SODIUM CHLORIDE 0.45% 1,000 ML IV SCH (14:58)
[2023-04-12] MEDS: DOCUSATE SODIUM 100 MG CAPSULE (FP) PO PRN ×2 (15:10→21:00)
[2023-04-12] MEDS: CHLORHEXIDINE GLUCONATE 4% CLEANSER FOR DECOLONIZATION TP SCH (21:00)
[2023-04-12] MEDS: ONDANSETRON 4 MG/2 ML VIAL IVPB PRN (21:01)
[2023-04-13] MEDS: VASOPRESSIN 40 UNITS/100 ML BAG IV SCH (01:12)
[2023-04-13] MEDS: PIPERACILLIN/TAZOB 2.25 GM 2.25 GM in DEXTROSE 5%-WATER - 50 ML IVPB SCH ×3 (01:12→17:01)
[2023-04-13] MEDS: ACETAMINOPHEN 1000 MG/100 ML BAG IVPB PRN (05:00)
[2023-04-13 07:21] LABS: BASO % 0.2 % (0-2.0); EOS % 2.5 % (0-4.5); HEMOGLOBIN 8.1 GM/dL (11.7-16.9); LYMPH % 5.5 % (8-40); MCH 26.2 pg (25.7-33.7); MEAN CELL VOLUME 84.5 fl (80-96); MEAN PLT VOLUME 8.1 fl (7.5-11.1); MONO % 5.6 % (3.8-10.2); NEUT % 86.2 % (42.8-82.8); PLATELET COUNT 144 10^3/uL (134-434); RBC 3.08 M/mm3 (4.00-5.60); RDW 14.5 % (11.9-15.9); WHITE BLOOD COUNT 13.1 K/mm3 (4.0-10.0)
[2023-04-13 07:43] LABS: CHLORIDE 104 mmol/L (98-107); POTASSIUM 3.4 mmol/L (3.5-5.1); SODIUM 139 mmol/L (136-145)
[2023-04-13 07:53] LABS: CALCIUM 7.4 mg/dL (8.5-10.1)
[2023-04-13 07:54] LABS: ALBUMIN 1.2 g/dl (3.4-5.0); ANION GAP 6 mmol/L (4-13); BLOOD UREA NITROGEN 15.2 mg/dL (7-18); CO2 28 mmol/L (21-32); GLUCOSE,RANDOM 89 mg/dL (74-106); MAGNESIUM 1.7 mg/dL (1.8-2.4)
[2023-04-13 07:57] LABS: CREATININE 0.7 mg/dL (0.55-1.3); PHOSPHOROUS 3.2 mg/dL (2.5-4.9); SGOT/AST 19 U/L (15-37)
[2023-04-13] MEDS ORDERED: morphine SULFATE 4 MG/ML VIAL IVPUSH ONE (07:57)
[2023-04-13 07:58] LABS: TOT PROT 5.3 g/dl (6.4-8.2)
[2023-04-13 07:59] LABS: BILIRUBIN,TOTAL 0.3 mg/dL (0.2-1)
[2023-04-13 08:00] LABS: ALK PHOS 47 U/L (45-117)
[2023-04-13 08:09] LABS: SGPT/ALT < 6 U/L (13-61)
[2023-04-13] MEDS: PANTOPRAZOLE SODIUM 40 MG VIAL IVPUSH SCH (09:01)
[2023-04-13] MEDS: POLYETHYLENE GLYCOL (HEALTHYLAX) 3350 17 GM PACKET PO SCH (09:02)
[2023-04-13] MEDS ORDERED: LIDOCAINE HCL 2% JELLY 10 ML CARTRIDGE TP ONE (13:00)
[2023-04-13] MEDS: POTASSIUM CHLORIDE 20 MEQ in AMINO ACIDS 4.25%/D5W 1,000 ML IV SCH (14:06)
[2023-04-13] MEDS: NOREPINEPHRINE 0.9 % NACL 8 MG/250 ML BAG IVPB SCH (14:07)
[2023-04-13] MEDS ORDERED: MAGNESIUM SULF 50% (8.12 MEQ/2 ML-1 GM VIAL) IVPB ONE (14:30)
[2023-04-13] MEDS: KCL 10 MEQ IVPB 10 MEQ/100 ML INFUS.BAG IVPB SCH ×2 (14:58→16:03)
[2023-04-13] MEDS: CHLORHEXIDINE GLUCONATE 4% CLEANSER FOR DECOLONIZATION TP SCH (22:38)
[2023-04-14] MEDS: ONDANSETRON 4 MG/2 ML VIAL IVPB PRN (01:58)
[2023-04-14] MEDS: ACETAMINOPHEN 1000 MG/100 ML BAG IVPB PRN ×2 (01:58→21:33)
[2023-04-14] MEDS: PIPERACILLIN/TAZOB 2.25 GM 2.25 GM in DEXTROSE 5%-WATER - 50 ML IVPB SCH ×3 (02:43→18:39)
[2023-04-14 07:25] LABS: BASO % 0.2 % (0-2.0); HEMATOCRIT 27.5 % (35.4-49); HEMOGLOBIN 8.5 GM/dL (11.7-16.9); LYMPH % 5.3 % (8-40); MCH 26.1 pg (25.7-33.7); MEAN CELL VOLUME 84.3 fl (80-96); MEAN PLT VOLUME 8.3 fl (7.5-11.1); MONO % 4.6 % (3.8-10.2); NEUT % 87.9 % (42.8-82.8); PLATELET COUNT 154 10^3/uL (134-434); RBC 3.26 M/mm3 (4.00-5.60); RDW 14.4 % (11.9-15.9); WHITE BLOOD COUNT 16.6 K/mm3 (4.0-10.0)
[2023-04-14 08:54] LABS: CHLORIDE 103 mmol/L (98-107); POTASSIUM 3.7 mmol/L (3.5-5.1); SODIUM 138 mmol/L (136-145)
[2023-04-14 09:01] LABS: CALCIUM 7.4 mg/dL (8.5-10.1)
[2023-04-14 09:02] LABS: ALBUMIN 1.2 g/dl (3.4-5.0); ANION GAP 5 mmol/L (4-13); BLOOD UREA NITROGEN 13.6 mg/dL (7-18); CO2 30 mmol/L (21-32); GLUCOSE,RANDOM 97 mg/dL (74-106); MAGNESIUM 1.9 mg/dL (1.8-2.4)
[2023-04-14 09:04] LABS: CREATININE 0.7 mg/dL (0.55-1.3)
[2023-04-14 09:05] LABS: PHOSPHOROUS 2.8 mg/dL (2.5-4.9); SGOT/AST 13 U/L (15-37)
[2023-04-14 09:06] LABS: ALK PHOS 47 U/L (45-117); BILIRUBIN,TOTAL 0.4 mg/dL (0.2-1); TOT PROT 5.4 g/dl (6.4-8.2)
[2023-04-14 09:09] LABS: SGPT/ALT < 6 U/L (13-61)
[2023-04-14] MEDS ORDERED: LIDOCAINE HCL 2% JELLY 10 ML CARTRIDGE NR ONE ×2 (09:30→10:00)
[2023-04-14] MEDS ORDERED: LIDOCAINE HCL 2% 100 MG/5 ML DISP.SYRIN ONE (09:45)
[2023-04-14] MEDS ORDERED: VASOPRESSIN 20 UNITS/ML VIAL IV ONE (10:35)
[2023-04-14] MEDS: PANTOPRAZOLE SODIUM 40 MG VIAL IVPUSH SCH (10:45)
[2023-04-14 11:40] LABS: CHOLESTEROL 51 mg/dL (50-200)
[2023-04-14 11:41] LABS: LDL CHOLESTEROL (ONLY SJRH) 21 mg/dL (5-100)
[2023-04-14 11:43] LABS: HDL CHOLESTEROL 18 mg/dL (40-60)
[2023-04-14] MEDS: POLYETHYLENE GLYCOL (HEALTHYLAX) 3350 17 GM PACKET PO SCH (11:56)
[2023-04-14] MEDS: VASOPRESSIN 40 UNITS/100 ML BAG IV SCH (12:10)
[2023-04-14] MEDS: POTASSIUM CHLORIDE 20 MEQ in AMINO ACIDS 4.25%/D5W 1,000 ML IV SCH (14:00)
[2023-04-14] MEDS ORDERED: ACETAMINOPHEN 1000 MG/100 ML BAG IVPB ONE (14:15)
[2023-04-14] MEDS: CHLORHEXIDINE GLUCONATE 4% CLEANSER FOR DECOLONIZATION TP SCH (21:28)
[2023-04-14] MEDS: FAT EMUL/SOY/MCT/OLIV/FISH OIL 250 ML IV SCH (21:32)
[2023-04-14] MEDS ORDERED: SMOFLIPID - FAT EMUL/SOY/MCT/OLIV/FISH OIL 250 ML EMULSION IV SCH (22:00)
[2023-04-15] MEDS: PIPERACILLIN/TAZOB 2.25 GM 2.25 GM in DEXTROSE 5%-WATER - 50 ML IVPB SCH ×2 (01:28→10:10)
[2023-04-15 07:59] LABS: BASO % 0.4 % (0-2.0); EOS % 2.3 % (0-4.5); HEMATOCRIT 27.6 % (35.4-49); HEMOGLOBIN 8.5 GM/dL (11.7-16.9); LYMPH % 3.6 % (8-40); MCHC 30.8 g/dl (32.0-35.9); MEAN CELL VOLUME 84.5 fl (80-96); MEAN PLT VOLUME 8.5 fl (7.5-11.1); MONO % 3.7 % (3.8-10.2); PLATELET COUNT 168 10^3/uL (134-434); RBC 3.27 M/mm3 (4.00-5.60); RDW 14.5 % (11.9-15.9); WHITE BLOOD COUNT 14.5 K/mm3 (4.0-10.0)
[2023-04-15 08:00] LABS: CHLORIDE 105 mmol/L (98-107); POTASSIUM 3.4 mmol/L (3.5-5.1); SODIUM 140 mmol/L (136-145)
[2023-04-15 08:06] LABS: CALCIUM 7.5 mg/dL (8.5-10.1)
[2023-04-15 08:07] LABS: ALBUMIN 1.2 g/dl (3.4-5.0); ANION GAP 5 mmol/L (4-13); BLOOD UREA NITROGEN 12.8 mg/dL (7-18); CO2 30 mmol/L (21-32); GLUCOSE,RANDOM 117 mg/dL (74-106); MAGNESIUM 1.7 mg/dL (1.8-2.4)
[2023-04-15 08:10] LABS: CREATININE 0.7 mg/dL (0.55-1.3); PHOSPHOROUS 2.6 mg/dL (2.5-4.9); SGOT/AST 13 U/L (15-37)
[2023-04-15 08:11] LABS: BILIRUBIN,TOTAL 0.3 mg/dL (0.2-1)
[2023-04-15 08:12] LABS: TOT PROT 5.8 g/dl (6.4-8.2)
[2023-04-15 08:13] LABS: ALK PHOS 45 U/L (45-117)
[2023-04-15 08:19] LABS: SGPT/ALT < 6 U/L (13-61)
[2023-04-15] MEDS ORDERED: MAGNESIUM SULFATE IN WATER 2 GM/50 ML IVPB IVPB ONE (09:45)
[2023-04-15] MEDS: KCL 10 MEQ IVPB 10 MEQ/100 ML INFUS.BAG IVPB SCH ×3 (10:05→12:24)
[2023-04-15] MEDS: ACETAMINOPHEN 1000 MG/100 ML BAG IVPB PRN ×2 (10:09→19:10)
[2023-04-15] MEDS: PANTOPRAZOLE SODIUM 40 MG VIAL IVPUSH SCH (10:10)
[2023-04-15] MEDS: POLYETHYLENE GLYCOL (HEALTHYLAX) 3350 17 GM PACKET PO SCH (10:36)
[2023-04-15] MEDS: VASOPRESSIN 40 UNITS/100 ML BAG IV SCH (13:10)
[2023-04-15] MEDS: POTASSIUM CHLORIDE 20 MEQ in AMINO ACIDS 4.25%/D5W 1,000 ML IV SCH (13:11)
[2023-04-15] MEDS: SODIUM CHLORIDE 0.45% 1,000 ML IV SCH (13:12)
[2023-04-15] MEDS: PIPERACILLIN/TAZOB 4.5 GM 4.5 GM in DEXTROSE 5%-WATER 100 ML IVPB SCH (19:10)
[2023-04-15] MEDS: CHLORHEXIDINE GLUCONATE 4% CLEANSER FOR DECOLONIZATION TP SCH (21:51)
[2023-04-15] MEDS: FAT EMUL/SOY/MCT/OLIV/FISH OIL 250 ML IV SCH (21:51)
[2023-04-16] MEDS: PIPERACILLIN/TAZOB 4.5 GM 4.5 GM in DEXTROSE 5%-WATER 100 ML IVPB SCH ×3 (02:40→17:10)
[2023-04-16] MEDS: ACETAMINOPHEN 1000 MG/100 ML BAG IVPB PRN ×2 (03:14→09:55)
[2023-04-16 06:31] LABS: HEMATOCRIT 24.1 % (35.4-49); HEMOGLOBIN 7.5 GM/dL (11.7-16.9); MCH 26.1 pg (25.7-33.7); MEAN CELL VOLUME 84.3 fl (80-96); MEAN PLT VOLUME 8.4 fl (7.5-11.1); PLATELET COUNT 159 10^3/uL (134-434); RBC 2.85 M/mm3 (4.00-5.60); RDW 14.6 % (11.9-15.9); WHITE BLOOD COUNT 11.8 K/mm3 (4.0-10.0)
[2023-04-16 06:52] LABS: POTASSIUM 3.5 mmol/L (3.5-5.1)
[2023-04-16 06:54] LABS: BLOOD UREA NITROGEN 11.7 mg/dL (7-18); MAGNESIUM 1.8 mg/dL (1.8-2.4)
[2023-04-16 06:57] LABS: CREATININE 0.7 mg/dL (0.55-1.3); PHOSPHOROUS 2.6 mg/dL (2.5-4.9)
[2023-04-16] MEDS: POLYETHYLENE GLYCOL (HEALTHYLAX) 3350 17 GM PACKET PO SCH (09:09)
[2023-04-16] MEDS: PANTOPRAZOLE SODIUM 40 MG VIAL IVPUSH SCH (09:15)
[2023-04-16] MEDS ORDERED: MAGNESIUM 1GM/D5W - 1 GM/100 ML IVPB IVPB ONE (09:30)
[2023-04-16] MEDS: KCL 10 MEQ IVPB 10 MEQ/100 ML INFUS.BAG IVPB SCH ×2 (11:36→12:15)
[2023-04-16] MEDS: POTASSIUM CHLORIDE 20 MEQ in AMINO ACIDS 4.25%/D5W 1,000 ML IV SCH (12:14)
[2023-04-16] MEDS: SODIUM CHLORIDE 0.45% 1,000 ML IV SCH (12:22)
[2023-04-16] MEDS: VASOPRESSIN 40 UNITS/100 ML BAG IV SCH (19:07)
[2023-04-16] MEDS: FAT EMUL/SOY/MCT/OLIV/FISH OIL 250 ML IV SCH (21:02)
[2023-04-16] MEDS: CHLORHEXIDINE GLUCONATE 4% CLEANSER FOR DECOLONIZATION TP SCH (21:02)
[2023-04-17] MEDS: MIDODRINE HCL 5 MG TABLET PO SCH ×5 (00:01→18:16)
[2023-04-17] MEDS: PIPERACILLIN/TAZOB 4.5 GM 4.5 GM in DEXTROSE 5%-WATER 100 ML IVPB SCH ×3 (01:14→18:16)
[2023-04-17] MEDS: ACETAMINOPHEN 1000 MG/100 ML BAG IVPB PRN ×2 (02:16→11:02)
[2023-04-17] MEDS: SODIUM CHLORIDE 0.45% 1,000 ML IV SCH (05:48)
[2023-04-17] MEDS: POTASSIUM CHLORIDE 20 MEQ in AMINO ACIDS 4.25%/D5W 1,000 ML IV SCH ×2 (05:49→13:11)
[2023-04-17 07:25] LABS: BASO % 0.2 % (0-2.0); EOS % 2.5 % (0-4.5); HEMATOCRIT 26.1 % (35.4-49); HEMOGLOBIN 8.2 GM/dL (11.7-16.9); LYMPH % 6.9 % (8-40); MCH 26.3 pg (25.7-33.7); MCHC 31.4 g/dl (32.0-35.9); MEAN PLT VOLUME 8.7 fl (7.5-11.1); MONO % 5.8 % (3.8-10.2); NEUT % 84.6 % (42.8-82.8); PLATELET COUNT 210 10^3/uL (134-434); RDW 14.9 % (11.9-15.9); WHITE BLOOD COUNT 13.5 K/mm3 (4.0-10.0)
[2023-04-17 07:28] LABS: CHLORIDE 106 mmol/L (98-107); POTASSIUM 3.4 mmol/L (3.5-5.1); SODIUM 141 mmol/L (136-145)
[2023-04-17 07:31] LABS: ALBUMIN 1.2 g/dl (3.4-5.0); ANION GAP 8 mmol/L (4-13); BLOOD UREA NITROGEN 10.5 mg/dL (7-18); CALCIUM 7.3 mg/dL (8.5-10.1); CO2 27 mmol/L (21-32); GLUCOSE,RANDOM 94 mg/dL (74-106); MAGNESIUM 1.8 mg/dL (1.8-2.4)
[2023-04-17 07:34] LABS: CREATININE 0.7 mg/dL (0.55-1.3); PHOSPHOROUS 2.2 mg/dL (2.5-4.9); SGOT/AST 12 U/L (15-37)
[2023-04-17 07:36] LABS: BILIRUBIN,TOTAL 0.3 mg/dL (0.2-1); TOT PROT 6.3 g/dl (6.4-8.2)
[2023-04-17 07:37] LABS: ALK PHOS 43 U/L (45-117)
[2023-04-17 07:45] LABS: SGPT/ALT < 6 U/L (13-61)
[2023-04-17] MEDS ORDERED: MIDODRINE HCL 5 MG TABLET PO ONE (08:19)
[2023-04-17] MEDS ORDERED: KCL 10 MEQ IVPB 10 MEQ/100 ML INFUS.BAG IVPB SCH (08:45)
[2023-04-17] MEDS: POLYETHYLENE GLYCOL (HEALTHYLAX) 3350 17 GM PACKET PO SCH (09:46)
[2023-04-17] MEDS: PANTOPRAZOLE SODIUM 40 MG VIAL IVPUSH SCH (09:46)
[2023-04-17] MEDS ORDERED: LIDOCAINE HCL 2% JELLY 6 ML TP ONE (12:19)
[2023-04-17] MEDS ORDERED: POTASSIUM PHOSPHATE 15 MM in SODIUM CHLORIDE 100 ML IVPB ONE (18:45)
[2023-04-17] MEDS: CHLORHEXIDINE GLUCONATE 4% CLEANSER FOR DECOLONIZATION TP SCH (21:23)
[2023-04-17] MEDS: FAT EMUL/SOY/MCT/OLIV/FISH OIL 250 ML IV SCH (21:24)
[2023-04-18] MEDS: PIPERACILLIN/TAZOB 4.5 GM 4.5 GM in DEXTROSE 5%-WATER 100 ML IVPB SCH ×3 (01:15→17:25)
[2023-04-18] MEDS: SODIUM CHLORIDE 0.45% 1,000 ML IV SCH (01:15)
[2023-04-18 06:46] LABS: BASO % 0.3 % (0-2.0); LYMPH % 3.9 % (8-40); MCH 25.8 pg (25.7-33.7); MCHC 30.1 g/dl (32.0-35.9); MEAN CELL VOLUME 85.4 fl (80-96); MEAN PLT VOLUME 8.6 fl (7.5-11.1); MONO % 5.6 % (3.8-10.2); NEUT % 87.2 % (42.8-82.8); PLATELET COUNT 267 10^3/uL (134-434); RBC 3.51 M/mm3 (4.00-5.60); RDW 15.3 % (11.9-15.9); WHITE BLOOD COUNT 12.6 K/mm3 (4.0-10.0)
[2023-04-18 07:14] LABS: CHLORIDE 110 mmol/L (98-107); POTASSIUM 3.7 mmol/L (3.5-5.1); SODIUM 144 mmol/L (136-145)
[2023-04-18 07:19] LABS: ALBUMIN 1.3 g/dl (3.4-5.0); ANION GAP 3 mmol/L (4-13); BLOOD UREA NITROGEN 8.7 mg/dL (7-18); CO2 30 mmol/L (21-32); GLUCOSE,RANDOM 113 mg/dL (74-106); MAGNESIUM 1.5 mg/dL (1.8-2.4)
[2023-04-18 07:22] LABS: CREATININE 0.7 mg/dL (0.55-1.3); PHOSPHOROUS 3.1 mg/dL (2.5-4.9); SGOT/AST 12 U/L (15-37)
[2023-04-18 07:24] LABS: BILIRUBIN,TOTAL 0.3 mg/dL (0.2-1)
[2023-04-18 07:25] LABS: ALK PHOS 46 U/L (45-117)
[2023-04-18 07:30] LABS: SGPT/ALT < 6 U/L (13-61)
[2023-04-18] MEDS: HEPARIN NA (PORCINE) 5,000 UNITS/ML 1ML VIAL SQ SCH ×2 (09:54→23:00)
[2023-04-18] MEDS: PANTOPRAZOLE SODIUM 40 MG VIAL IVPUSH SCH (09:54)
[2023-04-18] MEDS: ACETAMINOPHEN 1000 MG/100 ML BAG IVPB PRN (09:54)
[2023-04-18] MEDS: POLYETHYLENE GLYCOL (HEALTHYLAX) 3350 17 GM PACKET PO SCH (09:54)
[2023-04-18] MEDS: MIDODRINE HCL 5 MG TABLET PO SCH ×3 (09:55→17:25)
[2023-04-18] MEDS: DOCUSATE SODIUM 100 MG CAPSULE (FP) PO PRN (09:58)
[2023-04-18] MEDS ORDERED: MAGNESIUM SULFATE IN WATER 2 GM/50 ML IVPB IVPB ONE (13:41)
[2023-04-18] MEDS: FUROSEMIDE 40 MG/4 ML INJECTABLE VIAL IVPUSH SCH (14:50)
[2023-04-18] MEDS: POTASSIUM CHLORIDE 20 MEQ in AMINO ACIDS 4.25%/D5W 1,000 ML IV SCH (14:50)
[2023-04-18] MEDS: CHLORHEXIDINE GLUCONATE 4% CLEANSER FOR DECOLONIZATION TP SCH (23:15)
[2023-04-18] MEDS: FAT EMUL/SOY/MCT/OLIV/FISH OIL 250 ML IV SCH (23:28)
[2023-04-19] MEDS: PIPERACILLIN/TAZOB 4.5 GM 4.5 GM in DEXTROSE 5%-WATER 100 ML IVPB SCH ×3 (01:40→18:00)
[2023-04-19] MEDS ORDERED: ALBUTEROL SO4 2.5/IPRATROPIUM 0.5 INH SOL 3 ML VIAL.NEB. NEB PRN (09:04)
[2023-04-19] MEDS: PANTOPRAZOLE SODIUM 40 MG VIAL IVPUSH SCH (09:30)
[2023-04-19] MEDS: MIDODRINE HCL 5 MG TABLET PO SCH ×3 (09:30→18:01)
[2023-04-19] MEDS: FUROSEMIDE 40 MG/4 ML INJECTABLE VIAL IVPUSH SCH (09:31)
[2023-04-19] MEDS: POLYETHYLENE GLYCOL (HEALTHYLAX) 3350 17 GM PACKET PO SCH (09:31)
[2023-04-19] MEDS: HEPARIN NA (PORCINE) 5,000 UNITS/ML 1ML VIAL SQ SCH ×2 (09:31→21:48)
[2023-04-19 09:35] LABS: BASO % 0.2 % (0-2.0); HEMATOCRIT 26.4 % (35.4-49); HEMOGLOBIN 8.5 GM/dL (11.7-16.9); LYMPH % 4.9 % (8-40); MCH 26.6 pg (25.7-33.7); MCHC 32.1 g/dl (32.0-35.9); MEAN CELL VOLUME 82.7 fl (80-96); MEAN PLT VOLUME 8.5 fl (7.5-11.1); MONO % 5.1 % (3.8-10.2); NEUT % 85.8 % (42.8-82.8); PLATELET COUNT 256 10^3/uL (134-434); RBC 3.19 M/mm3 (4.00-5.60); RDW 15.1 % (11.9-15.9); WHITE BLOOD COUNT 10.2 K/mm3 (4.0-10.0)
[2023-04-19 09:47] LABS: CHLORIDE 107 mmol/L (98-107); POTASSIUM 3.3 mmol/L (3.5-5.1); SODIUM 142 mmol/L (136-145)
[2023-04-19 09:49] LABS: CALCIUM 7.6 mg/dL (8.5-10.1)
[2023-04-19 09:50] LABS: ALBUMIN 1.2 g/dl (3.4-5.0); ANION GAP 6 mmol/L (4-13); CO2 30 mmol/L (21-32); GLUCOSE,RANDOM 83 mg/dL (74-106); MAGNESIUM 1.7 mg/dL (1.8-2.4)
[2023-04-19 09:52] LABS: CREATININE 0.8 mg/dL (0.55-1.3)
[2023-04-19 09:53] LABS: SGOT/AST 11 U/L (15-37)
[2023-04-19 09:54] LABS: BILIRUBIN,TOTAL 0.2 mg/dL (0.2-1); TOT PROT 6.7 g/dl (6.4-8.2)
[2023-04-19 09:55] LABS: ALK PHOS 43 U/L (45-117); SGPT/ALT < 6 U/L (13-61)
[2023-04-19] MEDS: ACETAMINOPHEN 1000 MG/100 ML BAG IVPB PRN ×2 (10:20→21:46)
[2023-04-19] MEDS: POTASSIUM CHLORIDE 20 MEQ in AMINO ACIDS 4.25%/D5W 1,000 ML IV SCH (14:26)
[2023-04-19] MEDS ORDERED: DOCUSATE SODIUM 100 MG CAPSULE (FP) PO PRN (15:54)
[2023-04-19] MEDS ORDERED: LIDOCAINE HCL 2% JELLY 10 ML CARTRIDGE NR ONE ×2 (15:54)
[2023-04-19] MEDS ORDERED: ONDANSETRON 4 MG/2 ML VIAL IVPB PRN (15:54)
[2023-04-19] MEDS ORDERED: TRIMETHOBENZAMIDE HCL 200MG/2ML INJ IM PRN (15:54)
[2023-04-19] MEDS ORDERED: FAT EMUL/SOY/MCT/OLIV/FISH OIL 250 ML IV SCH (22:00)
[2023-04-19] MEDS ORDERED: CHLORHEXIDINE GLUCONATE 4% CLEANSER FOR DECOLONIZATION TP SCH (22:00)
[2023-04-19] MEDS: FAT EMUL/SOY/MCT/OLIV/FISH OIL 250 ML IV SCH (22:36)
[2023-04-20] MEDS: PIPERACILLIN/TAZOB 4.5 GM 4.5 GM in DEXTROSE 5%-WATER 100 ML IVPB SCH ×3 (02:01→17:08)
[2023-04-20] MEDS: FUROSEMIDE 40 MG/4 ML INJECTABLE VIAL IVPUSH SCH (09:20)
[2023-04-20] MEDS: POLYETHYLENE GLYCOL (HEALTHYLAX) 3350 17 GM PACKET PO SCH (09:20)
[2023-04-20] MEDS: MIDODRINE HCL 5 MG TABLET PO SCH ×3 (09:20→17:08)
[2023-04-20] MEDS: PANTOPRAZOLE SODIUM 40 MG VIAL IVPUSH SCH (09:20)
[2023-04-20] MEDS: ACETAMINOPHEN 1000 MG/100 ML BAG IVPB PRN ×2 (09:21→17:55)
[2023-04-20] MEDS: HEPARIN NA (PORCINE) 5,000 UNITS/ML 1ML VIAL SQ SCH ×2 (09:21→21:59)
[2023-04-20 09:26] LABS: BASO % 0.2 % (0-2.0); EOS % 4.5 % (0-4.5); HEMATOCRIT 27.7 % (35.4-49); HEMOGLOBIN 8.7 GM/dL (11.7-16.9); LYMPH % 5.4 % (8-40); MCH 25.8 pg (25.7-33.7); MCHC 31.4 g/dl (32.0-35.9); MEAN CELL VOLUME 82.4 fl (80-96); MEAN PLT VOLUME 8.7 fl (7.5-11.1); MONO % 7.2 % (3.8-10.2); NEUT % 82.7 % (42.8-82.8); PLATELET COUNT 337 10^3/uL (134-434); RBC 3.37 M/mm3 (4.00-5.60); WHITE BLOOD COUNT 11.4 K/mm3 (4.0-10.0)
[2023-04-20 09:49] LABS: CHLORIDE 107 mmol/L (98-107); POTASSIUM 3.4 mmol/L (3.5-5.1); SODIUM 138 mmol/L (136-145)
[2023-04-20 09:50] LABS: CALCIUM 7.7 mg/dL (8.5-10.1)
[2023-04-20 09:51] LABS: ALBUMIN 1.4 g/dl (3.4-5.0); ANION GAP 2 mmol/L (4-13); BLOOD UREA NITROGEN 8.2 mg/dL (7-18); CO2 29 mmol/L (21-32); GLUCOSE,RANDOM 102 mg/dL (74-106)
[2023-04-20 09:54] LABS: CREATININE 0.8 mg/dL (0.55-1.3); SGOT/AST 14 U/L (15-37); SGPT/ALT < 6 U/L (13-61)
[2023-04-20 09:56] LABS: BILIRUBIN,TOTAL 0.3 mg/dL (0.2-1); TOT PROT 7.6 g/dl (6.4-8.2)
[2023-04-20 09:57] LABS: ALK PHOS 47 U/L (45-117)
[2023-04-20] MEDS: POTASSIUM CHLORIDE 20 MEQ in AMINO ACIDS 4.25%/D5W 1,000 ML IV SCH ×2 (11:30→20:32)
[2023-04-20] MEDS ORDERED: POTASSIUM CHLORIDE ORAL LIQUID 20 MEQ/15 ML PO ONE (17:09)
[2023-04-20] MEDS: FAT EMUL/SOY/MCT/OLIV/FISH OIL 250 ML IV SCH (22:00)
[2023-04-21] MEDS: PIPERACILLIN/TAZOB 4.5 GM 4.5 GM in DEXTROSE 5%-WATER 100 ML IVPB SCH ×3 (02:13→17:47)
[2023-04-21] MEDS: FUROSEMIDE 40 MG/4 ML INJECTABLE VIAL IVPUSH SCH (10:07)
[2023-04-21] MEDS: HEPARIN NA (PORCINE) 5,000 UNITS/ML 1ML VIAL SQ SCH ×2 (10:07→21:42)
[2023-04-21] MEDS: MIDODRINE HCL 5 MG TABLET PO SCH ×3 (10:10→17:48)
[2023-04-21] MEDS: POLYETHYLENE GLYCOL (HEALTHYLAX) 3350 17 GM PACKET PO SCH (10:24)
[2023-04-21] MEDS: PANTOPRAZOLE SODIUM 40 MG VIAL IVPUSH SCH (10:24)
[2023-04-21] MEDS: POTASSIUM CHLORIDE 20 MEQ in AMINO ACIDS 4.25%/D5W 1,000 ML IV SCH (14:31)
[2023-04-21] MEDS ORDERED: POTASSIUM CHLORIDE ORAL LIQUID 20 MEQ/15 ML PO ONE (16:56)
[2023-04-21] MEDS: ACETAMINOPHEN 1000 MG/100 ML BAG IVPB PRN (17:47)
[2023-04-21] MEDS: FAT EMUL/SOY/MCT/OLIV/FISH OIL 250 ML IV SCH (21:42)
[2023-04-22] MEDS: PIPERACILLIN/TAZOB 4.5 GM 4.5 GM in DEXTROSE 5%-WATER 100 ML IVPB SCH (01:11)
[2023-04-22] MEDS: POTASSIUM CHLORIDE 20 MEQ in AMINO ACIDS 4.25%/D5W 1,000 ML IV SCH ×3 (01:25→22:54)
[2023-04-22 08:54] LABS: HEMATOCRIT 27.6 % (35.4-49); HEMOGLOBIN 8.9 GM/dL (11.7-16.9); MCH 26.9 pg (25.7-33.7); MCHC 32.2 g/dl (32.0-35.9); MEAN CELL VOLUME 83.6 fl (80-96); MEAN PLT VOLUME 8.5 fl (7.5-11.1); PLATELET COUNT 370 10^3/uL (134-434); RDW 15.2 % (11.9-15.9)
[2023-04-22 09:22] LABS: POTASSIUM 3.8 mmol/L (3.5-5.1)
[2023-04-22 09:30] LABS: BLOOD UREA NITROGEN 9.7 mg/dL (7-18); CALCIUM 8.1 mg/dL (8.5-10.1)
[2023-04-22 09:31] LABS: MAGNESIUM 1.2 mg/dL (1.8-2.4)
[2023-04-22 09:33] LABS: PHOSPHOROUS 2.7 mg/dL (2.5-4.9)
[2023-04-22 09:34] LABS: CREATININE 0.9 mg/dL (0.55-1.3)
[2023-04-22] MEDS: PANTOPRAZOLE SODIUM 40 MG VIAL IVPUSH SCH (10:53)
[2023-04-22] MEDS: FUROSEMIDE 40 MG/4 ML INJECTABLE VIAL IVPUSH SCH (10:56)
[2023-04-22] MEDS: HEPARIN NA (PORCINE) 5,000 UNITS/ML 1ML VIAL SQ SCH ×2 (10:57→21:34)
[2023-04-22] MEDS: POLYETHYLENE GLYCOL (HEALTHYLAX) 3350 17 GM PACKET PO SCH (10:59)
[2023-04-22] MEDS: ACETAMINOPHEN 1000 MG/100 ML BAG IVPB PRN ×2 (10:59→19:39)
[2023-04-22] MEDS: MIDODRINE HCL 5 MG TABLET PO SCH ×3 (11:52→17:30)
[2023-04-22] MEDS: FAT EMUL/SOY/MCT/OLIV/FISH OIL 250 ML IV SCH (21:34)
[2023-04-23] MEDS: PANTOPRAZOLE SODIUM 40 MG VIAL IVPUSH SCH (09:45)
[2023-04-23] MEDS: FUROSEMIDE 40 MG/4 ML INJECTABLE VIAL IVPUSH SCH (09:45)
[2023-04-23] MEDS: POLYETHYLENE GLYCOL (HEALTHYLAX) 3350 17 GM PACKET PO SCH (09:45)
[2023-04-23] MEDS: HEPARIN NA (PORCINE) 5,000 UNITS/ML 1ML VIAL SQ SCH ×2 (09:46→23:55)
[2023-04-23] MEDS: MIDODRINE HCL 5 MG TABLET PO SCH ×3 (09:47→18:47)
[2023-04-23] MEDS: POTASSIUM CHLORIDE 20 MEQ in AMINO ACIDS 4.25%/D5W 1,000 ML IV SCH (14:31)
[2023-04-23] MEDS: FAT EMUL/SOY/MCT/OLIV/FISH OIL 250 ML IV SCH (23:55)
[2023-04-24] MEDS: POTASSIUM CHLORIDE 20 MEQ in AMINO ACIDS 4.25%/D5W 1,000 ML IV SCH ×2 (02:19→12:36)
[2023-04-24 09:13] LABS: BASO % 0.4 % (0-2.0); EOS % 6.8 % (0-4.5); HEMATOCRIT 25.8 % (35.4-49); HEMOGLOBIN 8.3 GM/dL (11.7-16.9); LYMPH % 11.8 % (8-40); MCH 26.7 pg (25.7-33.7); MCHC 32.1 g/dl (32.0-35.9); MEAN CELL VOLUME 83.1 fl (80-96); MEAN PLT VOLUME 8.2 fl (7.5-11.1); MONO % 9.6 % (3.8-10.2); NEUT % 71.4 % (42.8-82.8); PLATELET COUNT 364 10^3/uL (134-434); RDW 14.9 % (11.9-15.9); WHITE BLOOD COUNT 8.3 K/mm3 (4.0-10.0)
[2023-04-24 09:39] LABS: CHLORIDE 105 mmol/L (98-107); POTASSIUM 3.6 mmol/L (3.5-5.1); SODIUM 140 mmol/L (136-145)
[2023-04-24] MEDS: FUROSEMIDE 40 MG/4 ML INJECTABLE VIAL IVPUSH SCH (09:43)
[2023-04-24] MEDS: PANTOPRAZOLE SODIUM 40 MG VIAL IVPUSH SCH (09:43)
[2023-04-24] MEDS: HEPARIN NA (PORCINE) 5,000 UNITS/ML 1ML VIAL SQ SCH ×2 (09:43→21:26)
[2023-04-24] MEDS: POLYETHYLENE GLYCOL (HEALTHYLAX) 3350 17 GM PACKET PO SCH (09:43)
[2023-04-24] MEDS: MIDODRINE HCL 5 MG TABLET PO SCH ×3 (09:43→17:33)
[2023-04-24 09:46] LABS: CALCIUM 8.2 mg/dL (8.5-10.1)
[2023-04-24 09:47] LABS: ALBUMIN 1.4 g/dl (3.4-5.0); ANION GAP 6 mmol/L (4-13); CO2 29 mmol/L (21-32); GLUCOSE,RANDOM 104 mg/dL (74-106)
[2023-04-24 09:50] LABS: CREATININE 0.7 mg/dL (0.55-1.3); SGOT/AST 17 U/L (15-37)
[2023-04-24 09:52] LABS: BILIRUBIN,TOTAL 0.2 mg/dL (0.2-1)
[2023-04-24 09:53] LABS: ALK PHOS 53 U/L (45-117)
[2023-04-24 09:55] LABS: SGPT/ALT < 6 U/L (13-61)
[2023-04-24] MEDS: ACETAMINOPHEN 1000 MG/100 ML BAG IVPB SCH ×2 (12:54→21:25)
[2023-04-24 15:26] VITALS: RESP 18
[2023-04-24] MEDS: FAT EMUL/SOY/MCT/OLIV/FISH OIL 250 ML IV SCH (21:26)
[2023-04-25] MEDS: POTASSIUM CHLORIDE 20 MEQ in AMINO ACIDS 4.25%/D5W 1,000 ML IV SCH ×2 (03:16→12:00)
[2023-04-25] MEDS: ACETAMINOPHEN 1000 MG/100 ML BAG IVPB SCH ×3 (04:12→18:35)
[2023-04-25 08:46] LABS: EOS % 9.1 % (0-4.5); HEMATOCRIT 25.8 % (35.4-49); HEMOGLOBIN 8.1 GM/dL (11.7-16.9); MCH 26.1 pg (25.7-33.7); MCHC 31.4 g/dl (32.0-35.9); MEAN CELL VOLUME 83.1 fl (80-96); MEAN PLT VOLUME 8.3 fl (7.5-11.1); MONO % 8.9 % (3.8-10.2); PLATELET COUNT 349 10^3/uL (134-434); RDW 15.3 % (11.9-15.9); WHITE BLOOD COUNT 8.1 K/mm3 (4.0-10.0)
[2023-04-25 09:02] LABS: CHLORIDE 103 mmol/L (98-107); POTASSIUM 3.7 mmol/L (3.5-5.1); SODIUM 135 mmol/L (136-145)
[2023-04-25 09:04] LABS: CALCIUM 8.6 mg/dL (8.5-10.1)
[2023-04-25 09:05] LABS: ALBUMIN 1.5 g/dl (3.4-5.0); ANION GAP 6 mmol/L (4-13); BLOOD UREA NITROGEN 11.1 mg/dL (7-18); CO2 27 mmol/L (21-32); GLUCOSE,RANDOM 100 mg/dL (74-106)
[2023-04-25 09:08] LABS: CREATININE 0.8 mg/dL (0.55-1.3); SGOT/AST 20 U/L (15-37); SGPT/ALT < 6 U/L (13-61)
[2023-04-25 09:09] LABS: BILIRUBIN,TOTAL 0.2 mg/dL (0.2-1)
[2023-04-25 09:10] LABS: TOT PROT 8.4 g/dl (6.4-8.2)
[2023-04-25 09:11] LABS: ALK PHOS 53 U/L (45-117)
[2023-04-25] MEDS: POLYETHYLENE GLYCOL (HEALTHYLAX) 3350 17 GM PACKET PO SCH (09:13)
[2023-04-25] MEDS: PANTOPRAZOLE SODIUM 40 MG VIAL IVPUSH SCH (09:14)
[2023-04-25] MEDS: MIDODRINE HCL 5 MG TABLET PO SCH ×3 (09:15→17:15)
[2023-04-25] MEDS: FUROSEMIDE 40 MG/4 ML INJECTABLE VIAL IVPUSH SCH (09:15)
[2023-04-25] MEDS: HEPARIN NA (PORCINE) 5,000 UNITS/ML 1ML VIAL SQ SCH ×2 (09:15→21:01)
[2023-04-25] MEDS ORDERED: MAGNESIUM SULF 50% (8.12 MEQ/2 ML-1 GM VIAL) IVPB ONE (11:00)
[2023-04-25] MEDS: FAT EMUL/SOY/MCT/OLIV/FISH OIL 250 ML IV SCH (21:01)
[2023-04-26] MEDS: ACETAMINOPHEN 1000 MG/100 ML BAG IVPB SCH (02:59)
[2023-04-26 11:10] LABS: BASO % 0.7 % (0-2.0); EOS % 10.3 % (0-4.5); HEMATOCRIT 26.4 % (35.4-49); HEMOGLOBIN 8.4 GM/dL (11.7-16.9); LYMPH % 9.7 % (8-40); MCH 26.7 pg (25.7-33.7); MCHC 31.9 g/dl (32.0-35.9); MEAN CELL VOLUME 83.7 fl (80-96); MEAN PLT VOLUME 8.5 fl (7.5-11.1); MONO % 8.3 % (3.8-10.2); PLATELET COUNT 339 10^3/uL (134-434); RBC 3.16 M/mm3 (4.00-5.60); RDW 15.3 % (11.9-15.9)
[2023-04-26 11:22] LABS: CHLORIDE 101 mmol/L (98-107); POTASSIUM 4.5 mmol/L (3.5-5.1); SODIUM 133 mmol/L (136-145)
[2023-04-26 11:44] LABS: CALCIUM 8.5 mg/dL (8.5-10.1)
[2023-04-26] MEDS: PANTOPRAZOLE SODIUM 40 MG VIAL IVPUSH SCH (11:44)
[2023-04-26] MEDS: FUROSEMIDE 40 MG/4 ML INJECTABLE VIAL IVPUSH SCH (11:44)
[2023-04-26 11:45] LABS: ALBUMIN 1.6 g/dl (3.4-5.0); ANION GAP 5 mmol/L (4-13); BLOOD UREA NITROGEN 14.8 mg/dL (7-18); CO2 27 mmol/L (21-32); GLUCOSE,RANDOM 114 mg/dL (74-106); MAGNESIUM 1.6 mg/dL (1.8-2.4)
[2023-04-26] MEDS: HEPARIN NA (PORCINE) 5,000 UNITS/ML 1ML VIAL SQ SCH ×2 (11:45→21:18)
[2023-04-26] MEDS: POLYETHYLENE GLYCOL (HEALTHYLAX) 3350 17 GM PACKET PO SCH (11:45)
[2023-04-26] MEDS: POTASSIUM CHLORIDE 20 MEQ in AMINO ACIDS 4.25%/D5W 1,000 ML IV SCH (11:45)
[2023-04-26] MEDS: MIDODRINE HCL 5 MG TABLET PO SCH ×3 (11:45→17:32)
[2023-04-26 11:48] LABS: BILIRUBIN,TOTAL 0.2 mg/dL (0.2-1); CREATININE 0.8 mg/dL (0.55-1.3); SGOT/AST 24 U/L (15-37)
[2023-04-26 11:49] LABS: SGPT/ALT < 6 U/L (13-61); TOT PROT 8.7 g/dl (6.4-8.2)
[2023-04-26 11:50] LABS: ALK PHOS 55 U/L (45-117)
[2023-04-26] MEDS ORDERED: POTASSIUM CHLORIDE 10 MEQ in AMINO ACIDS 4.25%/D5W 1,000 ML IV SCH (14:00)
[2023-04-27] MEDS: POLYETHYLENE GLYCOL (HEALTHYLAX) 3350 17 GM PACKET PO SCH (09:14)
[2023-04-27] MEDS: PANTOPRAZOLE SODIUM 40 MG VIAL IVPUSH SCH (09:14)
[2023-04-27] MEDS: HEPARIN NA (PORCINE) 5,000 UNITS/ML 1ML VIAL SQ SCH (09:14)
[2023-04-27] MEDS: MIDODRINE HCL 5 MG TABLET PO SCH (09:14)
[2023-04-27] MEDS ORDERED: MIDODRINE HCL 2.5 MG TABLET PO SCH (09:29)
[2023-04-27] MEDS ORDERED: FUROSEMIDE 20 MG TABLET (FP) PO SCH (10:00)
[2023-04-27] MEDS ORDERED: FUROSEMIDE 40 MG TABLET (FP) PO SCH (10:00)
[2023-04-27 12:02] VITALS: BP 110/60; PULSE 100; TEMP 98.2
== END 2023-04-27 12:32 | disposition home health service (06) | DRG 871 ==
LOC: JER 12:18 → JERBED 13:13 → OBSVTOIN 13:13 → JICU 04-07 04:24 → J8W 04-19 15:33
PROVIDERS: ADMIT Internal Medicine; ATTEND Nurse Practitioner Family
PROC: 05HM33Z Insertion of Infusion Device into Right Internal Jugular Vein, Percutaneous Approach (ICD-10-PCS; principal; 2023-04-07)
PROC: B543ZZA Ultrasonography of Right Jugular Veins, Guidance (ICD-10-PCS; 2023-04-07)
PROC: 4A133B1 Monitoring of Arterial Pressure, Peripheral, Percutaneous Approach (ICD-10-PCS; 2023-04-08)
PROC: 4A133J1 Monitoring of Arterial Pulse, Peripheral, Percutaneous Approach (ICD-10-PCS; 2023-04-08)
PROC: 0T2BX0Z Change Drainage Device in Bladder, External Approach (ICD-10-PCS; 2023-04-08)
PROC: 0TJB8ZZ Inspection of Bladder, Via Natural or Artificial Opening Endoscopic (ICD-10-PCS; 2023-04-08)
PROC: 0T903ZZ Drainage of Right Kidney, Percutaneous Approach (ICD-10-PCS; 2023-04-09)
PROC: 0T913ZZ Drainage of Left Kidney, Percutaneous Approach (ICD-10-PCS; 2023-04-09)
DX: A41.52 Sepsis due to Pseudomonas (principal); R65.21 Severe sepsis with septic shock; N39.0 Urinary tract infection, site not specified; G82.20 Paraplegia, unspecified; M62.82 Rhabdomyolysis; N17.9 Acute kidney failure, unspecified; E87.1 Hypo-osmolality and hyponatremia; E87.20 Acidosis, unspecified; N12 Tubulo-interstitial nephritis, not specified as acute or chronic; N13.30 Unspecified hydronephrosis; R18.8 Other ascites; J90 Pleural effusion, not elsewhere classified; E44.0 Moderate protein-calorie malnutrition; Z68.1 Body mass index [BMI] 19.9 or less, adult; K56.609 Unspecified intestinal obstruction, unspecified as to partial versus complete obstruction; N31.9 Neuromuscular dysfunction of bladder, unspecified; K59.00 Constipation, unspecified; N18.9 Chronic kidney disease, unspecified; R00.0 Tachycardia, unspecified; R50.9 Fever, unspecified; R33.8 Other retention of urine; I95.9 Hypotension, unspecified; E87.6 Hypokalemia; K40.90 Unilateral inguinal hernia, without obstruction or gangrene, not specified as recurrent; D72.829 Elevated white blood cell count, unspecified; K80.20 Calculus of gallbladder without cholecystitis without obstruction; L89.142 Pressure ulcer of left lower back, stage 2; L89.892 Pressure ulcer of other site, stage 2; Z93.3 Colostomy status
CPT/HCPCS: 0241U-QW; 36415; 36600; 50432; 71045-TC-FY; 74018-TC-FY; 74019-TC-FY; 74176-TC; 76000-TC-FY; 76705-TC; 76775-TC; 80048; 80053; 80061; 81003; 82550; 82553; 82803; 82962; 83605; 83690; 83735; 84100; 84484; 85025; 85027; 85384; 85610; 85730; 86022; 87040; 87070; 87075; 87086; 87102; 87106; 87186; 87205; 87210; 93005; 93010; 94010; 97161-GP; 99285-25; G0480; J1644; J3490

== ENCOUNTER 2023-05-17 15:23 | Inpatient (IN) | payer OTHER ==
[2023-05-17 22:01] LABS: VENOUS BASE EXCESS 4.2 mmol/L (-2-2); VENOUS O2 SATURATION 78.7 % (70-80); VENOUS PCO2 43.7 mmHg (38-52); VENOUS PH 7.437 (7.310-7.410)
[2023-05-17 22:03] LABS: BASO % 0.7 % (0-2.0); EOS % 3.6 % (0-4.5); HEMATOCRIT 20.7 % (35.4-49); LYMPH % 12.5 % (8-40); MCH 25.8 pg (25.7-33.7); MCHC 31.4 g/dl (32.0-35.9); MEAN CELL VOLUME 82.2 fl (80-96); MEAN PLT VOLUME 7.3 fl (7.5-11.1); MONO % 7.8 % (3.8-10.2); NEUT % 75.4 % (42.8-82.8); PLATELET COUNT 360 10^3/uL (134-434); RBC 2.52 M/mm3 (4.00-5.60); RDW 16.6 % (11.9-15.9); WHITE BLOOD COUNT 14.3 K/mm3 (4.0-10.0)
[2023-05-17 22:07] LABS: EPI CELLS 13 /uL (0-25.1); HYALINE CASTS 2 /uL (0-3.1); PH,URINE 7.5 (5.0-8.0); URINE APPEARANCE TURBID; URINE BACTERIA 6938 /uL (0-1359); URINE BILIRUBIN NEGATIVE (NEGATIVE); URINE COLOR ORANGE; URINE GLUCOSE (UA) NEGATIVE (NEGATIVE); URINE KETONE NEGATIVE (NEGATIVE); URINE LEUK ESTERASE 3+ (NEGATIVE); URINE NITRITE NEGATIVE (NEGATIVE); URINE PROTEIN 2+ (NEGATIVE); URINE RBC 2495 /uL (0-23.9); URINE UROBILINOGEN 0.2 mg/dL (0.2-1.0); URINE WBC 2188 /uL (0-25.8)
[2023-05-17 22:14] LABS: CHLORIDE 97 mmol/L (98-107); POTASSIUM 3.6 mmol/L (3.5-5.1); SODIUM 133 mmol/L (136-145)
[2023-05-17 22:16] LABS: CALCIUM 8.6 mg/dL (8.5-10.1)
[2023-05-17 22:17] LABS: ALBUMIN 1.8 g/dl (3.4-5.0); ANION GAP 6 mmol/L (4-13); BLOOD UREA NITROGEN 20.2 mg/dL (7-18); CO2 31 mmol/L (21-32); GLUCOSE,RANDOM 89 mg/dL (74-106)
[2023-05-17 22:21] LABS: CREATININE 1.2 mg/dL (0.55-1.3); SGOT/AST 18 U/L (15-37); TOT PROT 8.4 g/dl (6.4-8.2)
[2023-05-17 22:22] LABS: BILIRUBIN,TOTAL 0.4 mg/dL (0.2-1)
[2023-05-17 22:24] LABS: ALK PHOS 54 U/L (45-117)
[2023-05-17 22:28] LABS: HEMOGLOBIN 6.5 GM/dL (11.7-16.9)
[2023-05-17 22:30] LABS: SGPT/ALT < 6 U/L (13-61)
[2023-05-17] MEDS ORDERED: PIPERACILLIN/TAZOB 3.375 GM 3.375 GM/50 ML BAG IVPB ONE (22:35)
[2023-05-18] MEDS: PIPERACILLIN/TAZOB 3.375 GM 3.375 GM in DEXTROSE 5%-WATER - 50 ML IVPB ONE (00:37)
[2023-05-18] MEDS: SODIUM CHLORIDE 1,000 ML IV STA (00:37)
[2023-05-18 00:51] LABS: INR 1.24 (0.83-1.09); PROTHROMBIN TIME (PATIENT) 14.4 SEC (9.7-13.0)
[2023-05-18 02:02] LABS: HIV INTERPRETATION NEGATIVE (NEGATIVE)
[2023-05-18] MEDS ORDERED: MIDODRINE HCL 5 MG TABLET ONE ×2 (05:54→23:51)
[2023-05-18] MEDS: MIDODRINE HCL 5 MG TABLET PO SCH (05:59)
[2023-05-18 09:27] LABS: BASO % 0.4 % (0-2.0); EOS % 2.4 % (0-4.5); HEMATOCRIT 32.5 % (35.4-49); HEMOGLOBIN 10.2 GM/dL (11.7-16.9); LYMPH % 4.2 % (8-40); MCH 26.4 pg (25.7-33.7); MCHC 31.4 g/dl (32.0-35.9); MEAN CELL VOLUME 84.3 fl (80-96); MEAN PLT VOLUME 7.1 fl (7.5-11.1); MONO % 4.8 % (3.8-10.2); NEUT % 88.2 % (42.8-82.8); PLATELET COUNT 360 10^3/uL (134-434); RBC 3.86 M/mm3 (4.00-5.60); RDW 15.8 % (11.9-15.9); WHITE BLOOD COUNT 14.5 K/mm3 (4.0-10.0)
[2023-05-18] MEDS ORDERED: PIPERACILLIN/TAZOB 3.375 GM 3.375 GM/50 ML BAG IVPB ONE ×2 (10:01→17:10)
[2023-05-18] MEDS: POLYETHYLENE GLYCOL (HEALTHYLAX) 3350 17 GM PACKET PO SCH (10:15)
[2023-05-18] MEDS: OXYBUTYNIN CHLORIDE 5 MG TABLET PO SCH (10:15)
[2023-05-18] MEDS: PIPERACILLIN/TAZOB 3.375 GM 3.375 GM in DEXTROSE 5%-WATER - 50 ML IVPB SCH ×2 (10:15→17:26)
[2023-05-18 10:26] LABS: POTASSIUM 3.3 mmol/L (3.5-5.1)
[2023-05-18 10:28] LABS: CALCIUM 9.2 mg/dL (8.5-10.1)
[2023-05-18 10:29] LABS: ALBUMIN 1.8 g/dl (3.4-5.0); BLOOD UREA NITROGEN 20.7 mg/dL (7-18)
[2023-05-18 10:32] LABS: CREATININE 1.6 mg/dL (0.55-1.3)
[2023-05-18 10:34] LABS: BILIRUBIN,TOTAL 1.8 mg/dL (0.2-1); TOT PROT 8.5 g/dl (6.4-8.2)
[2023-05-18] MEDS ORDERED: ACETAMINOPHEN INJECTION 100 ML IVPB ONE (23:51)
[2023-05-18] MEDS: MIDODRINE HCL 5 MG TABLET PO ONE (23:56)
[2023-05-18] MEDS: ACETAMINOPHEN 1000 MG/100 ML BAG IVPB ONE (23:56)
[2023-05-19] MEDS: SODIUM CHLORIDE 0.9% 500 ML INFUS.BAG IV ONE (02:30)
[2023-05-19] MEDS: DEXTROSE 5%-LACTATED RINGERS 1,000 ML IV SCH (03:24)
[2023-05-19] MEDS ORDERED: PIPERACILLIN/TAZOB 3.375 GM 3.375 GM/50 ML BAG IVPB ONE (03:25)
[2023-05-19 07:38] LABS: BILIRUBIN,DIRECT 0.5 mg/dL (0.0-0.2)
[2023-05-19 09:53] LABS: HEMATOCRIT 29.1 % (35.4-49); HEMOGLOBIN 9.2 GM/dL (11.7-16.9); MCH 26.3 pg (25.7-33.7); MCHC 31.4 g/dl (32.0-35.9); MEAN CELL VOLUME 83.7 fl (80-96); MEAN PLT VOLUME 7.2 fl (7.5-11.1); PLATELET COUNT 331 10^3/uL (134-434); RBC 3.48 M/mm3 (4.00-5.60); RDW 16.4 % (11.9-15.9); WHITE BLOOD COUNT 13.2 K/mm3 (4.0-10.0)
[2023-05-19] MEDS: LACTATED RINGERS SOLUTION 1000 ML INFUS.BAG IV STA (10:11)
[2023-05-19 10:33] LABS: CHLORIDE 103 mmol/L (98-107); POTASSIUM 3.3 mmol/L (3.5-5.1); SODIUM 138 mmol/L (136-145)
[2023-05-19 10:36] LABS: ALBUMIN 1.5 g/dl (3.4-5.0); ANION GAP 8 mmol/L (4-13); BLOOD UREA NITROGEN 21.6 mg/dL (7-18); CALCIUM 8.1 mg/dL (8.5-10.1); CO2 27 mmol/L (21-32); GLUCOSE,RANDOM 185 mg/dL (74-106); MAGNESIUM 1.7 mg/dL (1.8-2.4)
[2023-05-19 10:38] LABS: CREATININE 1.4 mg/dL (0.55-1.3)
[2023-05-19 10:39] LABS: PHOSPHOROUS 4.2 mg/dL (2.5-4.9); SGOT/AST 16 U/L (15-37)
[2023-05-19 10:41] LABS: BILIRUBIN,TOTAL 0.7 mg/dL (0.2-1)
[2023-05-19 10:42] LABS: ALK PHOS 44 U/L (45-117)
[2023-05-19 10:54] LABS: SGPT/ALT < 6 U/L (13-61)
[2023-05-19] MEDS: FLU VACCINE (FLULAVAL) PF 60 MCG/0.5 ML SYRINGE 2023-2024 IM ONE (14:36)
[2023-05-19] MEDS: PIPERACILLIN/TAZOB 3.375 GM 3.375 GM in DEXTROSE 5%-WATER - 50 ML IVPB SCH (18:13)
[2023-05-19] MEDS: POTASSIUM CHLORIDE TABS 20 MEQ TABLET.ER (FP) PO ONE ×2 (18:23→18:24)
[2023-05-19] MEDS ORDERED: MIDODRINE HCL 5 MG TABLET PO ONE (22:33)
[2023-05-20] MEDS: MAGNESIUM HYDROX 2400MG/30ML ORAL SUSPENSION 30 ML CUP PO ONE (00:58)
[2023-05-20 08:50] LABS: HEMATOCRIT 29.1 % (35.4-49); HEMOGLOBIN 9.3 GM/dL (11.7-16.9); MCH 26.7 pg (25.7-33.7); MEAN CELL VOLUME 83.6 fl (80-96); MEAN PLT VOLUME 7.1 fl (7.5-11.1); PLATELET COUNT 336 10^3/uL (134-434); RBC 3.48 M/mm3 (4.00-5.60); RDW 16.1 % (11.9-15.9); WHITE BLOOD COUNT 12.2 K/mm3 (4.0-10.0)
[2023-05-20 08:55] LABS: CHLORIDE 103 mmol/L (98-107); POTASSIUM 3.7 mmol/L (3.5-5.1); SODIUM 138 mmol/L (136-145)
[2023-05-20 09:15] LABS: BLOOD UREA NITROGEN 10.8 mg/dL (7-18); GLUCOSE,RANDOM 105 mg/dL (74-106)
[2023-05-20 09:17] LABS: CALCIUM 8.4 mg/dL (8.5-10.1)
[2023-05-20 09:18] LABS: ALBUMIN 1.6 g/dl (3.4-5.0); ANION GAP 6 mmol/L (4-13); CO2 30 mmol/L (21-32); CREATININE 1.1 mg/dL (0.55-1.3); MAGNESIUM 1.4 mg/dL (1.8-2.4); PHOSPHOROUS 3.4 mg/dL (2.5-4.9)
[2023-05-20 09:19] LABS: SGOT/AST 14 U/L (15-37)
[2023-05-20 09:20] LABS: BILIRUBIN,TOTAL 0.4 mg/dL (0.2-1); TOT PROT 7.7 g/dl (6.4-8.2)
[2023-05-20 09:21] LABS: ALK PHOS 49 U/L (45-117)
[2023-05-20 09:26] LABS: SGPT/ALT < 6 U/L (13-61)
[2023-05-20] MEDS: MULTIVITAMINS (DAILY MVI) TABLET (FP) PO SCH (09:38)
[2023-05-20] MEDS: MAGNESIUM 2GM/50ML STERILE WATER IVPB IVPB ONE (11:49)
[2023-05-20] MEDS: PIPERACILLIN/TAZOB 4.5 GM 4.5 GM in DEXTROSE 5%-WATER 100 ML IVPB SCH (16:17)
[2023-05-20] MEDS: LACTATED RINGERS SOLUTION 1,000 ML/1,000 ML INFUS.BAG IV SCH (17:51)
[2023-05-20] MEDS: BACITRACIN ZINC 15 GM TUBE TOPICAL OINTMENT TP SCH (21:28)
[2023-05-21 07:43] LABS: BASO % 0.4 % (0-2.0); EOS % 8.9 % (0-4.5); HEMATOCRIT 31.3 % (35.4-49); LYMPH % 10.9 % (8-40); MCH 26.7 pg (25.7-33.7); MCHC 31.9 g/dl (32.0-35.9); MEAN CELL VOLUME 83.8 fl (80-96); MONO % 7.5 % (3.8-10.2); NEUT % 72.3 % (42.8-82.8); PLATELET COUNT 343 10^3/uL (134-434); RBC 3.73 M/mm3 (4.00-5.60); RDW 16.8 % (11.9-15.9); WHITE BLOOD COUNT 13.1 K/mm3 (4.0-10.0)
[2023-05-21 09:05] LABS: CHLORIDE 103 mmol/L (98-107); POTASSIUM 4.2 mmol/L (3.5-5.1); SODIUM 138 mmol/L (136-145)
[2023-05-21 09:18] LABS: CALCIUM 8.5 mg/dL (8.5-10.1)
[2023-05-21 09:19] LABS: ALBUMIN 1.6 g/dl (3.4-5.0); ANION GAP 6 mmol/L (4-13); BLOOD UREA NITROGEN 7.3 mg/dL (7-18); CO2 29 mmol/L (21-32); GLUCOSE,RANDOM 90 mg/dL (74-106); MAGNESIUM 1.7 mg/dL (1.8-2.4)
[2023-05-21 09:22] LABS: PHOSPHOROUS 3.4 mg/dL (2.5-4.9); SGOT/AST 19 U/L (15-37)
[2023-05-21 09:23] LABS: BILIRUBIN,TOTAL 0.5 mg/dL (0.2-1); TOT PROT 8.1 g/dl (6.4-8.2)
[2023-05-21 09:24] LABS: ALK PHOS 54 U/L (45-117)
[2023-05-21 09:26] LABS: SGPT/ALT < 6 U/L (13-61)
[2023-05-21] MEDS: POLYETHYLENE GLYCOL (HEALTHYLAX) 3350 17 GM PACKET PO SCH (10:25)
[2023-05-22] MEDS: ACETAMINOPHEN 1000 MG/100 ML BAG IVPB ONE (03:41)
[2023-05-22 09:14] LABS: BASO % 0.4 % (0-2.0); EOS % 8.1 % (0-4.5); HEMATOCRIT 30.8 % (35.4-49); HEMOGLOBIN 9.5 GM/dL (11.7-16.9); LYMPH % 10.1 % (8-40); MCH 25.9 pg (25.7-33.7); MCHC 30.8 g/dl (32.0-35.9); MEAN CELL VOLUME 84.3 fl (80-96); MONO % 8.3 % (3.8-10.2); NEUT % 73.1 % (42.8-82.8); PLATELET COUNT 318 10^3/uL (134-434); RBC 3.66 M/mm3 (4.00-5.60); RDW 16.4 % (11.9-15.9); WHITE BLOOD COUNT 12.5 K/mm3 (4.0-10.0)
[2023-05-22 09:56] LABS: CHLORIDE 104 mmol/L (98-107); POTASSIUM 4.2 mmol/L (3.5-5.1); SODIUM 140 mmol/L (136-145)
[2023-05-22 10:10] LABS: ALBUMIN 1.5 g/dl (3.4-5.0)
[2023-05-22 10:11] LABS: GLUCOSE,RANDOM 96 mg/dL (74-106)
[2023-05-22 10:12] LABS: BILIRUBIN,TOTAL 0.3 mg/dL (0.2-1); BLOOD UREA NITROGEN 6.5 mg/dL (7-18); CALCIUM 8.3 mg/dL (8.5-10.1); CREATININE 0.9 mg/dL (0.55-1.3); TOT PROT 7.6 g/dl (6.4-8.2)
[2023-05-22 10:13] LABS: ALK PHOS 46 U/L (45-117); ANION GAP 6 mmol/L (4-13); CO2 29 mmol/L (21-32); SGOT/AST 18 U/L (15-37)
[2023-05-22 10:14] LABS: SGPT/ALT < 6 U/L (13-61)
[2023-05-23 08:54] LABS: HEMATOCRIT 34.8 % (35.4-49); MCH 26.1 pg (25.7-33.7); MCHC 31.5 g/dl (32.0-35.9); MEAN CELL VOLUME 82.9 fl (80-96); MEAN PLT VOLUME 7.1 fl (7.5-11.1); PLATELET COUNT 363 10^3/uL (134-434); RDW 16.8 % (11.9-15.9); WHITE BLOOD COUNT 13.8 K/mm3 (4.0-10.0)
[2023-05-23 09:49] LABS: CHLORIDE 101 mmol/L (98-107); POTASSIUM 3.9 mmol/L (3.5-5.1); SODIUM 135 mmol/L (136-145)
[2023-05-23 10:01] LABS: ALBUMIN 1.6 g/dl (3.4-5.0)
[2023-05-23 10:02] LABS: BLOOD UREA NITROGEN 5.9 mg/dL (7-18); GLUCOSE,RANDOM 89 mg/dL (74-106)
[2023-05-23 10:03] LABS: CALCIUM 8.1 mg/dL (8.5-10.1)
[2023-05-23 10:04] LABS: ANION GAP 7 mmol/L (4-13); CO2 28 mmol/L (21-32); MAGNESIUM 1.7 mg/dL (1.8-2.4); SGOT/AST 18 U/L (15-37); SGPT/ALT < 6 U/L (13-61)
[2023-05-23 10:05] LABS: BILIRUBIN,TOTAL 0.5 mg/dL (0.2-1); PHOSPHOROUS 3.2 mg/dL (2.5-4.9); TOT PROT 8.1 g/dl (6.4-8.2)
[2023-05-23 10:07] LABS: ALK PHOS 48 U/L (45-117)
[2023-05-23] MEDS: MAGNESIUM SULF 50% (8.12 MEQ/2 ML-1 GM VIAL) IVPB ONE (18:23)
[2023-05-24 08:38] LABS: HEMATOCRIT 33.8 % (35.4-49); HEMOGLOBIN 10.5 GM/dL (11.7-16.9); MCH 26.1 pg (25.7-33.7); MCHC 31.2 g/dl (32.0-35.9); MEAN CELL VOLUME 83.5 fl (80-96); MEAN PLT VOLUME 7.4 fl (7.5-11.1); PLATELET COUNT 367 10^3/uL (134-434); RBC 4.05 M/mm3 (4.00-5.60); RDW 16.6 % (11.9-15.9); WHITE BLOOD COUNT 13.1 K/mm3 (4.0-10.0)
[2023-05-24 08:39] LABS: CHLORIDE 102 mmol/L (98-107); POTASSIUM 4.2 mmol/L (3.5-5.1); SODIUM 136 mmol/L (136-145)
[2023-05-24 08:42] LABS: ALBUMIN 1.6 g/dl (3.4-5.0); ANION GAP 6 mmol/L (4-13); CALCIUM 8.4 mg/dL (8.5-10.1); CO2 29 mmol/L (21-32); GLUCOSE,RANDOM 109 mg/dL (74-106); MAGNESIUM 2.3 mg/dL (1.8-2.4)
[2023-05-24 08:43] LABS: BLOOD UREA NITROGEN 7.3 mg/dL (7-18)
[2023-05-24 08:45] LABS: CREATININE 0.8 mg/dL (0.55-1.3); PHOSPHOROUS 3.2 mg/dL (2.5-4.9)
[2023-05-24 08:46] LABS: SGOT/AST 19 U/L (15-37)
[2023-05-24 08:47] LABS: BILIRUBIN,TOTAL 0.5 mg/dL (0.2-1); TOT PROT 8.6 g/dl (6.4-8.2)
[2023-05-24 08:48] LABS: ALK PHOS 50 U/L (45-117); SGPT/ALT < 6 U/L (13-61)
[2023-05-24] MEDS: SODIUM CHLORIDE 500 ML IV STA (10:13)
[2023-05-25 08:22] LABS: HEMATOCRIT 29.7 % (35.4-49); HEMOGLOBIN 8.9 GM/dL (11.7-16.9); MCH 25.6 pg (25.7-33.7); MCHC 30.1 g/dl (32.0-35.9); MEAN PLT VOLUME 7.3 fl (7.5-11.1); PLATELET COUNT 367 10^3/uL (134-434); RBC 3.49 M/mm3 (4.00-5.60); RDW 16.6 % (11.9-15.9)
[2023-05-25 08:29] LABS: CHLORIDE 106 mmol/L (98-107); SODIUM 139 mmol/L (136-145)
[2023-05-25 08:36] LABS: CALCIUM 8.7 mg/dL (8.5-10.1)
[2023-05-25 08:37] LABS: ALBUMIN 1.4 g/dl (3.4-5.0); ANION GAP 7 mmol/L (4-13); BLOOD UREA NITROGEN 9.1 mg/dL (7-18); CO2 26 mmol/L (21-32); GLUCOSE,RANDOM 91 mg/dL (74-106); MAGNESIUM 1.8 mg/dL (1.8-2.4)
[2023-05-25 08:40] LABS: CREATININE 0.9 mg/dL (0.55-1.3); PHOSPHOROUS 3.2 mg/dL (2.5-4.9); SGOT/AST 13 U/L (15-37); SGPT/ALT < 6 U/L (13-61); TOT PROT 7.7 g/dl (6.4-8.2)
[2023-05-25 08:41] LABS: ALK PHOS 46 U/L (45-117)
[2023-05-25 08:42] LABS: BILIRUBIN,TOTAL 0.2 mg/dL (0.2-1)
[2023-05-25] MEDS: AMINO ACIDS/PROTEIN HYDROLYS 30 ML LIQUID.PKT PO SCH (11:00)
[2023-05-25] MEDS: morphine SULFATE 4 MG/ML VIAL IVPUSH ONE (14:53)
[2023-05-26] MEDS: BISMUTH SUBSALICYLATE 524 MG/30 ML PO ONE (00:06)
[2023-05-26 08:16] LABS: HEMATOCRIT 33.2 % (35.4-49); HEMOGLOBIN 10.2 GM/dL (11.7-16.9); MCHC 30.9 g/dl (32.0-35.9); MEAN CELL VOLUME 84.2 fl (80-96); MEAN PLT VOLUME 7.1 fl (7.5-11.1); PLATELET COUNT 361 10^3/uL (134-434); RBC 3.94 M/mm3 (4.00-5.60); RDW 16.7 % (11.9-15.9); WHITE BLOOD COUNT 11.9 K/mm3 (4.0-10.0)
[2023-05-26 08:38] LABS: ALBUMIN 1.5 g/dl (3.4-5.0); BLOOD UREA NITROGEN 13.5 mg/dL (7-18); PHOSPHOROUS 3.8 mg/dL (2.5-4.9)
[2023-05-26 08:39] LABS: BILIRUBIN,TOTAL 0.2 mg/dL (0.2-1); CALCIUM 8.4 mg/dL (8.5-10.1); MAGNESIUM 1.7 mg/dL (1.8-2.4)
[2023-05-26 08:42] LABS: CREATININE 1.1 mg/dL (0.55-1.3)
[2023-05-26] MEDS: MAGNESIUM OXIDE 400 MG TABLET (FP) PO ONE (16:50)
[2023-05-26] MEDS: MAGNESIUM SULF 50% (8.12 MEQ/2 ML-1 GM VIAL) IVPB ONE (18:04)
[2023-05-27 10:22] LABS: HEMATOCRIT 30.4 % (35.4-49); HEMOGLOBIN 9.3 GM/dL (11.7-16.9); MCH 25.7 pg (25.7-33.7); MCHC 30.6 g/dl (32.0-35.9); MEAN PLT VOLUME 7.4 fl (7.5-11.1); PLATELET COUNT 377 10^3/uL (134-434); RBC 3.62 M/mm3 (4.00-5.60); RDW 16.8 % (11.9-15.9); WHITE BLOOD COUNT 11.7 K/mm3 (4.0-10.0)
[2023-05-27] MEDS: PIPERACILLIN/TAZOB 4.5 GM 4.5 GM in DEXTROSE 5%-WATER 100 ML IVPB SCH (10:23)
[2023-05-27 10:37] LABS: CHLORIDE 106 mmol/L (98-107); POTASSIUM 4.3 mmol/L (3.5-5.1); SODIUM 139 mmol/L (136-145)
[2023-05-27 10:47] LABS: ALBUMIN 1.6 g/dl (3.4-5.0); ANION GAP 4 mmol/L (4-13); BLOOD UREA NITROGEN 18.5 mg/dL (7-18); CALCIUM 9.1 mg/dL (8.5-10.1); CO2 29 mmol/L (21-32); GLUCOSE,RANDOM 119 mg/dL (74-106)
[2023-05-27 10:48] LABS: MAGNESIUM 2.3 mg/dL (1.8-2.4)
[2023-05-27 10:49] LABS: PHOSPHOROUS 3.5 mg/dL (2.5-4.9)
[2023-05-27 10:50] LABS: BILIRUBIN,TOTAL 0.1 mg/dL (0.2-1)
[2023-05-27 10:51] LABS: CREATININE 0.9 mg/dL (0.55-1.3); SGOT/AST 18 U/L (15-37); TOT PROT 8.2 g/dl (6.4-8.2)
[2023-05-27 10:52] LABS: ALK PHOS 49 U/L (45-117)
[2023-05-27 10:58] LABS: SGPT/ALT < 6 U/L (13-61)
[2023-05-27] MEDS: OXYBUTYNIN CHLORIDE 5 MG TABLET PO SCH (21:53)
[2023-05-27] MEDS: BACITRACIN ZINC 15 GM TUBE TOPICAL OINTMENT TP SCH (21:53)
[2023-05-28] MEDS: MULTIVITAMINS (DAILY MVI) TABLET (FP) PO SCH (09:03)
[2023-05-28] MEDS: MIDODRINE HCL 5 MG TABLET PO SCH (09:03)
[2023-05-28] MEDS: POLYETHYLENE GLYCOL (HEALTHYLAX) 3350 17 GM PACKET PO SCH (09:04)
[2023-05-29 10:31] LABS: INR 1.18 (0.83-1.09); PROTHROMBIN TIME (PATIENT) 13.7 SEC (9.7-13.0)
[2023-05-29 10:34] LABS: ACTIVATED PTT 31.8 SECONDS (25.2-36.5)
[2023-05-29 10:49] LABS: CHLORIDE 101 mmol/L (98-107); POTASSIUM 4.3 mmol/L (3.5-5.1); SODIUM 136 mmol/L (136-145)
[2023-05-29 10:51] LABS: ALBUMIN 1.7 g/dl (3.4-5.0); CALCIUM 9.2 mg/dL (8.5-10.1)
[2023-05-29 10:52] LABS: ANION GAP 6 mmol/L (4-13); BLOOD UREA NITROGEN 16.2 mg/dL (7-18); CO2 29 mmol/L (21-32); GLUCOSE,RANDOM 100 mg/dL (74-106); MAGNESIUM 1.8 mg/dL (1.8-2.4)
[2023-05-29 10:54] LABS: PHOSPHOROUS 4.5 mg/dL (2.5-4.9); SGPT/ALT < 6 U/L (13-61)
[2023-05-29 10:55] LABS: CREATININE 1.1 mg/dL (0.55-1.3); SGOT/AST 20 U/L (15-37)
[2023-05-29 10:56] LABS: BILIRUBIN,TOTAL 0.3 mg/dL (0.2-1); TOT PROT 8.8 g/dl (6.4-8.2)
[2023-05-29] MEDS ORDERED: MIDAZOLAM HCL 2 MG/2 ML SINGLE DOSE VIAL ONE ×2 (10:56→13:20)
[2023-05-29] MEDS ORDERED: PROPOFOL 20 ML ONE ×2 (10:56→13:28)
[2023-05-29 10:57] LABS: ALK PHOS 46 U/L (45-117)
[2023-05-29 11:22] LABS: BASO % 0.5 % (0-2.0); EOS % 13.1 % (0-4.5); HEMATOCRIT 31.7 % (35.4-49); HEMOGLOBIN 9.8 GM/dL (11.7-16.9); LYMPH % 10.4 % (8-40); MCH 26.1 pg (25.7-33.7); MEAN CELL VOLUME 84.3 fl (80-96); MEAN PLT VOLUME 7.3 fl (7.5-11.1); MONO % 5.2 % (3.8-10.2); NEUT % 70.8 % (42.8-82.8); PLATELET COUNT 399 10^3/uL (134-434); RBC 3.76 M/mm3 (4.00-5.60); RDW 16.7 % (11.9-15.9); WHITE BLOOD COUNT 11.3 K/mm3 (4.0-10.0)
[2023-05-29] MEDS ORDERED: LIDOCAINE HCL 1%, 10 MG/ML (20ML VIAL) ONE (12:53)
[2023-05-29] MEDS ORDERED: BUPIVACAINE HCL/PF 0.5% (5MG/ML) 10 ML VIAL ONE (12:53)
[2023-05-29] MEDS ORDERED: ceFAZolin SODIUM 1 GM VIAL ONE ×2 (13:27→13:28)
[2023-05-29] MEDS ORDERED: ONDANSETRON 4 MG/2 ML VIAL ONE (13:27)
[2023-05-29] MEDS: ceFAZolin SODIUM 1 GM VIAL IVPB ONE (13:30)
[2023-05-29] MEDS: LACTATED RINGERS SOLUTION 1,000 ML IV SCH (17:41)
[2023-05-29] MEDS: PIPERACILLIN/TAZOB 4.5 GM 4.5 GM in DEXTROSE 5%-WATER 100 ML IVPB SCH (18:38)
[2023-05-29] MEDS: MIDODRINE HCL 5 MG TABLET PO SCH (18:39)
[2023-05-29] MEDS: BACITRACIN ZINC 15 GM TUBE TOPICAL OINTMENT TP SCH (21:24)
[2023-05-29] MEDS: OXYBUTYNIN CHLORIDE 5 MG TABLET PO SCH (21:25)
[2023-05-30] MEDS: AMINO ACIDS/PROTEIN HYDROLYS 30 ML LIQUID.PKT PO SCH (09:15)
[2023-05-30] MEDS: POLYETHYLENE GLYCOL (HEALTHYLAX) 3350 17 GM PACKET PO SCH (09:15)
[2023-05-30] MEDS: MULTIVITAMINS (DAILY MVI) TABLET (FP) PO SCH (09:16)
[2023-05-30 09:46] LABS: HEMATOCRIT 30.2 % (35.4-49); HEMOGLOBIN 9.4 GM/dL (11.7-16.9); MCH 25.7 pg (25.7-33.7); MCHC 31.1 g/dl (32.0-35.9); MEAN CELL VOLUME 82.8 fl (80-96); MEAN PLT VOLUME 7.2 fl (7.5-11.1); PLATELET COUNT 367 10^3/uL (134-434); RBC 3.65 M/mm3 (4.00-5.60); RDW 16.9 % (11.9-15.9); WHITE BLOOD COUNT 11.6 K/mm3 (4.0-10.0)
[2023-05-30 10:02] LABS: CHLORIDE 100 mmol/L (98-107); POTASSIUM 4.1 mmol/L (3.5-5.1); SODIUM 136 mmol/L (136-145)
[2023-05-30 10:17] LABS: CALCIUM 9.7 mg/dL (8.5-10.1)
[2023-05-30 10:18] LABS: ALBUMIN 1.7 g/dl (3.4-5.0); ANION GAP 6 mmol/L (4-13); BLOOD UREA NITROGEN 12.4 mg/dL (7-18); CO2 30 mmol/L (21-32); GLUCOSE,RANDOM 135 mg/dL (74-106); MAGNESIUM 1.8 mg/dL (1.8-2.4)
[2023-05-30 10:21] LABS: PHOSPHOROUS 3.5 mg/dL (2.5-4.9); SGOT/AST 19 U/L (15-37)
[2023-05-30 10:22] LABS: TOT PROT 8.5 g/dl (6.4-8.2)
[2023-05-30 10:23] LABS: BILIRUBIN,TOTAL 0.6 mg/dL (0.2-1)
[2023-05-30 10:24] LABS: ALK PHOS 44 U/L (45-117)
[2023-05-30 10:29] LABS: SGPT/ALT < 6 U/L (13-61)
[2023-05-30] MEDS ORDERED: ACETAMINOPHEN 325 MG TABLET (FP) PO PRN (10:53)
[2023-05-31 13:09] LABS: HEMATOCRIT 30.4 % (35.4-49); HEMOGLOBIN 9.6 GM/dL (11.7-16.9); MCH 26.2 pg (25.7-33.7); MCHC 31.4 g/dl (32.0-35.9); MEAN CELL VOLUME 83.3 fl (80-96); MEAN PLT VOLUME 7.6 fl (7.5-11.1); PLATELET COUNT 370 10^3/uL (134-434); RBC 3.65 M/mm3 (4.00-5.60); RDW 16.9 % (11.9-15.9); WHITE BLOOD COUNT 12.8 K/mm3 (4.0-10.0)
[2023-05-31 13:12] LABS: CHLORIDE 97 mmol/L (98-107); POTASSIUM 4.2 mmol/L (3.5-5.1); SODIUM 135 mmol/L (136-145)
[2023-05-31 13:16] LABS: ALBUMIN 1.6 g/dl (3.4-5.0); ANION GAP 8 mmol/L (4-13); BLOOD UREA NITROGEN 12.2 mg/dL (7-18); CALCIUM 10.1 mg/dL (8.5-10.1); CO2 30 mmol/L (21-32); GLUCOSE,RANDOM 132 mg/dL (74-106)
[2023-05-31 13:19] LABS: CREATININE 0.8 mg/dL (0.55-1.3); PHOSPHOROUS 3.2 mg/dL (2.5-4.9); SGOT/AST 27 U/L (15-37)
[2023-05-31 13:21] LABS: BILIRUBIN,TOTAL 0.6 mg/dL (0.2-1); TOT PROT 8.5 g/dl (6.4-8.2)
[2023-05-31 13:22] LABS: ALK PHOS 45 U/L (45-117)
[2023-05-31 13:25] LABS: SGPT/ALT < 6 U/L (13-61)
[2023-05-31] MEDS: ONDANSETRON 4 MG/2 ML VIAL IVPUSH PRN (17:15)
[2023-05-31] MEDS ORDERED: LACTATED RINGERS SOLUTION 1,000 ML/1,000 ML INFUS.BAG IV SCH (17:30)
[2023-05-31] MEDS: LACTATED RINGERS SOLUTION 1,000 ML/1,000 ML INFUS.BAG IV SCH (17:41)
[2023-06-01 10:00] LABS: HEMATOCRIT 29.2 % (35.4-49); HEMOGLOBIN 9.2 GM/dL (11.7-16.9); MCH 26.1 pg (25.7-33.7); MCHC 31.6 g/dl (32.0-35.9); MEAN CELL VOLUME 82.6 fl (80-96); MEAN PLT VOLUME 7.2 fl (7.5-11.1); PLATELET COUNT 409 10^3/uL (134-434); RBC 3.54 M/mm3 (4.00-5.60); RDW 16.6 % (11.9-15.9); WHITE BLOOD COUNT 12.6 K/mm3 (4.0-10.0)
[2023-06-01 10:29] LABS: CHLORIDE 97 mmol/L (98-107); POTASSIUM 3.6 mmol/L (3.5-5.1); SODIUM 134 mmol/L (136-145)
[2023-06-01 10:42] LABS: CALCIUM 10.1 mg/dL (8.5-10.1)
[2023-06-01 10:45] LABS: ALBUMIN 1.7 g/dl (3.4-5.0)
[2023-06-01 10:46] LABS: BLOOD UREA NITROGEN 12.6 mg/dL (7-18); GLUCOSE,RANDOM 103 mg/dL (74-106)
[2023-06-01 10:47] LABS: ANION GAP 8 mmol/L (4-13); CO2 29 mmol/L (21-32)
[2023-06-01 10:48] LABS: MAGNESIUM 1.6 mg/dL (1.8-2.4); SGOT/AST 16 U/L (15-37); SGPT/ALT < 6 U/L (13-61)
[2023-06-01 10:49] LABS: CREATININE 0.9 mg/dL (0.55-1.3); PHOSPHOROUS 3.8 mg/dL (2.5-4.9)
[2023-06-01 10:50] LABS: BILIRUBIN,TOTAL 0.5 mg/dL (0.2-1)
[2023-06-01 10:53] LABS: ALK PHOS 41 U/L (45-117); TOT PROT 8.5 g/dl (6.4-8.2)
[2023-06-01] MEDS: SODIUM CHLORIDE 1,000 ML IV SCH (18:02)
[2023-06-01 19:16] LABS: POTASSIUM 3.4 mmol/L (3.5-5.1)
[2023-06-01 19:23] LABS: CALCIUM 9.5 mg/dL (8.5-10.1)
[2023-06-01 21:47] LABS: POTASSIUM 4.3 mmol/L (3.5-5.1)
[2023-06-01 21:48] LABS: BLOOD UREA NITROGEN 13.7 mg/dL (7-18); CALCIUM 10.3 mg/dL (8.5-10.1)
[2023-06-02] MEDS: SODIUM CHLORIDE 1,000 ML IV SCH (10:03)
[2023-06-02 11:41] LABS: HEMATOCRIT 27.2 % (35.4-49); HEMOGLOBIN 8.5 GM/dL (11.7-16.9); MCHC 31.2 g/dl (32.0-35.9); MEAN CELL VOLUME 83.3 fl (80-96); PLATELET COUNT 326 10^3/uL (134-434); RBC 3.27 M/mm3 (4.00-5.60); RDW 16.7 % (11.9-15.9)
[2023-06-02 11:50] LABS: INR 1.17 (0.83-1.09); PROTHROMBIN TIME (PATIENT) 13.5 SEC (9.7-13.0)
[2023-06-02 11:57] LABS: CHLORIDE 104 mmol/L (98-107); POTASSIUM 3.5 mmol/L (3.5-5.1); SODIUM 137 mmol/L (136-145)
[2023-06-02 12:00] LABS: ALBUMIN 1.6 g/dl (3.4-5.0); ANION GAP 7 mmol/L (4-13); BLOOD UREA NITROGEN 12.6 mg/dL (7-18); CO2 26 mmol/L (21-32); GLUCOSE,RANDOM 77 mg/dL (74-106)
[2023-06-02 12:03] LABS: CREATININE 0.9 mg/dL (0.55-1.3); PHOSPHOROUS 3.3 mg/dL (2.5-4.9); SGOT/AST 13 U/L (15-37); SGPT/ALT < 6 U/L (13-61)
[2023-06-02 12:04] LABS: BILIRUBIN,TOTAL 0.4 mg/dL (0.2-1)
[2023-06-02 12:06] LABS: ALK PHOS 41 U/L (45-117)
[2023-06-02] MEDS ORDERED: BUPIVACAINE HCL/PF 0.5% (5MG/ML) 10 ML VIAL ONE (12:25)
[2023-06-02] MEDS ORDERED: INDOCYANINE GREEN 25 MG/10 ML VIAL IVPUSH ONE (12:34)
[2023-06-02] MEDS ORDERED: BUPIVACAINE HCL/PF 0.25% (2.5MG/ML) 10 ML VIAL ONE (12:35)
[2023-06-02] MEDS ORDERED: HEPARIN NA (PORCINE) 5,000 UNITS/ML 1ML VIAL ONE (12:35)
[2023-06-02] MEDS ORDERED: cefOXitin SODIUM 2 GM VIAL (RESTRICTED TO ID) IVPB ONE ×2 (12:35→12:36)
[2023-06-02] MEDS ORDERED: ROCURONIUM BROMIDE 50 MG/5 ML SYRINGE ONE (12:38)
[2023-06-02] MEDS ORDERED: PROPOFOL 20 ML ONE (12:38)
[2023-06-02] MEDS ORDERED: SUGAMMADEX SODIUM 200 MG/2 ML VIAL ONE (12:39)
[2023-06-02] MEDS: BUPIVACAINE 0.25% /EPI 1:200,000 10 ML VIAL INF ONE (13:16)
[2023-06-02] MEDS ORDERED: ONDANSETRON 4 MG/2 ML VIAL ONE (13:24)
[2023-06-02] MEDS ORDERED: DEXAMETHASONE SOD PHOSPHATE 4 MG/1 ML VIAL ONE (13:24)
[2023-06-02] MEDS ORDERED: HYDROmorphone HCl 2 MG/ML VIAL ONE (13:31)
[2023-06-02] MEDS: PIPERACILLIN/TAZOBACTAM 4.5 GM VIAL IVPB ONE (14:10)
[2023-06-02] MEDS: LACTATED RINGERS SOLUTION 1,000 ML IV SCH (15:30)
[2023-06-02] MEDS ORDERED: ONDANSETRON 4 MG/2 ML VIAL IVPUSH PRN (15:43)
[2023-06-02] MEDS: ACETAMINOPHEN 1000 MG/100 ML BAG IVPB ONE (16:12)
[2023-06-02] MEDS: ACETAMINOPHEN 1000 MG/100 ML BAG IVPB SCH (16:14)
[2023-06-02] MEDS: BACITRACIN ZINC 15 GM TUBE TOPICAL OINTMENT TP SCH (21:33)
[2023-06-03] MEDS: PIPERACILLIN/TAZOB 4.5 GM 4.5 GM in DEXTROSE 5%-WATER 100 ML IVPB SCH (02:05)
[2023-06-03] MEDS: PANTOPRAZOLE SODIUM 40 MG VIAL IVPUSH SCH (09:29)
[2023-06-03 10:00] LABS: HEMATOCRIT 21.7 % (35.4-49); MCH 26.1 pg (25.7-33.7); MEAN CELL VOLUME 84.2 fl (80-96); MEAN PLT VOLUME 7.3 fl (7.5-11.1); PLATELET COUNT 282 10^3/uL (134-434); RBC 2.58 M/mm3 (4.00-5.60); RDW 17.2 % (11.9-15.9); WHITE BLOOD COUNT 8.7 K/mm3 (4.0-10.0)
[2023-06-03 10:06] LABS: CHLORIDE 107 mmol/L (98-107); POTASSIUM 4.1 mmol/L (3.5-5.1); SODIUM 140 mmol/L (136-145)
[2023-06-03 10:12] LABS: ALBUMIN 1.4 g/dl (3.4-5.0); ANION GAP 5 mmol/L (4-13); BLOOD UREA NITROGEN 11.6 mg/dL (7-18); CO2 28 mmol/L (21-32); GLUCOSE,RANDOM 74 mg/dL (74-106); MAGNESIUM 1.8 mg/dL (1.8-2.4)
[2023-06-03 10:14] LABS: CREATININE 0.7 mg/dL (0.55-1.3); PHOSPHOROUS 4.1 mg/dL (2.5-4.9); SGOT/AST 12 U/L (15-37)
[2023-06-03 10:16] LABS: HEMOGLOBIN 6.7 GM/dL (11.7-16.9)
[2023-06-03 10:17] LABS: BILIRUBIN,TOTAL 0.3 mg/dL (0.2-1); TOT PROT 6.4 g/dl (6.4-8.2)
[2023-06-03 10:18] LABS: ALK PHOS 31 U/L (45-117)
[2023-06-03 10:25] LABS: SGPT/ALT < 6 U/L (13-61)
[2023-06-03] MEDS: morphine SULFATE 4 MG/ML VIAL IV PRN (17:10)
[2023-06-04 08:31] LABS: BASO % 0.3 % (0-2.0); EOS % 7.1 % (0-4.5); HEMATOCRIT 28.5 % (35.4-49); HEMOGLOBIN 8.9 GM/dL (11.7-16.9); LYMPH % 4.9 % (8-40); MCH 26.6 pg (25.7-33.7); MCHC 31.1 g/dl (32.0-35.9); MEAN CELL VOLUME 85.8 fl (80-96); MONO % 6.4 % (3.8-10.2); NEUT % 81.3 % (42.8-82.8); PLATELET COUNT 313 10^3/uL (134-434); RBC 3.32 M/mm3 (4.00-5.60); RDW 16.3 % (11.9-15.9); WHITE BLOOD COUNT 15.8 K/mm3 (4.0-10.0)
[2023-06-04 08:43] LABS: CHLORIDE 110 mmol/L (98-107); POTASSIUM 3.3 mmol/L (3.5-5.1); SODIUM 145 mmol/L (136-145)
[2023-06-04 08:46] LABS: CALCIUM 9.2 mg/dL (8.5-10.1)
[2023-06-04 08:47] LABS: ALBUMIN 1.5 g/dl (3.4-5.0); ANION GAP 8 mmol/L (4-13); BLOOD UREA NITROGEN 8.3 mg/dL (7-18); CO2 27 mmol/L (21-32); GLUCOSE,RANDOM 67 mg/dL (74-106)
[2023-06-04 08:50] LABS: CREATININE 0.7 mg/dL (0.55-1.3); SGOT/AST 13 U/L (15-37)
[2023-06-04 08:52] LABS: BILIRUBIN,TOTAL 0.6 mg/dL (0.2-1); TOT PROT 6.9 g/dl (6.4-8.2)
[2023-06-04 08:53] LABS: ALK PHOS 40 U/L (45-117)
[2023-06-04 08:56] LABS: SGPT/ALT < 6 U/L (13-61)
[2023-06-04 13:48] LABS: MAGNESIUM 1.8 mg/dL (1.8-2.4)
[2023-06-04 13:53] LABS: PHOSPHOROUS 3.4 mg/dL (2.5-4.9)
[2023-06-04] MEDS: VANCOMYCIN/WATER FOR INJ (PEG) 1,000 MG/200 ML BAG IVPB SCH (21:23)
[2023-06-05 11:10] LABS: MAGNESIUM 1.6 mg/dL (1.8-2.4)
[2023-06-05 18:13] LABS: POTASSIUM 3.2 mmol/L (3.5-5.1)
[2023-06-05 18:14] LABS: BLOOD UREA NITROGEN 6.4 mg/dL (7-18); CALCIUM 8.5 mg/dL (8.5-10.1)
[2023-06-05 18:18] LABS: CREATININE 0.8 mg/dL (0.55-1.3)
[2023-06-06 10:39] LABS: BASO % 0.3 % (0-2.0); EOS % 4.1 % (0-4.5); HEMATOCRIT 26.4 % (35.4-49); LYMPH % 5.2 % (8-40); MCH 26.4 pg (25.7-33.7); MCHC 30.4 g/dl (32.0-35.9); MEAN CELL VOLUME 86.8 fl (80-96); MEAN PLT VOLUME 7.4 fl (7.5-11.1); MONO % 6.2 % (3.8-10.2); NEUT % 84.2 % (42.8-82.8); PLATELET COUNT 261 10^3/uL (134-434); RBC 3.04 M/mm3 (4.00-5.60); RDW 16.7 % (11.9-15.9)
[2023-06-06 11:02] LABS: CHLORIDE 111 mmol/L (98-107); SODIUM 147 mmol/L (136-145)
[2023-06-06 11:04] LABS: ALBUMIN 1.3 g/dl (3.4-5.0); ANION GAP 6 mmol/L (4-13); BLOOD UREA NITROGEN 7.7 mg/dL (7-18); CALCIUM 8.6 mg/dL (8.5-10.1); CO2 30 mmol/L (21-32); GLUCOSE,RANDOM 125 mg/dL (74-106); MAGNESIUM 1.6 mg/dL (1.8-2.4)
[2023-06-06 11:23] LABS: ALK PHOS 50 U/L (45-117); BILIRUBIN,TOTAL 0.3 mg/dL (0.2-1); TOT PROT 6.7 g/dl (6.4-8.2)
[2023-06-06 11:28] LABS: SGPT/ALT < 6 U/L (13-61)
[2023-06-06 11:44] LABS: CREATININE 0.7 mg/dL (0.55-1.3); SGOT/AST 8 U/L (15-37)
[2023-06-06] MEDS: THIAMINE HCL 200 MG/2 ML VIAL IVPB ONE (14:10)
[2023-06-06] MEDS: KCL 10 MEQ IVPB 10 MEQ/100 ML INFUS.BAG IVPB SCH (16:02)
[2023-06-06] MEDS: MAGNESIUM SULF 50% (8.12 MEQ/2 ML-1 GM VIAL) IVPB ONE (16:43)
[2023-06-06] MEDS: HEPARIN NA (PORCINE) 5,000 UNITS/ML 1ML VIAL SQ SCH (23:16)
[2023-06-07 10:03] LABS: BASO % 0.2 % (0-2.0); EOS % 7.2 % (0-4.5); HEMATOCRIT 23.8 % (35.4-49); HEMOGLOBIN 7.7 GM/dL (11.7-16.9); MCH 27.2 pg (25.7-33.7); MCHC 32.2 g/dl (32.0-35.9); MEAN CELL VOLUME 84.5 fl (80-96); MEAN PLT VOLUME 7.4 fl (7.5-11.1); MONO % 6.3 % (3.8-10.2); NEUT % 81.3 % (42.8-82.8); PLATELET COUNT 260 10^3/uL (134-434); RBC 2.82 M/mm3 (4.00-5.60); RDW 17.1 % (11.9-15.9); WHITE BLOOD COUNT 15.5 K/mm3 (4.0-10.0)
[2023-06-07 10:42] LABS: CHLORIDE 114 mmol/L (98-107); POTASSIUM 3.3 mmol/L (3.5-5.1); SODIUM 148 mmol/L (136-145)
[2023-06-07 10:44] LABS: ALBUMIN 1.2 g/dl (3.4-5.0); ANION GAP 3 mmol/L (4-13); BLOOD UREA NITROGEN 11.2 mg/dL (7-18); CO2 32 mmol/L (21-32); MAGNESIUM 2.4 mg/dL (1.8-2.4)
[2023-06-07 10:47] LABS: CREATININE 0.8 mg/dL (0.55-1.3); GLUCOSE,RANDOM 115 mg/dL (74-106); SGOT/AST 10 U/L (15-37); SGPT/ALT < 6 U/L (13-61)
[2023-06-07 10:48] LABS: BILIRUBIN,TOTAL 0.3 mg/dL (0.2-1); TOT PROT 6.5 g/dl (6.4-8.2)
[2023-06-07 10:50] LABS: ALK PHOS 48 U/L (45-117)
[2023-06-07] MEDS: KCL 10 MEQ IVPB 10 MEQ/100 ML INFUS.BAG IVPB SCH (21:32)
[2023-06-08 09:27] LABS: BASO % 0.2 % (0-2.0); HEMATOCRIT 27.1 % (35.4-49); HEMOGLOBIN 8.4 GM/dL (11.7-16.9); LYMPH % 6.4 % (8-40); MCH 26.4 pg (25.7-33.7); MCHC 31.1 g/dl (32.0-35.9); MEAN CELL VOLUME 84.8 fl (80-96); MEAN PLT VOLUME 7.4 fl (7.5-11.1); MONO % 5.1 % (3.8-10.2); NEUT % 81.3 % (42.8-82.8); PLATELET COUNT 289 10^3/uL (134-434); RBC 3.19 M/mm3 (4.00-5.60); RDW 17.3 % (11.9-15.9); WHITE BLOOD COUNT 14.3 K/mm3 (4.0-10.0)
[2023-06-08 09:38] LABS: CHLORIDE 119 mmol/L (98-107); POTASSIUM 3.6 mmol/L (3.5-5.1); SODIUM 151 mmol/L (136-145)
[2023-06-08 09:46] LABS: ALBUMIN 1.3 g/dl (3.4-5.0); ANION GAP 1 mmol/L (4-13); BLOOD UREA NITROGEN 15.3 mg/dL (7-18); CALCIUM 8.3 mg/dL (8.5-10.1); CO2 31 mmol/L (21-32); MAGNESIUM 2.4 mg/dL (1.8-2.4)
[2023-06-08 09:49] LABS: CREATININE 0.7 mg/dL (0.55-1.3); SGPT/ALT < 6 U/L (13-61)
[2023-06-08 09:50] LABS: SGOT/AST 12 U/L (15-37)
[2023-06-08 09:51] LABS: BILIRUBIN,TOTAL 0.3 mg/dL (0.2-1)
[2023-06-08 09:52] LABS: ALK PHOS 55 U/L (45-117)
[2023-06-08 09:59] LABS: GLUCOSE,RANDOM 129 mg/dL (74-106)
[2023-06-08] MEDS: HYDROmorphone HCl 2 MG/ML VIAL IVPUSH PRN (11:53)
[2023-06-08] MEDS: ACETAMINOPHEN 325 MG TABLET (FP) PO SCH (11:54)
[2023-06-09 09:25] LABS: BASO % 0.2 % (0-2.0); EOS % 7.8 % (0-4.5); HEMATOCRIT 25.9 % (35.4-49); HEMOGLOBIN 7.9 GM/dL (11.7-16.9); LYMPH % 5.8 % (8-40); MCH 26.4 pg (25.7-33.7); MCHC 30.4 g/dl (32.0-35.9); MEAN CELL VOLUME 86.7 fl (80-96); MEAN PLT VOLUME 7.9 fl (7.5-11.1); NEUT % 80.2 % (42.8-82.8); PLATELET COUNT 289 10^3/uL (134-434); RBC 2.98 M/mm3 (4.00-5.60); RDW 17.8 % (11.9-15.9); WHITE BLOOD COUNT 13.8 K/mm3 (4.0-10.0)
[2023-06-09 09:50] LABS: CHLORIDE 122 mmol/L (98-107); POTASSIUM 3.8 mmol/L (3.5-5.1); SODIUM 155 mmol/L (136-145)
[2023-06-09 09:59] LABS: CALCIUM 8.5 mg/dL (8.5-10.1)
[2023-06-09 10:00] LABS: ALBUMIN 1.4 g/dl (3.4-5.0); ANION GAP 1 mmol/L (4-13); BLOOD UREA NITROGEN 18.4 mg/dL (7-18); CO2 32 mmol/L (21-32); GLUCOSE,RANDOM 115 mg/dL (74-106); MAGNESIUM 1.9 mg/dL (1.8-2.4)
[2023-06-09 10:02] LABS: PHOSPHOROUS 1.6 mg/dL (2.5-4.9)
[2023-06-09 10:03] LABS: CREATININE 0.7 mg/dL (0.55-1.3); SGOT/AST 17 U/L (15-37)
[2023-06-09 10:05] LABS: ALK PHOS 55 U/L (45-117); BILIRUBIN,TOTAL 0.3 mg/dL (0.2-1); TOT PROT 7.2 g/dl (6.4-8.2)
[2023-06-09 10:11] LABS: SGPT/ALT < 6 U/L (13-61)
[2023-06-09] MEDS: DEXTROSE 5%-WATER - 1,000 ML IV SCH (12:31)
[2023-06-09] MEDS: NAPH,MB-DB/K PH,MBDB POWDER PACKET PO SCH (15:19)
[2023-06-09 16:42] VITALS: BMI 19.4
[2023-06-09] MEDS: FUROSEMIDE 40 MG/4 ML INJECTABLE VIAL IVPUSH ONE (19:08)
[2023-06-10 08:54] LABS: BASO % 0.3 % (0-2.0); EOS % 10.8 % (0-4.5); HEMATOCRIT 28.2 % (35.4-49); HEMOGLOBIN 8.7 GM/dL (11.7-16.9); LYMPH % 9.5 % (8-40); MCH 26.5 pg (25.7-33.7); MCHC 30.8 g/dl (32.0-35.9); MEAN CELL VOLUME 85.8 fl (80-96); MEAN PLT VOLUME 7.8 fl (7.5-11.1); NEUT % 73.4 % (42.8-82.8); PLATELET COUNT 276 10^3/uL (134-434); RBC 3.29 M/mm3 (4.00-5.60); RDW 17.2 % (11.9-15.9)
[2023-06-10 09:11] LABS: CHLORIDE 110 mmol/L (98-107); POTASSIUM 3.7 mmol/L (3.5-5.1); SODIUM 144 mmol/L (136-145)
[2023-06-10 09:18] LABS: ANION GAP 6 mmol/L (4-13); CO2 28 mmol/L (21-32); GLUCOSE,RANDOM 83 mg/dL (74-106); MAGNESIUM 2.2 mg/dL (1.8-2.4)
[2023-06-10 09:19] LABS: ALBUMIN 1.4 g/dl (3.4-5.0); BLOOD UREA NITROGEN 15.1 mg/dL (7-18); CALCIUM 8.5 mg/dL (8.5-10.1)
[2023-06-10 09:20] LABS: SGPT/ALT < 6 U/L (13-61)
[2023-06-10 09:21] LABS: CREATININE 0.8 mg/dL (0.55-1.3); PHOSPHOROUS 3.7 mg/dL (2.5-4.9); SGOT/AST 18 U/L (15-37)
[2023-06-10 09:22] LABS: TOT PROT 7.4 g/dl (6.4-8.2)
[2023-06-10 09:23] LABS: BILIRUBIN,TOTAL 0.2 mg/dL (0.2-1)
[2023-06-10 09:24] LABS: ALK PHOS 54 U/L (45-117)
[2023-06-10] MEDS: MIDODRINE HCL 5 MG TABLET PO SCH (10:42)
[2023-06-10] MEDS: LORazepam 0.5 MG TABLET PO ONE (10:47)
[2023-06-10] MEDS: oxyCODONE HCL 5 MG TABLET PO PRN (10:57)
[2023-06-10] MEDS: FUROSEMIDE 40 MG/4 ML INJECTABLE VIAL IVPUSH SCH (11:25)
[2023-06-10] MEDS: ACETYLCYSTEINE 20% 200MG/ML 30 ML VIAL *FOR ORAL / INH USE ONLY NEB SCH (20:25)
[2023-06-10] MEDS: ALBUTEROL SO4 0.083% IH SOL 2.5 MG/3 ML VIAL.NEB. NEB SCH (20:26)
[2023-06-11] MEDS: ACETYLCYSTEINE 20% 200MG/ML 4 ML VIAL *FOR ORAL / INH USE ONLY NEB SCH (07:56)
[2023-06-11 09:37] LABS: BASO % 0.5 % (0-2.0); EOS % 9.1 % (0-4.5); HEMATOCRIT 26.2 % (35.4-49); HEMOGLOBIN 8.3 GM/dL (11.7-16.9); LYMPH % 10.9 % (8-40); MCH 27.1 pg (25.7-33.7); MCHC 31.5 g/dl (32.0-35.9); MEAN CELL VOLUME 86.1 fl (80-96); MEAN PLT VOLUME 8.5 fl (7.5-11.1); MONO % 5.8 % (3.8-10.2); NEUT % 73.7 % (42.8-82.8); PLATELET COUNT 267 10^3/uL (134-434); RBC 3.05 M/mm3 (4.00-5.60); RDW 17.2 % (11.9-15.9); WHITE BLOOD COUNT 10.6 K/mm3 (4.0-10.0)
[2023-06-11 09:46] LABS: CHLORIDE 110 mmol/L (98-107); POTASSIUM 3.9 mmol/L (3.5-5.1); SODIUM 145 mmol/L (136-145)
[2023-06-11 09:52] LABS: ALBUMIN 1.4 g/dl (3.4-5.0); ANION GAP 5 mmol/L (4-13); BLOOD UREA NITROGEN 17.3 mg/dL (7-18); CO2 30 mmol/L (21-32); GLUCOSE,RANDOM 80 mg/dL (74-106)
[2023-06-11 09:53] LABS: CALCIUM 8.3 mg/dL (8.5-10.1); PHOSPHOROUS 5.2 mg/dL (2.5-4.9)
[2023-06-11 09:55] LABS: SGPT/ALT < 6 U/L (13-61)
[2023-06-11 09:56] LABS: CREATININE 0.8 mg/dL (0.55-1.3); SGOT/AST 19 U/L (15-37)
[2023-06-11 09:57] LABS: BILIRUBIN,TOTAL 0.2 mg/dL (0.2-1); TOT PROT 6.9 g/dl (6.4-8.2)
[2023-06-11 09:58] LABS: ALK PHOS 51 U/L (45-117)
[2023-06-11] MEDS: SODIUM CHLORIDE 500 ML IV STA (17:10)
[2023-06-11] MEDS: LORazepam 0.5 MG TABLET PO ONE (17:11)
[2023-06-12 09:00] LABS: BASO % 0.4 % (0-2.0); HEMATOCRIT 29.3 % (35.4-49); HEMOGLOBIN 9.1 GM/dL (11.7-16.9); LYMPH % 8.3 % (8-40); MCH 26.7 pg (25.7-33.7); MCHC 31.1 g/dl (32.0-35.9); MEAN CELL VOLUME 85.8 fl (80-96); MEAN PLT VOLUME 8.5 fl (7.5-11.1); MONO % 6.2 % (3.8-10.2); NEUT % 79.1 % (42.8-82.8); PLATELET COUNT 302 10^3/uL (134-434); RBC 3.41 M/mm3 (4.00-5.60); RDW 17.3 % (11.9-15.9); WHITE BLOOD COUNT 14.1 K/mm3 (4.0-10.0)
[2023-06-12 09:26] LABS: CHLORIDE 109 mmol/L (98-107); POTASSIUM 3.5 mmol/L (3.5-5.1); SODIUM 146 mmol/L (136-145)
[2023-06-12 09:31] LABS: CALCIUM 9.2 mg/dL (8.5-10.1); GLUCOSE,RANDOM 84 mg/dL (74-106)
[2023-06-12 09:32] LABS: ANION GAP 6 mmol/L (4-13); BLOOD UREA NITROGEN 17.7 mg/dL (7-18); CO2 30 mmol/L (21-32); MAGNESIUM 1.8 mg/dL (1.8-2.4)
[2023-06-12 09:35] LABS: CREATININE 0.9 mg/dL (0.55-1.3); SGOT/AST 21 U/L (15-37)
[2023-06-12 09:36] LABS: BILIRUBIN,TOTAL 0.2 mg/dL (0.2-1); TOT PROT 8.2 g/dl (6.4-8.2)
[2023-06-12 09:38] LABS: ALK PHOS 64 U/L (45-117)
[2023-06-12 09:44] LABS: ALBUMIN 1.8 g/dl (3.4-5.0); SGPT/ALT < 6 U/L (13-61)
[2023-06-13 10:06] LABS: BASO % 0.5 % (0-2.0); EOS % 1.5 % (0-4.5); HEMATOCRIT 31.5 % (35.4-49); HEMOGLOBIN 9.4 GM/dL (11.7-16.9); LYMPH % 7.3 % (8-40); MCH 26.2 pg (25.7-33.7); MCHC 29.9 g/dl (32.0-35.9); MEAN CELL VOLUME 87.6 fl (80-96); MEAN PLT VOLUME 9.3 fl (7.5-11.1); MONO % 5.1 % (3.8-10.2); NEUT % 85.6 % (42.8-82.8); PLATELET COUNT 347 10^3/uL (134-434); RBC 3.59 M/mm3 (4.00-5.60); RDW 18.2 % (11.9-15.9); WHITE BLOOD COUNT 19.5 K/mm3 (4.0-10.0)
[2023-06-13 10:24] LABS: CHLORIDE 110 mmol/L (98-107); POTASSIUM 3.9 mmol/L (3.5-5.1); SODIUM 149 mmol/L (136-145)
[2023-06-13 10:34] LABS: ANION GAP 10 mmol/L (4-13); BLOOD UREA NITROGEN 17.4 mg/dL (7-18); CO2 29 mmol/L (21-32); CREATININE 1.1 mg/dL (0.55-1.3); GLUCOSE,RANDOM 95 mg/dL (74-106)
[2023-06-13 10:35] LABS: CALCIUM 9.7 mg/dL (8.5-10.1)
[2023-06-13 10:36] LABS: BILIRUBIN,TOTAL 0.3 mg/dL (0.2-1)
[2023-06-13 10:37] LABS: ALK PHOS 73 U/L (45-117)
[2023-06-13 10:38] LABS: SGOT/AST 21 U/L (15-37)
[2023-06-13 10:39] LABS: MAGNESIUM 2.1 mg/dL (1.8-2.4)
[2023-06-13 10:46] LABS: SGPT/ALT < 6 U/L (13-61)
[2023-06-13] MEDS: POTASSIUM CHLORIDE 10 MEQ in DEXTROSE 5%-WATER - 1,000 ML IV SCH (16:44)
[2023-06-14 09:59] LABS: HEMATOCRIT 30.4 % (35.4-49); HEMOGLOBIN 9.1 GM/dL (11.7-16.9); MCH 26.3 pg (25.7-33.7); MCHC 30.1 g/dl (32.0-35.9); MEAN CELL VOLUME 87.3 fl (80-96); MEAN PLT VOLUME 8.6 fl (7.5-11.1); PLATELET COUNT 363 10^3/uL (134-434); RBC 3.48 M/mm3 (4.00-5.60); RDW 17.8 % (11.9-15.9); WHITE BLOOD COUNT 24.6 K/mm3 (4.0-10.0)
[2023-06-14 10:19] LABS: CHLORIDE 104 mmol/L (98-107); POTASSIUM 4.1 mmol/L (3.5-5.1); SODIUM 144 mmol/L (136-145)
[2023-06-14 10:23] LABS: ALBUMIN 2.1 g/dl (3.4-5.0); ANION GAP 7 mmol/L (4-13); BLOOD UREA NITROGEN 17.6 mg/dL (7-18); CO2 33 mmol/L (21-32); GLUCOSE,RANDOM 78 mg/dL (74-106); MAGNESIUM 2.1 mg/dL (1.8-2.4)
[2023-06-14 10:24] LABS: CALCIUM 10.2 mg/dL (8.5-10.1)
[2023-06-14 10:26] LABS: CREATININE 1.2 mg/dL (0.55-1.3); SGOT/AST 22 U/L (15-37)
[2023-06-14 10:28] LABS: BILIRUBIN,TOTAL 0.5 mg/dL (0.2-1); TOT PROT 9.6 g/dl (6.4-8.2)
[2023-06-14 10:29] LABS: ALK PHOS 82 U/L (45-117)
[2023-06-14 10:33] LABS: SGPT/ALT < 6 U/L (13-61)
[2023-06-14 12:36] LABS: ANISOCYTOSIS 0; HELMET CELLS 0; HOWELL-JOLLY BODIES 0; MACROCYTOSIS 0; OVALOCYTE 0; ROULEAU 0; SICKELED CELLS 0; TARGET CELLS 0; TEAR DROP CELLS 0; TOXIC GRANULATION 0
[2023-06-14] MEDS: PIPERACILLIN/TAZOB 4.5 GM 4.5 GM in DEXTROSE 5%-WATER 100 ML IVPB SCH (13:18)
[2023-06-14] MEDS: SODIUM CHLORIDE 500 ML IV ONE ×2 (14:45→17:13)
[2023-06-14] MEDS: SODIUM CHLORIDE 0.45% 1,000 ML IV SCH (15:19)
[2023-06-14] MEDS: PIPERACILLIN/TAZOB 3.375 GM 3.375 GM in DEXTROSE 5%-WATER - 50 ML IVPB ONE (15:45)
[2023-06-14] MEDS: MIDODRINE HCL 5 MG TABLET PO SCH (17:44)
[2023-06-14] MEDS: LACTATED RINGERS SOLUTION 1000 ML INFUS.BAG IV ONE (17:44)
[2023-06-15 08:11] LABS: HEMATOCRIT 30.2 % (35.4-49); HEMOGLOBIN 9.1 GM/dL (11.7-16.9); MCH 26.5 pg (25.7-33.7); MCHC 30.3 g/dl (32.0-35.9); MEAN CELL VOLUME 87.4 fl (80-96); MEAN PLT VOLUME 8.8 fl (7.5-11.1); PLATELET COUNT 309 10^3/uL (134-434); RBC 3.46 M/mm3 (4.00-5.60); RDW 19.1 % (11.9-15.9); WHITE BLOOD COUNT 21.3 K/mm3 (4.0-10.0)
[2023-06-15 08:13] LABS: CHLORIDE 106 mmol/L (98-107); POTASSIUM 3.9 mmol/L (3.5-5.1); SODIUM 142 mmol/L (136-145)
[2023-06-15 08:18] LABS: CALCIUM 8.9 mg/dL (8.5-10.1)
[2023-06-15 08:19] LABS: ALBUMIN 1.7 g/dl (3.4-5.0); ANION GAP 6 mmol/L (4-13); BLOOD UREA NITROGEN 19.2 mg/dL (7-18); CO2 30 mmol/L (21-32); GLUCOSE,RANDOM 64 mg/dL (74-106); MAGNESIUM 2.3 mg/dL (1.8-2.4)
[2023-06-15 08:21] LABS: SGPT/ALT < 6 U/L (13-61)
[2023-06-15 08:22] LABS: BILIRUBIN,TOTAL 0.4 mg/dL (0.2-1); CREATININE 1.1 mg/dL (0.55-1.3); PHOSPHOROUS 5.7 mg/dL (2.5-4.9); SGOT/AST 18 U/L (15-37)
[2023-06-15 08:23] LABS: ALK PHOS 71 U/L (45-117); TOT PROT 8.4 g/dl (6.4-8.2)
[2023-06-15 10:03] LABS: ANISOCYTOSIS 1+; MACROCYTOSIS 1+
[2023-06-16 07:39] LABS: CHLORIDE 106 mmol/L (98-107); SODIUM 142 mmol/L (136-145)
[2023-06-16 07:41] LABS: HEMATOCRIT 28.5 % (35.4-49); HEMOGLOBIN 8.7 GM/dL (11.7-16.9); MCH 27.1 pg (25.7-33.7); MCHC 30.6 g/dl (32.0-35.9); MEAN CELL VOLUME 88.6 fl (80-96); MEAN PLT VOLUME 8.6 fl (7.5-11.1); PLATELET COUNT 321 10^3/uL (134-434); RBC 3.21 M/mm3 (4.00-5.60); WHITE BLOOD COUNT 21.1 K/mm3 (4.0-10.0)
[2023-06-16 07:57] LABS: ALBUMIN 1.6 g/dl (3.4-5.0); ANION GAP 6 mmol/L (4-13); BLOOD UREA NITROGEN 16.5 mg/dL (7-18); CO2 30 mmol/L (21-32); GLUCOSE,RANDOM 94 mg/dL (74-106); MAGNESIUM 2.1 mg/dL (1.8-2.4)
[2023-06-16 07:58] LABS: PHOSPHOROUS 4.7 mg/dL (2.5-4.9)
[2023-06-16 07:59] LABS: BILIRUBIN,TOTAL 0.3 mg/dL (0.2-1); TOT PROT 8.4 g/dl (6.4-8.2)
[2023-06-16 08:00] LABS: ALK PHOS 77 U/L (45-117); CREATININE 0.9 mg/dL (0.55-1.3); SGOT/AST 16 U/L (15-37)
[2023-06-16 08:34] LABS: SGPT/ALT < 6 U/L (13-61)
[2023-06-16 08:50] LABS: ANISOCYTOSIS 1+; MACROCYTOSIS 0
[2023-06-16] MEDS: METOPROLOL TARTRATE 25 MG TABLET (FP) PO SCH ×2 (09:26→21:52)
[2023-06-16] MEDS: LORazepam 1 MG TABLET PO PRN (15:45)
[2023-06-16] MEDS: ACETAMINOPHEN 325 MG TABLET (FP) PO PRN (15:46)
[2023-06-16] MEDS: oxyCODONE HCL 5 MG TABLET PO PRN (21:52)
[2023-06-17 07:24] LABS: BASO % 0.3 % (0-2.0); EOS % 10.3 % (0-4.5); HEMATOCRIT 29.2 % (35.4-49); HEMOGLOBIN 8.8 GM/dL (11.7-16.9); LYMPH % 5.3 % (8-40); MCH 26.7 pg (25.7-33.7); MCHC 30.2 g/dl (32.0-35.9); MEAN CELL VOLUME 88.4 fl (80-96); MEAN PLT VOLUME 8.7 fl (7.5-11.1); MONO % 5.2 % (3.8-10.2); NEUT % 78.9 % (42.8-82.8); PLATELET COUNT 342 10^3/uL (134-434); RDW 19.8 % (11.9-15.9)
[2023-06-17 07:36] LABS: CHLORIDE 105 mmol/L (98-107); POTASSIUM 4.1 mmol/L (3.5-5.1); SODIUM 139 mmol/L (136-145)
[2023-06-17 07:42] LABS: ALBUMIN 1.6 g/dl (3.4-5.0); ANION GAP 6 mmol/L (4-13); BLOOD UREA NITROGEN 14.4 mg/dL (7-18); CALCIUM 9.3 mg/dL (8.5-10.1); CO2 28 mmol/L (21-32); GLUCOSE,RANDOM 99 mg/dL (74-106); MAGNESIUM 1.9 mg/dL (1.8-2.4)
[2023-06-17 07:44] LABS: CREATININE 0.9 mg/dL (0.55-1.3); SGPT/ALT < 6 U/L (13-61)
[2023-06-17 07:45] LABS: BILIRUBIN,TOTAL 0.4 mg/dL (0.2-1); TOT PROT 8.3 g/dl (6.4-8.2)
[2023-06-17 07:46] LABS: ALK PHOS 72 U/L (45-117); SGOT/AST 13 U/L (15-37)
[2023-06-17] MEDS: AMINO ACIDS/PROTEIN HYDROLYS 30 ML LIQUID.PKT PO SCH (08:53)
[2023-06-17] MEDS: ASCORBIC ACID 500 MG TABLET (FP) PO SCH (10:39)
[2023-06-17] MEDS: ZINC SULFATE 220 MG CAPSULE (FP) PO SCH (10:39)
[2023-06-17] MEDS: MULTIVITAMINS (DAILY MVI) TABLET (FP) PO SCH (10:39)
[2023-06-18 08:18] LABS: BASO % 0.4 % (0-2.0); EOS % 13.4 % (0-4.5); HEMATOCRIT 27.9 % (35.4-49); HEMOGLOBIN 8.4 GM/dL (11.7-16.9); LYMPH % 6.7 % (8-40); MCH 26.9 pg (25.7-33.7); MCHC 30.1 g/dl (32.0-35.9); MEAN CELL VOLUME 89.4 fl (80-96); MEAN PLT VOLUME 8.6 fl (7.5-11.1); MONO % 7.7 % (3.8-10.2); NEUT % 71.8 % (42.8-82.8); PLATELET COUNT 338 10^3/uL (134-434); RBC 3.12 M/mm3 (4.00-5.60); RDW 19.3 % (11.9-15.9); WHITE BLOOD COUNT 13.4 K/mm3 (4.0-10.0)
[2023-06-18 08:34] LABS: POTASSIUM 4.1 mmol/L (3.5-5.1)
[2023-06-18 08:37] LABS: CHLORIDE 104 mmol/L (98-107); SODIUM 138 mmol/L (136-145)
[2023-06-18 08:41] LABS: CALCIUM 9.6 mg/dL (8.5-10.1)
[2023-06-18 08:42] LABS: BLOOD UREA NITROGEN 18.2 mg/dL (7-18)
[2023-06-18 08:45] LABS: CREATININE 0.8 mg/dL (0.55-1.3)
[2023-06-18 08:45] LABS: ALBUMIN 1.6 g/dl (3.4-5.0); BLOOD UREA NITROGEN 17.1 mg/dL (7-18); CALCIUM 9.3 mg/dL (8.5-10.1); GLUCOSE,RANDOM 97 mg/dL (74-106)
[2023-06-18 08:46] LABS: ANION GAP 5 mmol/L (4-13); CO2 29 mmol/L (21-32); MAGNESIUM 2.1 mg/dL (1.8-2.4)
[2023-06-18 08:48] LABS: CREATININE 0.8 mg/dL (0.55-1.3); PHOSPHOROUS 3.8 mg/dL (2.5-4.9); SGOT/AST 16 U/L (15-37); SGPT/ALT < 6 U/L (13-61)
[2023-06-18 08:50] LABS: BILIRUBIN,TOTAL 0.3 mg/dL (0.2-1)
[2023-06-18 08:51] LABS: ALK PHOS 69 U/L (45-117)
[2023-06-19 07:46] LABS: BLOOD UREA NITROGEN 20.4 mg/dL (7-18); MAGNESIUM 1.9 mg/dL (1.8-2.4)
[2023-06-19 07:48] LABS: CALCIUM 9.5 mg/dL (8.5-10.1)
[2023-06-19 07:50] LABS: CREATININE 0.9 mg/dL (0.55-1.3)
[2023-06-19 07:53] LABS: BASO % 0.4 % (0-2.0); HEMATOCRIT 28.2 % (35.4-49); HEMOGLOBIN 8.8 GM/dL (11.7-16.9); LYMPH % 7.9 % (8-40); MCH 27.3 pg (25.7-33.7); MCHC 31.3 g/dl (32.0-35.9); MEAN CELL VOLUME 87.1 fl (80-96); MEAN PLT VOLUME 8.6 fl (7.5-11.1); MONO % 7.3 % (3.8-10.2); NEUT % 71.4 % (42.8-82.8); PLATELET COUNT 357 10^3/uL (134-434); RBC 3.23 M/mm3 (4.00-5.60); RDW 18.6 % (11.9-15.9); WHITE BLOOD COUNT 10.8 K/mm3 (4.0-10.0)
[2023-06-19] MEDS: SODIUM CHLORIDE 1,000 ML IV STA (08:58)
[2023-06-19] MEDS ORDERED: ONDANSETRON 4 MG/2 ML VIAL IVPUSH PRN (10:44)
[2023-06-19] MEDS: PANTOPRAZOLE 40 MG TABLET PO SCH (10:58)
[2023-06-19] MEDS: MAGNESIUM OXIDE 400 MG TABLET (FP) PO ONE (10:58)
[2023-06-19] MEDS: SODIUM CHLORIDE 0.45% 1,000 ML IV SCH (11:00)
[2023-06-19] MEDS: PIPERACILLIN/TAZOB 4.5 GM 4.5 GM in DEXTROSE 5%-WATER 100 ML IVPB SCH (11:12)
[2023-06-19] MEDS: MIDODRINE HCL 5 MG TABLET PO SCH (11:13)
[2023-06-19] MEDS: BACITRACIN ZINC 15 GM TUBE TOPICAL OINTMENT TP SCH (11:13)
[2023-06-19 11:59] LABS: LACTIC ACID 2.2 mmol/L (0.4-2.0)
[2023-06-19] MEDS: ACETYLCYSTEINE 20% 200MG/ML 4 ML VIAL *FOR ORAL / INH USE ONLY NEB SCH (14:17)
[2023-06-19] MEDS: ALBUTEROL SO4 0.083% IH SOL 2.5 MG/3 ML VIAL.NEB. NEB SCH (14:18)
[2023-06-19] MEDS: HEPARIN NA (PORCINE) 5,000 UNITS/ML 1ML VIAL SQ SCH (15:56)
[2023-06-20 07:55] LABS: BASO % 0.6 % (0-2.0); EOS % 10.9 % (0-4.5); HEMATOCRIT 26.7 % (35.4-49); HEMOGLOBIN 8.1 GM/dL (11.7-16.9); LYMPH % 6.9 % (8-40); MCH 26.5 pg (25.7-33.7); MCHC 30.4 g/dl (32.0-35.9); MEAN CELL VOLUME 86.9 fl (80-96); MEAN PLT VOLUME 8.6 fl (7.5-11.1); MONO % 7.9 % (3.8-10.2); NEUT % 73.7 % (42.8-82.8); PLATELET COUNT 375 10^3/uL (134-434); RBC 3.08 M/mm3 (4.00-5.60); RDW 18.6 % (11.9-15.9); WHITE BLOOD COUNT 11.1 K/mm3 (4.0-10.0)
[2023-06-20 08:21] LABS: CHLORIDE 104 mmol/L (98-107); POTASSIUM 3.6 mmol/L (3.5-5.1); SODIUM 138 mmol/L (136-145)
[2023-06-20 08:27] LABS: ANION GAP 5 mmol/L (4-13); BLOOD UREA NITROGEN 20.5 mg/dL (7-18); CALCIUM 9.5 mg/dL (8.5-10.1); CO2 29 mmol/L (21-32); GLUCOSE,RANDOM 120 mg/dL (74-106); MAGNESIUM 1.9 mg/dL (1.8-2.4)
[2023-06-20 08:28] LABS: ALBUMIN 1.6 g/dl (3.4-5.0)
[2023-06-20 08:29] LABS: CREATININE 0.9 mg/dL (0.55-1.3)
[2023-06-20 08:30] LABS: SGOT/AST 14 U/L (15-37); SGPT/ALT < 6 U/L (13-61); TOT PROT 7.9 g/dl (6.4-8.2)
[2023-06-20 08:31] LABS: ALK PHOS 58 U/L (45-117); BILIRUBIN,TOTAL 0.4 mg/dL (0.2-1)
[2023-06-20] MEDS ORDERED: PANTOPRAZOLE SODIUM 40 MG VIAL IVPUSH SCH (10:00)
[2023-06-20] MEDS: OXYBUTYNIN CHLORIDE 5 MG TABLET PO SCH (16:29)
[2023-06-21 08:36] LABS: EOS % 11.5 % (0-4.5); HEMATOCRIT 25.4 % (35.4-49); HEMOGLOBIN 7.8 GM/dL (11.7-16.9); LYMPH % 8.2 % (8-40); MCH 26.4 pg (25.7-33.7); MCHC 30.8 g/dl (32.0-35.9); MEAN CELL VOLUME 85.8 fl (80-96); MEAN PLT VOLUME 8.5 fl (7.5-11.1); MONO % 6.2 % (3.8-10.2); NEUT % 73.1 % (42.8-82.8); PLATELET COUNT 371 10^3/uL (134-434); RBC 2.96 M/mm3 (4.00-5.60); RDW 19.1 % (11.9-15.9); WHITE BLOOD COUNT 11.9 K/mm3 (4.0-10.0)
[2023-06-21 08:49] LABS: CHLORIDE 102 mmol/L (98-107); POTASSIUM 3.6 mmol/L (3.5-5.1); SODIUM 138 mmol/L (136-145)
[2023-06-21 08:50] LABS: ANION GAP 8 mmol/L (4-13); BLOOD UREA NITROGEN 18.5 mg/dL (7-18); CALCIUM 9.2 mg/dL (8.5-10.1); CO2 29 mmol/L (21-32); GLUCOSE,RANDOM 88 mg/dL (74-106)
[2023-06-21 08:51] LABS: ALBUMIN 1.6 g/dl (3.4-5.0); MAGNESIUM 1.9 mg/dL (1.8-2.4)
[2023-06-21 08:53] LABS: CREATININE 0.8 mg/dL (0.55-1.3)
[2023-06-21 08:54] LABS: SGOT/AST 18 U/L (15-37)
[2023-06-21 08:55] LABS: BILIRUBIN,TOTAL 0.3 mg/dL (0.2-1); TOT PROT 8.2 g/dl (6.4-8.2)
[2023-06-21 09:14] LABS: ALK PHOS 58 U/L (45-117)
[2023-06-21 09:16] LABS: SGPT/ALT < 6 U/L (13-61)
[2023-06-22 07:43] LABS: BASO % 0.7 % (0-2.0); EOS % 11.2 % (0-4.5); HEMATOCRIT 25.4 % (35.4-49); LYMPH % 8.8 % (8-40); MCHC 31.5 g/dl (32.0-35.9); MEAN CELL VOLUME 85.8 fl (80-96); MEAN PLT VOLUME 8.3 fl (7.5-11.1); MONO % 8.7 % (3.8-10.2); NEUT % 70.6 % (42.8-82.8); PLATELET COUNT 409 10^3/uL (134-434); RBC 2.96 M/mm3 (4.00-5.60); RDW 18.9 % (11.9-15.9)
[2023-06-22 07:59] LABS: CHLORIDE 102 mmol/L (98-107); POTASSIUM 4.5 mmol/L (3.5-5.1); SODIUM 138 mmol/L (136-145)
[2023-06-22 08:06] LABS: ALBUMIN 1.6 g/dl (3.4-5.0); ANION GAP 7 mmol/L (4-13); CO2 30 mmol/L (21-32); GLUCOSE,RANDOM 94 mg/dL (74-106); MAGNESIUM 1.9 mg/dL (1.8-2.4)
[2023-06-22 08:09] LABS: CREATININE 0.8 mg/dL (0.55-1.3); SGOT/AST 39 U/L (15-37)
[2023-06-22 08:10] LABS: BILIRUBIN,TOTAL 0.4 mg/dL (0.2-1); TOT PROT 8.4 g/dl (6.4-8.2)
[2023-06-22 08:12] LABS: ALK PHOS 53 U/L (45-117)
[2023-06-22 08:19] LABS: SGPT/ALT < 6 U/L (13-61)
[2023-06-23] MEDS: LINEZOLID 600 MG TABLET (RESTRICTED TO ID) PO SCH (01:17)
[2023-06-23 14:56] VITALS: BP 155/89; PULSE 101; RESP 18; TEMP 98.2
== END 2023-06-23 17:00 | DRG 673 ==
LOC: JER 15:23 → JERBED 18:35 → J4S 05-19 04:04 → J6S 05-26 22:33 → J8W 06-02 17:15 → J6S 06-13 12:57 → J4W 06-14 19:32
PROVIDERS: ADMIT Internal Medicine; ATTEND Nurse Practitioner Family
PROC: 30233N1 Transfusion of Nonautologous Red Blood Cells into Peripheral Vein, Percutaneous Approach (ICD-10-PCS; 2023-05-18)
PROC: 3E1K88Z Irrigation of Genitourinary Tract using Irrigating Substance, Via Natural or Artificial Opening Endoscopic (ICD-10-PCS; 2023-05-29)
PROC: 0T9B30Z Drainage of Bladder with Drainage Device, Percutaneous Approach (ICD-10-PCS; 2023-05-29)
PROC: 0DQB0ZZ Repair Ileum, Open Approach (ICD-10-PCS; 2023-06-02)
PROC: 0WPG00Z Removal of Drainage Device from Peritoneal Cavity, Open Approach (ICD-10-PCS; 2023-06-02)
PROC: 0DNW4ZZ Release Peritoneum, Percutaneous Endoscopic Approach (ICD-10-PCS; principal; 2023-06-02 11:30)
PROC: 0DCB0ZZ Extirpation of Matter from Ileum, Open Approach (ICD-10-PCS; 2023-06-02 11:30)
PROC: 0T25X0Z Change Drainage Device in Kidney, External Approach (ICD-10-PCS; 2023-06-14)
PROC: 0T25X0Z Change Drainage Device in Kidney, External Approach (ICD-10-PCS; 2023-06-14)
DX: T83.512A Infection and inflammatory reaction due to nephrostomy catheter, initial encounter (principal); A41.52 Sepsis due to Pseudomonas; E43 Unspecified severe protein-calorie malnutrition; K63.1 Perforation of intestine (nontraumatic); J96.01 Acute respiratory failure with hypoxia; K65.1 Peritoneal abscess; G82.20 Paraplegia, unspecified; N39.0 Urinary tract infection, site not specified; Z68.1 Body mass index [BMI] 19.9 or less, adult; N17.9 Acute kidney failure, unspecified; S36.498A Other injury of other part of small intestine, initial encounter; L97.528 Non-pressure chronic ulcer of other part of left foot with other specified severity; E87.0 Hyperosmolality and hypernatremia; J90 Pleural effusion, not elsewhere classified; J98.11 Atelectasis; N13.4 Hydroureter; T17.590A Other foreign object in bronchus causing asphyxiation, initial encounter; L03.114 Cellulitis of left upper limb; N99.522 Malfunction of incontinent external stoma of urinary tract; L89.322 Pressure ulcer of left buttock, stage 2; L89.312 Pressure ulcer of right buttock, stage 2; Y83.8 Other surgical procedures as the cause of abnormal reaction of the patient, or of later complication, without mention of misadventure at the time of the procedure; X58.XXXA Exposure to other specified factors, initial encounter; Y92.89 Other specified places as the place of occurrence of the external cause; Y99.9 Unspecified external cause status; Y93.9 Activity, unspecified; T83.092A Other mechanical complication of nephrostomy catheter, initial encounter; N31.9 Neuromuscular dysfunction of bladder, unspecified; K66.0 Peritoneal adhesions (postprocedural) (postinfection); N18.9 Chronic kidney disease, unspecified; D72.829 Elevated white blood cell count, unspecified; F12.90 Cannabis use, unspecified, uncomplicated; B96.5 Pseudomonas (aeruginosa) (mallei) (pseudomallei) as the cause of diseases classified elsewhere; R31.0 Gross hematuria; B96.1 Klebsiella pneumoniae [K. pneumoniae] as the cause of diseases classified elsewhere; R00.0 Tachycardia, unspecified; R63.4 Abnormal weight loss; I95.9 Hypotension, unspecified; D64.9 Anemia, unspecified; N20.0 Calculus of kidney; K59.00 Constipation, unspecified; N13.9 Obstructive and reflux uropathy, unspecified; Z86.718 Personal history of other venous thrombosis and embolism; Z53.31 Laparoscopic surgical procedure converted to open procedure
CPT/HCPCS: 36415; 36430; 50435; 71045-TC-FY; 71250-TC; 74018-TC-FY; 74176-TC; 74177-TC; 76775-TC; 76870-TC; 80048; 80053; 81003; 82248; 82533; 82803; 82962; 83605; 83735; 84100; 84484; 85025; 85027; 85610; 85730; 86140; 86707; 86780; 86850; 86900; 86901; 86922; 87040; 87070; 87075; 87086; 87186; 87205; 87340; 87350; 87389; 87517; 87522; 87635; 90686; 93005; 93010; 94010; 94640; 94760; 94761; 97161-GP; 99285-25; G0008; J0131; J1644; P9038; P9058; Q9967